=== PATIENT | male | born 1930 | race Caucasian/White ===

== ENCOUNTER 2016-12-21 13:42 | Emergency (ER) | payer MEDICARE, BC ==
--- NOTE | 2016-12-21 17:01 | US ---
Bilateral lower extremity deep venous ultrasound: Duplex and color flow imaging was obtained of the right and left common femoral, greater saphenous, superficial femoral, popliteal, posterior tibial and peroneal veins. Normal phasic flow, augmentation and compression is seen. Popliteal cysts are identified on both sides, larger on the right side. Impression: 1. Incidental popliteal cyst. 2. No evidence of deep venous thrombosis is seen within either the right or left lower extremities. Diagnostic code #2
--- NOTE | 2016-12-21 17:26 | EDM.PDOC ---
ED HPI GENERAL MEDICAL PROBLEM - General Chief Complaint: Cardiovascular Problem Stated Complaint: LEG SWELLING Time Seen by Provider: 12/21/16 14:07 Source of Information: Reports: Patient, Old Records, RN Notes Reviewed History Limitations: Reports: Other (The patient is somewhat confused and a very poor historian.) - History of Present Illness INITIAL COMMENTS - FREE TEXT/NARRATIVE: The patient states that he has had bilateral lower extremity edema for the past 7-10 days. No associated pain. The patient had a left lower 70 DVT at least one year ago, for which she was treated with Ellik was. This was discontinued 2016. The patient reports, however, that he has had bilateral lower extremity edema for approximately 2 years. He has previously had this treated with compression stockings, and the swelling decreased, until 7-10 days ago. The patient states that his last use of compression stockings was sometime around the new year. The patient states that he went to the office of Dr. Arteaga either yesterday or today, and was sent here. The patient denies recent chest pain, dyspnea, or palpitations. - Related Data Allergies Allergy/AdvReac Type Severity Reaction Status Date / Time No Known Drug Allergies Allergy none Verified 12/21/16 13:47 Home Meds: Home Meds Finasteride 5 mg PO DAILY 12/21/16 [History] Fish Oil/DHA/EPA [Fish Oil 1,200 MG] 1 each PO DAILY 12/21/16 [History] Levothyroxine [Synthroid] 88 mcg PO ACBREAKFAST 12/21/16 [History] Multivitamin [Daily Multiple Vitamin] 1 tab PO DAILY 12/21/16 [History] Terazosin [Hytrin] 4 mg PO BEDTIME 12/21/16 [History] atorvaSTATin [Lipitor] 40 mg PO BEDTIME 12/21/16 [History] Past Medical History Cardiovascular History: Reports: Blood Clots/VTE/DVT, High Cholesterol, Hypertension Gastrointestinal History: Reports: Diverticulosis, GERD Genitourinary History: Reports: BPH Endocrine/Metabolic History: Reports: Hypothyroidism Social & Family History - Tobacco Use Smoking Status *Q: Former Smoker Month Tobacco Last Used: Quit 1961 - Recreational Drug Use Recreational Drug Use: No - Living Situation & Occupation Living situation: Reports: Occupation: Retired ED ROS GENERAL - Review of Systems Review Of Systems: Unable To Obtain ED EXAM, GENERAL - Physical Exam Exam: See Below Exam Limited By: No Limitations General Appearance: Alert, WD/WN, No Apparent Distress Respiratory/Chest: No Respiratory Distress, Lungs Clear, Normal Breath Sounds, No Accessory Muscle Use Cardiovascular: Normal Peripheral Pulses, Regular Rate, Rhythm, No Gallop, No JVD, No Murmur, No Rub Peripheral Pulses: 4+: Radial (L), Radial (R) GI/Abdominal: Normal Bowel Sounds, Soft, Non-Tender, No Organomegaly, No Distention, No Abnormal Bruit, No Mass Extremities: Normal Inspection, Normal Range of Motion, Non-Tender, Normal Capillary Refill, Other (2+ pitting edema bilateral legs. Edema does not extend above the knees.) Neurological: Alert, No Motor/Sensory Deficits Psychiatric: Normal Affect Skin Exam: Warm, Dry, Intact, Normal Color, No Rash Course - Vital Signs Last Recorded V/S: Last Vital Signs Temp 36.8 C 12/21/16 13:50 Pulse 66 12/21/16 13:50 Resp 18 12/21/16 13:50 BP 128/69 12/21/16 13:50 Pulse Ox 99 12/21/16 13:50 - Orders/Labs/Meds Labs: Laboratory Tests 12/21/16 12/21/16 12/21/16 Range/Units 14:40 14:40 14:40 WBC 4.86 (4.23-9.07) K/mm3 RBC 3.83 L (4.63-6.08) M/mm3 Hgb 13.0 L (13.7-17.5) gm/L Hct 37.8 L (40.1-51.0) % MCV 98.7 H (79.0-92.2) fl MCH 33.9 H (25.7-32.2) pg MCHC 34.4 (32.2-35.5) g/dl RDW Std Deviation 48.9 H (35.1-43.9) fL Plt Count 125 L (163-337) K/mm3 MPV 8.0 L (9.4-12.3) fl Neutrophils % (Manual) 79 H (40-60) % Band Neutrophils % 0 (0-10) % Lymphocytes % (Manual) 18 L (20-40) % Atypical Lymphs % 0 % Monocytes % (Manual) 0 L (2-10) % Eosinophils % (Manual) 3 (0.8-7.0) % Basophils % (Manual) 0 L (0.2-1.2) Platelet Estimate Adequate RBC Morph Comment Normal PT 11.7 (8.0-13.0) SECONDS INR 1.07 APTT 29 (22-36) SECONDS Sodium 140 (136-145) mEq/L Potassium 4.3 (3.5-5.1) mEq/L Chloride 106 (98-107) mEq/L Carbon Dioxide 27 (21-32) mEq/L Anion Gap 11.3 (5-15) BUN 17 (7-18) mg/dL Creatinine 1.1 (0.7-1.3) mg/dL Est Cr Clr Drug Dosing 53.24 mL/min Estimated GFR (MDRD) > 60 (>60) mL/min BUN/Creatinine Ratio 15.5 (14-18) Glucose 108 (83-115) mg/dL Calcium 9.2 (8.5-10.1) mg/dL Total Bilirubin 0.4 (0.2-1.0) mg/dL AST 20 (15-37) U/L ALT 29 (16-63) U/L Alkaline Phosphatase 53 (46-116) U/L Total Protein 5.9 L (6.4-8.2) g/dl Albumin 3.0 L (3.4-5.0) g/dl Globulin 2.9 gm/dL Albumin/Globulin Ratio 1.0 (1-2) - Re-Assessments/Exams Free Text/Narrative Re-Assessment/Exam: 12/21/16 17:21 Venous Doppler of the bilateral lower extremities is read by Dr. Pimentel as: 1. Incidental popliteal cyst. 2. No evidence of deep venous thrombosis is seen within either the right or left lower extremities. 12/21/16 17:26 Test results discussed with the patient. The patient's bilateral lower extremity edema appears to be due to venous insufficiency. I am recommending to the patient that he resume using compression stockings, and elevate his lower extremities as much as possible when not ambulating. Departure - Departure Time of Disposition: 17:27 Disposition: Home, Self-Care 01 Condition: Good Clinical Impression: Venous insufficiency of both lower extremities Instructions: Edema Referrals: Brooks Arteaga MD [Primary Care Provider] - Forms: ED Department Discharge Additional Instructions: You were seen in the emergency room for swelling of both of your legs for the past 7-10 days. Workup in the ER included blood work and Dopplers of both of your lower extremities. Your entire workup was normal. You do not have a blood clot in either of your lower extremities. We recommend you resume using compression stockings. Apply them each morning, and remove them at bedtime. Elevate both of your legs as much as possible when not walking around. Follow-up with Dr. Arteaga as needed. If any other problems, please do not hesitate to return to the ER.
[2016-12-21 18:43] VITALS: BP 136/99
== END 2016-12-21 17:40 | disposition home or self-care (01) ==
LOC: JD.ED 13:42
DX: I87.2 Venous insufficiency (chronic) (peripheral) (principal); I10 Essential (primary) hypertension; E78.00 Pure hypercholesterolemia, unspecified; K21.9 Gastro-esophageal reflux disease without esophagitis; E03.9 Hypothyroidism, unspecified; Z79.899 Other long term (current) drug therapy; Z86.718 Personal history of other venous thrombosis and embolism; Z87.891 Personal history of nicotine dependence
CPT/HCPCS: 36415; 80053; 85025; 85610; 85730; 93970; 93970-26; 99283; 99285-25

== ENCOUNTER 2018-07-23 15:44 | Inpatient (IN) | payer OTHER, MEDICARE, BC ==
[2018-07-23] MEDS ORDERED: Diltiazem 50 MG/10 ML SDV IVPUSH ONE ×2 (16:18→17:06)
--- NOTE | 2018-07-23 16:19 | EDM.PDOC ---
ED HPI GENERAL MEDICAL PROBLEM - General Chief Complaint: Cardiovascular Problem Stated Complaint: PAINS IN BOTH LEG Time Seen by Provider: 07/23/18 16:11 Source of Information: Reports: Patient History Limitations: Reports: No Limitations - History of Present Illness INITIAL COMMENTS - FREE TEXT/NARRATIVE: 88-year-old male presents to the ED with his daughter. Chief complaint is increasing pain in his right lower extremity over the last 3-4 days. Heavy like a piece of lead and it's difficult to walk. He has had a previous DVT he believes in the right lower extremity as well. Is the pain is just about as bad above the knee as it is below the knee. Denies feeling any central chest pain . He is a little more short of breath than normal. Cough may be brings up a little bit of white sputum. Of note his heart rate on the monitor is in the 140s and clinically appears to be in atrial flutter. He states he is a little dizzy. He does do a lot of sitting and hasn't been out of the house much for the last several weeks due to the cold weather. No recent changes to any of his medications. Onset: Gradual Onset Date: 07/20/18 Duration: Day(s):, Getting Worse (Days) Location: Reports: Lower Extremity, Right (From catheter foot all the way up to the groin.) Quality: Reports: Ache, Throbbing Severity: Moderate Improves with: Reports: None Worsens with: Reports: Other Context: Denies: Activity (Seems to be worse while sitting.), Exercise, Lifting , Sick Contact, Trauma, Other Associated Symptoms: Reports: Cough (Little white sputum at times), cough w sputum, Loss of Appetite, Malaise, Shortness of Breath (Perhaps a little worse as of late.), Weakness. 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: Other (see below) (None.) Bilateral Leg Pain Score (Numeric/FACES): 5 - Related Data Allergies Allergy/AdvReac Type Severity Reaction Status Date / Time No Known Drug Allergies Allergy none Verified 07/23/18 15:47 Home Meds: Home Meds Finasteride 5 mg PO DAILY 12/21/16 [History] Fish Oil/DHA/EPA [Fish Oil 1,200 MG] 1 each PO DAILY 12/21/16 [History] Levothyroxine [Synthroid] 88 mcg PO ACBREAKFAST 12/21/16 [History] Multivitamin [Daily Multiple Vitamin] 1 tab PO DAILY 12/21/16 [History] Terazosin [Hytrin] 4 mg PO BEDTIME 12/21/16 [History] atorvaSTATin [Lipitor] 40 mg PO BEDTIME 12/21/16 [History] Cholecalciferol (Vitamin D3) [Vitamin D3] 2,000 unit PO DAILY 07/23/18 [History] Past Medical History Cardiovascular History: Reports: Blood Clots/VTE/DVT, High Cholesterol, Hypertension Gastrointestinal History: Reports: Diverticulosis, GERD Genitourinary History: Reports: BPH Endocrine/Metabolic History: Reports: Hypothyroidism Social & Family History - Living Situation & Occupation Living situation: Reports: Occupation: Retired ED ROS GENERAL - Review of Systems Review Of Systems: See Below Constitutional: Reports: Malaise, Weakness, Fatigue, Decreased Appetite, Weight Loss. Denies: Fever, Chills HEENT: Reports: Glasses, Hearing Loss Respiratory: Reports: Shortness of Breath (He is very hard of hearing and you have to speak quite loudly to speak with him.), Cough, Sputum (Mild cough I'll occasional white sputum production which is thick and tenacious.). Denies: Wheezing, Pleuritic Chest Pain Cardiovascular: Reports: Dyspnea on Exertion (Chronic edema both lower extremities much worse in the right leg last 3-4 days. Chronically), Edema. Denies: Chest Pain, Blood Pressure Problem, Claudication, Lightheadedness, Orthopnea, Palpitations Endocrine: Reports: Fatigue GI/Abdominal: Reports: No Symptoms : Reports: Frequency, Other Musculoskeletal: Reports: Joint Pain (Nocturia 1 or 2. Particularly his knees hips low back neck and shoulders.) Skin: Reports: Bruising Neurological: Reports: No Symptoms (Bruises fairly easily particularly hands and forearms) Psychiatric: Reports: No Symptoms Hematologic/Lymphatic: Reports: No Symptoms Immunologic: Reports: No Symptoms ED EXAM, GENERAL - Physical Exam Exam: See Below Exam Limited By: No Limitations General Appearance: Alert, WD/WN, No Apparent Distress, Other (O2 sats are 99% on room air. Heart rate is 144/m with atrial flutter.) Eye Exam: Bilateral Eye: Normal Inspection, PERRL Throat/Mouth: Normal Inspection, Normal Lips, Normal Oropharynx. No: Normal Teeth Neck: Normal Inspection, Supple, Non-Tender, Full Range of Motion. No: Lymphadenopathy (L), Lymphadenopathy (R) Respiratory/Chest: Lungs Clear, Decreased Breath Sounds. No: Rales (To the lower 20% of lung pisano.), Rhonchi, Wheezing Cardiovascular: No Murmur ( No obvious murmurs identified), Irregularly Irregular (Monitor shows atrial flutter at 1 44/m.), Other (Heart sounds are heard to discern because of the fast rate.). No: Normal Peripheral Pulses, Regular Rate, Rhythm, No Edema Peripheral Pulses: 0: Posterior Tibial (L) (There are no pulses palpable below his femorals.), Posterior Tibial (R), Dorsalis Pedis (L), Dorsalis Pedis (R) GI/Abdominal: Normal Bowel Sounds, Soft, Non-Tender, No Organomegaly, No Abnormal Bruit, No Mass, Pelvis Stable, Other (Moderately sized umbilical hernia which is easily) (Male) Exam: No Hernia (No inguinal hernias.) Back Exam: Normal Inspection, Decreased Range of Motion. No: CVA Tenderness (L) Extremities: Other (Patient has dependent edema in both lower extremities. To 2 + edema in the left lower extremity plus edema in the right lower extremity with erythema along the medial calf and medial aspect of the thigh up to the groin. There is edema up into the mid thigh. The examination is highly suggestive of any underlying DVT in the calf. Is quite taut stool palpable in the foot.) Neurological: Alert, Oriented, CN II-XII Intact, Normal Cognition Psychiatric: Normal Affect, Normal Mood Skin Exam: Warm, Dry, Intact, Normal Color, Other (Fine erythematous rash along the inner aspect of the right thigh and slightly increased warmth and redness of the medial anterior aspect of the right leg) EKG INTERPRETATION EKG Date: 07/23/18 Time: 16:00 Rhythm: A-Flutter (With rate of 1 41/m) Rate (Beats/Min): 141 [place]: RAD-Right [place] Deviation (Minimal right axis deviation 93) P-Wave: Absent QRS: LBBB (Incomplete left bundle branch block pattern) ST-T: Depressed (ST segment appears to be depressed V3 to V6.) QT: Prolonged (QTC is prolonged at 622 but is likely be inaccurate due to the rapid rate and difficulty opening where the T-wave are.) Course - Vital Signs Last Recorded V/S: Last Vital Signs Temp 36.2 C 07/23/18 18:59 Pulse 142 H 07/23/18 15:57 Resp 20 07/23/18 18:59 BP 131/69 07/23/18 18:59 Pulse Ox 96 07/23/18 18:59 - Orders/Labs/Meds Orders: Active Orders 24 hr Category Date Time Status Cardiac Monitoring [RC] CONTINUOUS Care 07/23/18 18:22 Active EKG Documentation Completion [RC] STAT Care 07/23/18 16:12 Active Height and Weight [RC] 04 Care 07/23/18 18:21 Active Intake and Output [RC] 04,16 Care 07/23/18 18:22 Active Oxygen Therapy [RC] PRN Care 07/23/18 18:21 Active RT Aerosol Therapy [RC] ASDIRECTED Care 07/23/18 18:24 Active Up With Assistance [RC] ASDIRECTED Care 07/23/18 18:21 Active Up ad Jannette [RC] ASDIRECTED Care 07/23/18 18:21 Active VTE/DVT Education [RC] BID Care 07/23/18 18:21 Active Vital Signs [RC] Q1HR Care 07/23/18 18:21 Active Consult to Case Management/Signwriter [CONS] Cons 07/23/18 18:21 Active Routine Consult to Spiritual Care [CONS] Routine Cons 07/23/18 18:21 Active OT Evaluation and Treatment [CONS] Routine Cons 07/23/18 18:21 Active PT Evaluation and Treatment [CONS] Routine Cons 07/23/18 18:21 Active Heart Healthy Diet [DIET] Diet 07/23/18 Dinner Active Chest 1V Frontal [CR] Stat Exams 07/23/18 16:12 Taken VL Duplex Lwr Ext Veins Ltd Rt [US] Stat Exams 07/23/18 16:20 Taken BASIC METABOLIC PANEL,BMP [CHEM] AM Lab 07/24/18 05:11 Ordered BASIC METABOLIC PANEL,BMP [CHEM] AM Lab 07/25/18 05:11 Ordered BASIC METABOLIC PANEL,BMP [CHEM] AM Lab 07/26/18 05:11 Ordered BASIC METABOLIC PANEL,BMP [CHEM] AM Lab 07/27/18 05:11 Ordered CBC WITH AUTO DIFF [HEME] AM Lab 07/24/18 05:11 Ordered MAGNESIUM [CHEM] AM Lab 07/24/18 05:11 Ordered MAGNESIUM [CHEM] AM Lab 07/25/18 05:11 Ordered MAGNESIUM [CHEM] AM Lab 07/26/18 05:11 Ordered MAGNESIUM [CHEM] AM Lab 07/27/18 05:11 Ordered Acetaminophen [Tylenol] Med 07/23/18 18:21 Active 650 mg PO Q4H PRN Acetaminophen/HYDROcodone [[place] 325-5 MG] Med 07/23/18 18:21 Active 1 tab PO Q4H PRN Albuterol/Ipratropium [DuoNeb 3.0-0.5 MG/3 ML] Med 07/23/18 18:21 Active 3 ml NEB Q4H PRN Bisacodyl [Dulcolax] Med 07/23/18 18:21 Active 5 mg PO DAILY PRN Cholecalciferol (Vitamin D3) [Vitamin D3] Med 07/24/18 09:00 Active 2,000 units PO DAILY Diltiazem 125 mg Med 07/23/18 18:15 Active Sodium Chloride 0.9% [Normal Saline] 100 ml IV ASDIRECTED Docusate Sodium [Colace] Med 07/23/18 18:21 Active 100 mg PO BID PRN Docusate Sodium/Sennosides [Senna Plus] Med 07/23/18 18:21 Active 1 tab PO BID PRN Finasteride [Proscar] Med 07/24/18 09:00 Active 5 mg PO DAILY Fish Oil/[place]-3 Fatty Acids [Fish Oil] Med 07/24/18 09:00 Active 1 gm PO DAILY HYDROmorphone [Dilaudid] Med 07/23/18 18:21 Active 0.25 mg IVPUSH Q2H PRN LORazepam [Ativan] Med 07/23/18 18:20 Active 2 mg IVPUSH Q4H PRN Levothyroxine [Synthroid] Med 07/24/18 06:00 Active 88 mcg PO ACBREAKFAST Metoprolol Tartrate [Lopressor] Med 07/23/18 18:20 Active 5 mg IVPUSH Q4H PRN Multivitamins,Therapeutic [Thera] Med 07/24/18 09:00 Active 1 each PO DAILY Ondansetron [Zofran] Med 07/23/18 18:21 Active 4 mg IV Q6H PRN Pharmacy to Dose - Magnesium R [Pharmacy to Dose - Med 07/23/18 18:30 Pending Magnesium Replacement] 1 dose .XX ASDIRECTED Pharmacy to Dose - Potassium R [Pharmacy to Dose - Med 07/23/18 18:30 Pending Potassium Replacement] 1 dose .XX ASDIRECTED Polyethylene Glycol 3350 [MiraLAX] Med 07/23/18 18:21 Active 17 gm PO DAILY PRN Rosuvastatin [Crestor] Med 07/24/18 21:00 Active 10 mg PO BEDTIME Sodium Chloride 0.9% [Normal Saline] 1,000 ml Med 07/23/18 16:15 Active IV ASDIRECTED Temazepam [Restoril] Med 07/23/18 18:21 Active 7.5 mg PO BEDTIME PRN Terazosin [Hytrin] Med 07/23/18 21:00 Active 4 mg PO BEDTIME hydrALAZINE [Apresoline] Med 07/23/18 18:20 Active 10 mg IVPUSH Q4H PRN Medication Orders Acetaminophen (Tylenol) 650 mg PO Q4H PRN PRN Reason: Pain (Mild 1-3)/fever Hydrocodone Bitart/Acetaminophen ([place] 325-5 Mg) 1 tab PO Q4H PRN PRN Reason: Pain (moderate 4-6) Albuterol/Ipratropium (Duoneb 3.0-0.5 Mg/3 Ml) 3 ml NEB Q4H PRN PRN Reason: Shortness Of Breath/wheezing Apixaban (Eliquis) 10 mg PO BID [facility] Stop: 07/30/18 21:01 Apixaban (Eliquis) 5 mg PO BID [facility] Bisacodyl (Dulcolax) 5 mg PO DAILY PRN PRN Reason: Constipation Cholecalciferol (Vitamin D3) 2,000 units PO DAILY [facility] Docusate Sodium (Colace) 100 mg PO BID PRN PRN Reason: Constipation Finasteride (Proscar) 5 mg PO DAILY [facility] Fish Oil (Fish Oil) 1 gm PO DAILY [facility] Hydralazine HCl (Apresoline) 10 mg IVPUSH Q4H PRN PRN Reason: Hypertension Hydromorphone HCl (Dilaudid) 0.25 mg IVPUSH Q2H PRN PRN Reason: Pain (severe 7-10) Sodium Chloride (Normal Saline) 1,000 mls @ 75 mls/hr IV ASDIRECTED [facility] Last Admin: 07/23/18 16:44 Dose: 75 mls/hr Diltiazem HCl 125 mg/ Sodium (Chloride) 125 mls @ 15 mls/hr IV ASDIRECTED [facility] Levothyroxine Sodium (Synthroid) 88 mcg PO ACBREAKFAST [facility] Lorazepam (Ativan) 2 mg IVPUSH Q4H PRN PRN Reason: Seizures Magnesium Sulfate (Pharmacy To Dose - Magnesium Replacement) 1 dose .XX ASDIRECTED [facility] Metoprolol Tartrate (Lopressor) 5 mg IVPUSH Q4H PRN PRN Reason: Tachycardia Metoprolol Tartrate (Lopressor) 25 mg PO Q12H [facility] Multivitamins (Thera) 1 each PO DAILY [facility] Ondansetron HCl (Zofran) 4 mg IV Q6H PRN PRN Reason: Nausea/Vomiting Polyethylene Glycol (Miralax) 17 gm PO DAILY PRN PRN Reason: Constipation Potassium Chloride (Pharmacy To Dose - Potassium Replacement) 1 dose .XX ASDIRECTED [facility] Rosuvastatin Calcium (Crestor) 10 mg PO BEDTIME [facility] Senna/Docusate Sodium (Senna Plus) 1 tab PO BID PRN PRN Reason: Constipation Temazepam (Restoril) 7.5 mg PO BEDTIME PRN PRN Reason: Sleep Terazosin HCl (Hytrin) 4 mg PO BEDTIME [facility] Labs: Laboratory Tests 07/23/18 07/23/18 07/23/18 Range/Units 16:20 16:20 16:20 WBC 5.79 (4.23-9.07) K/mm3 RBC 3.71 L (4.63-6.08) M/mm3 Hgb 12.1 L (13.7-17.5) gm/L Hct 37.2 L (40.1-51.0) % MCV 100.3 H (79.0-92.2) fl MCH 32.6 H (25.7-32.2) pg MCHC 32.5 (32.2-35.5) g/dl RDW Std Deviation 49.0 H (35.1-43.9) fL Plt Count 216 (163-337) K/mm3 MPV 7.9 L (9.4-12.3) fl Neutrophils % (Manual) 72 H (40-60) % Band Neutrophils % 0 (0-10) % Lymphocytes % (Manual) 16 L (20-40) % Atypical Lymphs % 0 % Monocytes % (Manual) 10 (2-10) % Eosinophils % (Manual) 1 (0.8-7.0) % Basophils % (Manual) 1 (0.2-1.2) Platelet Estimate Adequate Anisocytosis 1+ slight Macrocytosis 1+ slight Ovalocytes 1+ slight ESR (0-15) mm/hr PT 12.3 H (9.5-12.1) SECONDS INR 1.13 APTT 27 (24-31) SECONDS D-Dimer, Quantitative (0.19-0.50) mg/L Sodium 139 (136-145) mEq/L Potassium 4.4 (3.5-5.1) mEq/L Chloride 106 (98-107) mEq/L Carbon Dioxide 25 (21-32) mEq/L Anion Gap 12.4 (5-15) BUN 20 H (7-18) mg/dL Creatinine 1.1 (0.7-1.3) mg/dL Est Cr Clr Drug Dosing 51.34 mL/min Estimated GFR (MDRD) > 60 (>60) mL/min BUN/Creatinine Ratio 18.2 H (14-18) Glucose 114 (83-115) mg/dL Calcium 9.0 (8.5-10.1) mg/dL Magnesium 2.0 (1.8-2.4) mg/dl Total Bilirubin 0.5 (0.2-1.0) mg/dL AST 14 L (15-37) U/L ALT 27 (16-63) U/L Alkaline Phosphatase 75 (46-116) U/L CK-MB (CK-2) 1.4 (0-3.6) ng/ml Troponin I < 0.017 (0.00-0.056) ng/mL C-Reactive Protein 4.4 H* (<1.0) mg/dL NT-Pro-B Natriuret Pep (0-450) pg/mL Total Protein 6.5 (6.4-8.2) g/dl Albumin 2.7 L (3.4-5.0) g/dl Globulin 3.8 gm/dL Albumin/Globulin Ratio 0.7 L (1-2) TSH 3rd Generation (0.358-3.74) uIU/mL 07/23/18 07/23/18 07/23/18 Range/Units 16:20 16:20 16:20 WBC (4.23-9.07) K/mm3 RBC (4.63-6.08) M/mm3 Hgb (13.7-17.5) gm/L Hct (40.1-51.0) % MCV (79.0-92.2) fl MCH (25.7-32.2) pg MCHC (32.2-35.5) g/dl RDW Std Deviation (35.1-43.9) fL Plt Count (163-337) K/mm3 MPV (9.4-12.3) fl Neutrophils % (Manual) (40-60) % Band Neutrophils % (0-10) % Lymphocytes % (Manual) (20-40) % Atypical Lymphs % % Monocytes % (Manual) (2-10) % Eosinophils % (Manual) (0.8-7.0) % Basophils % (Manual) (0.2-1.2) Platelet Estimate Anisocytosis Macrocytosis Ovalocytes ESR 18 H (0-15) mm/hr PT (9.5-12.1) SECONDS INR APTT (24-31) SECONDS D-Dimer, Quantitative 9.82 H (0.19-0.50) mg/L Sodium (136-145) mEq/L Potassium (3.5-5.1) mEq/L Chloride (98-107) mEq/L Carbon Dioxide (21-32) mEq/L Anion Gap (5-15) BUN (7-18) mg/dL Creatinine (0.7-1.3) mg/dL Est Cr Clr Drug Dosing mL/min Estimated GFR (MDRD) (>60) mL/min BUN/Creatinine Ratio (14-18) Glucose (83-115) mg/dL Calcium (8.5-10.1) mg/dL Magnesium (1.8-2.4) mg/dl Total Bilirubin (0.2-1.0) mg/dL AST (15-37) U/L ALT (16-63) U/L Alkaline Phosphatase (46-116) U/L CK-MB (CK-2) (0-3.6) ng/ml Troponin I (0.00-0.056) ng/mL C-Reactive Protein (<1.0) mg/dL NT-Pro-B Natriuret Pep 1789 H (0-450) pg/mL Total Protein (6.4-8.2) g/dl Albumin (3.4-5.0) g/dl Globulin gm/dL Albumin/Globulin Ratio (1-2) TSH 3rd Generation (0.358-3.74) uIU/mL 07/23/18 Range/Units 16:20 WBC (4.23-9.07) K/mm3 RBC (4.63-6.08) M/mm3 Hgb (13.7-17.5) gm/L Hct (40.1-51.0) % MCV (79.0-92.2) fl MCH (25.7-32.2) pg MCHC (32.2-35.5) g/dl RDW Std Deviation (35.1-43.9) fL Plt Count (163-337) K/mm3 MPV (9.4-12.3) fl Neutrophils % (Manual) (40-60) % Band Neutrophils % (0-10) % Lymphocytes % (Manual) (20-40) % Atypical Lymphs % % Monocytes % (Manual) (2-10) % Eosinophils % (Manual) (0.8-7.0) % Basophils % (Manual) (0.2-1.2) Platelet Estimate Anisocytosis Macrocytosis Ovalocytes ESR (0-15) mm/hr PT (9.5-12.1) SECONDS INR APTT (24-31) SECONDS D-Dimer, Quantitative (0.19-0.50) mg/L Sodium (136-145) mEq/L Potassium (3.5-5.1) mEq/L Chloride (98-107) mEq/L Carbon Dioxide (21-32) mEq/L Anion Gap (5-15) BUN (7-18) mg/dL Creatinine (0.7-1.3) mg/dL Est Cr Clr Drug Dosing mL/min Estimated GFR (MDRD) (>60) mL/min BUN/Creatinine Ratio (14-18) Glucose (83-115) mg/dL Calcium (8.5-10.1) mg/dL Magnesium (1.8-2.4) mg/dl Total Bilirubin (0.2-1.0) mg/dL AST (15-37) U/L ALT (16-63) U/L Alkaline Phosphatase (46-116) U/L CK-MB (CK-2) (0-3.6) ng/ml Troponin I (0.00-0.056) ng/mL C-Reactive Protein (<1.0) mg/dL NT-Pro-B Natriuret Pep (0-450) pg/mL Total Protein (6.4-8.2) g/dl Albumin (3.4-5.0) g/dl Globulin gm/dL Albumin/Globulin Ratio (1-2) TSH 3rd Generation 1.793 (0.358-3.74) uIU/mL Meds: Medications Generic Name Dose Route Start Last Admin Trade Name Freq PRN Reason Stop Dose Admin Acetaminophen 650 mg 07/23/18 18:21 Tylenol PO Q4H PRN Pain (Mild 1-3)/fever Hydrocodone Bitart/Acetaminophen 1 tab 07/23/18 18:21 [place] 325-5 Mg PO Q4H PRN Pain (moderate 4-6) Albuterol/Ipratropium 3 ml 07/23/18 18:21 Duoneb 3.0-0.5 Mg/3 Ml NEB Q4H PRN Shortness Of Breath/wheezing Apixaban 10 mg 07/24/18 09:00 Eliquis PO 07/30/18 21:01 BID KRISSY Apixaban 5 mg 07/31/18 09:00 Eliquis PO BID KRISSY Bisacodyl 5 mg 07/23/18 18:21 Dulcolax PO DAILY PRN Constipation Cholecalciferol 2,000 units 07/24/18 09:00 Vitamin D3 PO DAILY [facility] Docusate Sodium 100 mg 07/23/18 18:21 Colace PO BID PRN Constipation Finasteride 5 mg 07/24/18 09:00 Proscar PO DAILY KRISSY Fish Oil 1 gm 07/24/18 09:00 Fish Oil PO DAILY KRISSY Hydralazine HCl 10 mg 07/23/18 18:20 Apresoline IVPUSH Q4H PRN Hypertension Hydromorphone HCl 0.25 mg 07/23/18 18:21 Dilaudid IVPUSH Q2H PRN Pain (severe 7-10) Sodium Chloride 1,000 mls @ 75 mls/hr 07/23/18 16:15 07/23/18 16:44 Normal Saline IV 75 mls/hr ASDIRECTED KRISSY Administration Diltiazem HCl 125 mg/ Sodium 125 mls @ 15 mls/hr 07/23/18 18:15 Chloride IV ASDIRECTED KRISSY 15 MG/HR Levothyroxine Sodium 88 mcg 07/24/18 06:00 Synthroid PO ACBREAKFAST KRISSY Lorazepam 2 mg 07/23/18 18:20 Ativan IVPUSH Q4H PRN Seizures Magnesium Sulfate 1 dose 07/23/18 18:30 Pharmacy To Dose - Magnesium Replacement .XX ASDIRECTED [facility] Metoprolol Tartrate 5 mg 07/23/18 18:20 Lopressor IVPUSH Q4H PRN Tachycardia Metoprolol Tartrate 25 mg 07/23/18 21:00 Lopressor PO Q12H KRISSY Multivitamins 1 each 07/24/18 09:00 Thera PO DAILY [facility] Ondansetron HCl 4 mg 07/23/18 18:21 Zofran IV Q6H PRN Nausea/Vomiting Polyethylene Glycol 17 gm 07/23/18 18:21 Miralax PO DAILY PRN Constipation Potassium Chloride 1 dose 07/23/18 18:30 Pharmacy To Dose - Potassium Replacement .XX ASDIRECTED [facility] Rosuvastatin Calcium 10 mg 07/24/18 21:00 Crestor PO BEDTIME [facility] Senna/Docusate Sodium 1 tab 07/23/18 18:21 Senna Plus PO BID PRN Constipation Temazepam 7.5 mg 07/23/18 18:21 Restoril PO BEDTIME PRN Sleep Terazosin HCl 4 mg 07/23/18 21:00 Hytrin PO BEDTIME KRISSY Discontinued Medications Generic Name Dose Route Start Last Admin Trade Name Freq PRN Reason Stop Dose Admin Diltiazem HCl 10 mg 07/23/18 16:18 07/23/18 16:37 Cardizem IVPUSH 07/23/18 16:19 10 mg ONETIME ONE Administration Diltiazem HCl 10 mg 07/23/18 17:06 07/23/18 17:15 Cardizem IVPUSH 07/23/18 17:07 10 mg ONETIME ONE Administration Enoxaparin Sodium 90 mg 07/23/18 16:31 07/23/18 16:50 Lovenox SUBCUT 07/23/18 16:32 90 mg ONETIME ONE Administration Nicardipine HCl 25 mg/ Sodium 260 mls @ 104 mls/hr 07/23/18 16:30 Chloride IV ASDIRECTED KRISSY 10 MG/HR Diltiazem HCl 125 mg/ Sodium 125 mls @ 10 mls/hr 07/23/18 16:45 07/23/18 16: 45 Chloride IV 10 mg/hr ASDIRECTED KRISSY 10 mls/hr Administration 10 MG/HR - Radiology Interpretation Free Text/Narrative:: 88-year-old male presents to the ED primarily because of right lower extremity swelling and pain. States it's gradually gotten worse over the last 3-4 days. He believes he had a previous DVT in the right leg in the past. The other problem identified easily that he is in atrial flutter with a rate in the 140s without any significant chest pain or dyspnea. He doesn't recognize that he has any palpitations or fast heart rate. He is on no medications that would be used for rate control. His new-onset atrial flutter. His weight is currently 188 pounds or 90 kg. Because he said risk of stroke due to the atrial flutter and he likely has a DVT in his right lower extremity will be placed on Lovenox 90 mg subcutaneous now. Plan will be to control his rate with Cardizem 10 mg IV bolus and then 10 mg per hour. He will have a Doppler ultrasound of his right lower extremity. Routine labs include cardiac markers BNP and d-dimer. I am going to give him Lovenox 90 mg subcutaneous as I strongly believe he has a extensive DVT in his right lower extremity and he is in atrial flutter in the 140s. Therefore he is at risk of stroke as well as PE. - Re-Assessments/Exams Free Text/Narrative Re-Assessment/Exam: 07/23/18 17:05 Doppler ultrasound confirms a DVT all way up to the groin involving the superficial femoral vein as well. Vision has received his Lovenox 90 mg subcutaneous. Are back to help us define a long-term anticoagulant as will be based on his renal function. His sats are 98-99% and it's highly unlikely that he has suffered a pulmonary embolism. It still remains 1:30 7/1/ 38. He's been on a Cardizem drip at 10 mg per hour for the last 20 minutes. It' s been over half an hour since he had Cardizem 10 mg IV bolus. Will repeat Cardizem 10 mg IV bolus. Blood pressure is currently 117/89 07/23/18 18:09 Labs are back showing a normal white count at 5.79. Differential is 72% neutrophils and no band cells. Hemoglobin is 12.1 with hematocrit of 37.2. MCV is elevated at 100.3. Platelet count 216,000. The smear shows 1+ anisocytosis and 1+ macrocytosis and 1+ ovalocytes. Sedimentation rate is 18. PT is 12.3 with an INR of 1.13. PTT is 27 d-dimer is markedly elevated at 9.82 . Sodium is 139 with a potassium of 4.4. Chloride is 106 with a bicarbonate of 25. Anion gap is normal at 12.4. BUN is slightly elevated at 20 with a creatinine of 1.1. GFR remains greater than 60. Glucose is 114. Calcium is 9.0 magnesium is 2.0. Liver function is normal. CK-MB is 1.4 at the troponin I of less than 0.017. C-reactive protein is 4.4 BNP is elevated at 1789. Total protein is 6.5 with an albumin fraction slightly low at 2.7. TSH is 1.793. Return heart rate is back up into the 120s. Her pressure is 114/98 which is unlikely as the pulse pressures too close together. O2 sats remained 94-96%. Case will be discussed with on-call hospice Dr. Monroy with a view to admission to the hospital. Need to be admitted to the intensive care unit because of the Cardizem drip. Drip will be increased to 07/23/18 18:[address] Monroy--promotion writer hospitalist and he has accepted care of this patient. He will be admitted to the intensive care unit because of being on a Cardizem drip. He is in mild congestive heart failure although relatively asymptomatic. Once his blood pressure is stabilized from the Cardizem drip and we no longer have to keep changing it he should have a dose of Lasix IV. Departure - Departure Time of Disposition: 18:55 Disposition: Admitted As Inpatient 68 Condition: Fair Clinical Impression: Atrial flutter with rapid ventricular response, Dvt femoral (deep venous thrombosis) CHF exacerbation Qualifiers: Heart failure type: unspecified Qualified Code(s): I50.9 - Heart failure, unspecified - My Orders Last 24 Hours: My Active Orders 07/23/18 16:12 EKG Documentation Completion [RC] STAT Chest 1V Frontal [CR] Stat 07/23/18 16:15 Sodium Chloride 0.9% [Normal Saline] 1,000 ml IV ASDIRECTED 07/23/18 16:20 VL Duplex Lwr Ext Veins Ltd Rt [US] Stat 07/23/18 18:15 Diltiazem 125 mg Sodium Chloride 0.9% [Normal Saline] 100 ml IV ASDIRECTED - Assessment/Plan Last 24 Hours: My Active Orders 07/23/18 16:12 EKG Documentation Completion [RC] STAT Chest 1V Frontal [CR] Stat 07/23/18 16:15 Sodium Chloride 0.9% [Normal Saline] 1,000 ml IV ASDIRECTED 07/23/18 16:20 VL Duplex Lwr Ext Veins Ltd Rt [US] Stat 07/23/18 18:15 Diltiazem 125 mg Sodium Chloride 0.9% [Normal Saline] 100 ml IV ASDIRECTED
[2018-07-23] MEDS ORDERED: niCARdipine HCl 25 MG in Sodium Chloride 0.9% 250 ML IV SCH (16:30)
[2018-07-23] MEDS ORDERED: Enoxaparin 80 MG/0.8 ML Syringe SUBCUT ONE (16:31)
[2018-07-23] MEDS: Sodium Chloride 0.9% 1,000 ML IV SCH (16:44)
[2018-07-23] MEDS ORDERED: Diltiazem 125 MG in Sodium Chloride 0.9% 100 ML IV SCH ×2 (16:45→18:15)
[2018-07-23] MEDS ORDERED: hydrALAZINE 20 MG/ML SDV IVPUSH PRN (18:20)
[2018-07-23] MEDS ORDERED: LORazepam 2 MG/ML SDV IVPUSH PRN (18:20)
[2018-07-23] MEDS ORDERED: Metoprolol Tartrate 5 MG/5 ML SDV IVPUSH PRN (18:20)
[2018-07-23] MEDS ORDERED: Bisacodyl 5 MG Tab PO PRN (18:21)
[2018-07-23] MEDS ORDERED: Acetaminophen 325 MG Tab PO PRN (18:21)
[2018-07-23] MEDS ORDERED: Albuterol/Ipratropium 3.0-0.5 MG/3 ML Neb Soln NEB PRN (18:21)
[2018-07-23] MEDS ORDERED: Acetaminophen/HYDROcodone 325-5 MG Tab PO PRN (18:21)
[2018-07-23] MEDS ORDERED: Temazepam 7.5 MG Cap PO PRN (18:21)
[2018-07-23] MEDS ORDERED: Polyethylene Glycol 3350 Powder 17 GM Packet PO PRN (18:21)
[2018-07-23] MEDS ORDERED: Docusate Sodium 100 MG Cap PO PRN (18:21)
[2018-07-23] MEDS ORDERED: HYDROmorphone 1 MG/ML Syringe IVPUSH PRN (18:21)
[2018-07-23] MEDS ORDERED: Ondansetron 4 MG/2 ML SDV IV PRN (18:21)
--- NOTE | 2018-07-23 19:43 | US ---
Right lower extremity deep venous ultrasound: Duplex and color flow imaging was obtained of the right common femoral, proximal greater saphenous, superficial femoral, popliteal, posterior tibial and peroneal veins. Left common femoral vein was also evaluated. Note: This exam has only now been sent for final interpretation. Findings: Lack of phasic flow, augmentation and compression is seen within the common femoral, superficial femoral and popliteal veins. Posterior tibial vein appears to be patent. Peroneal vein not well seen due to lower extremity edema. Left common femoral vein appears patent. Impression: 1. Extensive deep venous thrombosis within the right common femoral vein, superficial femoral vein and popliteal veins. 2. Lower extremity subcutaneous edema. Diagnostic code #5
[2018-07-23] MEDS: Metoprolol Tartrate 25 MG Tab PO SCH (21:25)
[2018-07-23] MEDS ORDERED: Midodrine 5 MG Tab PO STA (21:35)
--- NOTE | 2018-07-23 23:24 | PCM.SN ---
- Free Text/Narrative Note: Patient seen and examined at bedside. His right lower leg has dependent/pitting edema with erythema along the medial calf and mid thigh all the way up to the groin. He is positive for Sudheer's sign. Has sensation on affected limb. Noted pedal edema at 2+ on palpation. He is comfortable in bed w/o complaints of shortness of breath or chest pain. He is on room air sating at 96%. His blood pressures are currently low (relative hypotension) from recent Cardizem treatment for atrial flutter. However he is now off Cardizem drip and he will be switched to beta blockade starting tomorrow. Has a one time dose of Midorine in any case his pressure further drops. Patient received Lovenox 90 mg SubQ x 1 in ED. We will switch him to Eliquis 5 mg po BID for pharmacy to dose for AM dosing. DDx: Thrombophlebitis. We will have General Surgery take a look at his leg in AM for further input.
[2018-07-23] MEDS ORDERED: DICLOFENAC SODIUM TOP PRN (23:57)
[2018-07-24] MEDS ORDERED: Diclofenac Sodium 1% Gel 100 GM Tube TOP PRN (00:45)
[2018-07-24] MEDS: Levothyroxine 88 MCG Tab PO SCH (05:38)
[2018-07-24] MEDS: Hydrochlorothiazide 12.5 MG Cap PO SCH ×2 (05:38→14:09)
[2018-07-24] MEDS: Furosemide 20 MG/2 ML VIAL IVPUSH SCH ×2 (05:38→13:43)
[2018-07-24] MEDS: Sodium Chloride 0.9% 1,000 ML IV SCH (05:38)
--- NOTE | 2018-07-24 07:54 | CR ---
Chest: Portable view of the chest was obtained. Comparison: No prior chest x-ray. Heart size is normal. Tortuous thoracic aorta is seen. Elevated right hemidiaphragm is noted which likely is chronic. Lungs are clear with no acute parenchymal change. Bony structures are grossly intact. Impression: 1. Incidental findings. Nothing acute is suspected on portable chest x-ray. Diagnostic code #2
[2018-07-24] MEDS: Multivitamins,Therapeutic Tab PO SCH (08:24)
[2018-07-24] MEDS: Finasteride 5 MG Tab PO SCH (08:24)
[2018-07-24] MEDS: Cholecalciferol (Vitamin D3) 1,000 Unit Tab PO SCH (08:24)
[2018-07-24] MEDS: Fish Oil/Omega-3 Fatty Acids 1 Gm Cap PO SCH (08:24)
[2018-07-24] MEDS: Metoprolol Tartrate 25 MG Tab PO SCH ×2 (08:24→20:47)
[2018-07-24] MEDS: Apixaban 5 MG Tab PO SCH ×2 (08:24→20:43)
[2018-07-24] MEDS ORDERED: Diltiazem 180 MG Cap.CD PO SCH (09:00)
--- NOTE | 2018-07-24 09:48 | PCM.HP ---
H&P History of Present Illness - General Date of Service: 07/24/18 Admit Problem/Dx: Admission Diagnosis/Problem Admission Diagnosis/Problem Atrial flutter with rapid ventricular response Source of Information: Patient, Old Records, Provider, RN, RN Notes Reviewed History Limitations: Reports: No Limitations - History of Present Illness Initial Comments - Free Text/Narative: Maxi Santamaria is an 88 yo who presented to our ED on the evening of 07/23/18 with bilateral leg pain. He is accompanied by his daughter. Reports he has had increasing pain in his right lower extremity over the past 3-4 days. He reports heavy like a piece of lead notes very difficult to walk. Reports he had a previous DVT and he thinks that that was in his right lower extremity as well. Reports pain is equal above and below the knee. Denies any chest pain but states he is a little more short of breath than normal. He does report a cough and brings up a little bit of white sputum. He is noted to have a heart rate of 140 and appears to be in atrial flutter. He also reports he feels a little dizzy. States he does do a lot of sitting and has not been moving too much around the house due to weather. No recent changes in his medication. In the ED twelve-lead EKG is obtained showing a flutter rate of 141. There is right axis deviation and incomplete left bundle branch block. ST segment appears very depressed and V3 to V6 and a QTC is prolonged however it is noted that this is likely inaccurate. Temperature was 36.2 Celsius. Pulse 142. Respirations 20. Blood pressure 131/69. Pulse ox 96%. Labs are obtained: WBC normal at 5.79. Hemoglobin 12.1. Hematocrit 37.2. He is macrocytic. Reports a good at 216,000. Neutrophils are elevated at 72%. Band neutrophils were 0. PT is 12.3. INR 1.13. APTT 27. Sodium was 139. Potassium 4.4. Chloride 106. Lanoxin 25. Anion gap 12.4. BUN is 20. Creatinine 1.1. EGFR greater than 60. Glucose is 114. Calcium 9.0. Magnesium 2.1. Bilirubin 0.5. AST is 14, ALT 27, alkaline phosphatase 75. CK-MB is 1.4. Troponin is less than 0.017. CRP is 4.4. Protein 6.5. Albumin 2.7. ESR is 18. D-dimer is very high at 9.82. ProBNP is 1789. TSH is normal at 1.793. He is given IV push diltiazem with minimal response and then started on a Cardizem drip. He is given 1 mg/kg Lovenox. He is also started on nicardipine. Venous Doppler ultrasound was obtained of the right extremity showing "extensive deep venous thrombosis within the right common femoral vein, superficial femoral vein, and popliteal veins." Lower extremity subcutaneous edema is also noted. Chest x- rays obtained showing incidental findings and nothing acute. Reduction saturations remained 90-99% is unlikely he is having a PE as well. He carries a history of: DVT, HLD, hypertension, diverticulosis, GERD, BPH, hypothyroidism. He is a full code. His PCP is Dr. Arteaga. Bilateral Leg Pain Score (Numeric/FACES): 5 - Related Data Allergies/Adverse Reactions: Allergies Allergy/AdvReac Type Severity Reaction Status Date / Time No Known Drug Allergies Allergy none Verified 07/23/18 15:47 Home Medications: Home Meds Finasteride 5 mg PO DAILY 12/21/16 [History] Fish Oil/DHA/EPA [Fish Oil 1,200 MG] 1 each PO DAILY 12/21/16 [History] Levothyroxine [Synthroid] 88 mcg PO ACBREAKFAST 12/21/16 [History] Terazosin [Hytrin] 4 mg PO BEDTIME 12/21/16 [History] atorvaSTATin [Lipitor] 40 mg PO BEDTIME 12/21/16 [History] Cholecalciferol (Vitamin D3) [Vitamin D3] 2,000 unit PO DAILY 07/23/18 [History] Diclofenac Sodium [Voltaren 1% Gel] 4 g TOP QID PRN 07/23/18 [History] Multivitamin/Opth Areds 07/23/18 [History] Past Medical History HEENT History: Reports: Hard of Hearing, Impaired Vision Cardiovascular History: Reports: Blood Clots/VTE/DVT, High Cholesterol, Hypertension Gastrointestinal History: Reports: Diverticulosis, GERD Genitourinary History: Reports: BPH Endocrine/Metabolic History: Reports: Hypothyroidism Social & Family History - Tobacco Use Smoking Status *Q: Former Smoker Used Tobacco, but Quit: Yes Month/Year Tobacco Last Used: 1959 Second Hand Smoke Exposure: No - Caffeine Use Caffeine Use: Reports: Coffee - Recreational Drug Use Recreational Drug Use: No - Living Situation & Occupation Living situation: Reports: Occupation: Retired H&P Review of Systems - Review of Systems: Review Of Systems: See Below General: Reports: No Symptoms, Malaise, Weakness, Fatigue. Denies: Fever, Chills HEENT: Reports: No Symptoms. Denies: Headaches, Sore Throat Pulmonary: Reports: No Symptoms. Denies: Shortness of Breath, Wheezing, Pleuritic Chest Pain, Cough, Sputum Cardiovascular: Reports: Dyspnea on Exertion, Edema (bilateral but right much worse than left ). Denies: Chest Pain, Palpitations, Lightheadedness Gastrointestinal: Reports: No Symptoms. Denies: Abdominal Pain, Constipation, Diarrhea, Vomiting Genitourinary: Reports: Other (Nocturia ). Denies: Pain Musculoskeletal: Reports: Leg Pain, Joint Pain Skin: Reports: Bruising Psychiatric: Reports: No Symptoms. Denies: Confusion Neurological: Reports: No Symptoms, Difficulty Walking, Gait Disturbance Hematologic/Lymphatic: Reports: No Symptoms Immunologic: Reports: No Symptoms Exam - Exam Exam: See Below - Vital Signs Vital Signs: Last Vital Signs Temp 97.8 F 07/24/18 08:00 Pulse 121 H 07/24/18 08:24 Resp 20 07/24/18 08:00 BP 128/84 07/24/18 08:24 Pulse Ox 97 07/24/18 08:00 Weight: 190 lb 3.2 oz - Exam Quality Assessment: DVT Prophylaxis. No: Supplemental Oxygen General: Alert, Oriented (for the most part - occasionally confused ), Cooperative. No: Mild Distress HEENT: Conjunctiva Clear, EACs Clear, EOMI, Hearing Intact, Mucosa Moist & [place] , Nares Patent, Normal Nasal Septum, PERRLA Neck: Supple, Trachea Midline Lungs: Clear to Auscultation, Normal Respiratory Effort Cardiovascular: Irregular Rhythm. No: Regular Rate (varies ) GI/Abdominal Exam: Normal Bowel Sounds, Soft, Non-Tender, No Organomegaly, No Distention (Male) Exam: Deferred Rectal (Males) Exam: Deferred Back Exam: Normal Inspection, Full Range of Motion Extremities: Pedal Edema (1-2+), Other (Erythema from medial calf to groin) Peripheral Pulses: 0: Dorsalis Pedis (L), Dorsalis Pedis (R), 1+: Radial (L), Radial (R) Skin: Warm, Dry, Intact Neurological: Cranial Nerves Intact (Grossly ) Neuro Extensive - Mental Status: Alert, Normal Mood/Affect - Patient Data Lab Results Last 24 hrs: Laboratory Results - last 24 hr 07/23/18 07/23/18 07/23/18 Range/Units 16:20 16:20 16:20 WBC 5.79 (4.23-9.07) K/mm3 RBC 3.71 L (4.63-6.08) M/mm3 Hgb 12.1 L (13.7-17.5) gm/L Hct 37.2 L (40.1-51.0) % MCV 100.3 H (79.0-92.2) fl MCH 32.6 H (25.7-32.2) pg MCHC 32.5 (32.2-35.5) g/dl RDW Std Deviation 49.0 H (35.1-43.9) fL Plt Count 216 (163-337) K/mm3 MPV 7.9 L (9.4-12.3) fl Neut % (Auto) (34.0-67.9) % Lymph % (Auto) (21.8-53.1) % [place] % (Auto) (5.3-12.2) % Eos % (Auto) (0.8-7.0) Baso % (Auto) (0.1-1.2) % Neut # (Auto) (1.78-5.38) K/mm3 Lymph # (Auto) (1.32-3.57) K/mm3 [place] # (Auto) (0.30-0.82) K/mm3 Eos # (Auto) (0.04-0.54) K/mm3 Baso # (Auto) (0.01-0.08) K/mm3 Neutrophils % (Manual) 72 H (40-60) % Band Neutrophils % 0 (0-10) % Lymphocytes % (Manual) 16 L (20-40) % Atypical Lymphs % 0 % Monocytes % (Manual) 10 (2-10) % Eosinophils % (Manual) 1 (0.8-7.0) % Basophils % (Manual) 1 (0.2-1.2) Platelet Estimate Adequate Anisocytosis 1+ slight Macrocytosis 1+ slight Ovalocytes 1+ slight ESR (0-15) mm/hr PT 12.3 H (9.5-12.1) SECONDS INR 1.13 APTT 27 (24-31) SECONDS D-Dimer, Quantitative (0.19-0.50) mg/L Sodium 139 (136-145) mEq/L Potassium 4.4 (3.5-5.1) mEq/L Chloride 106 (98-107) mEq/L Carbon Dioxide 25 (21-32) mEq/L Anion Gap 12.4 (5-15) BUN 20 H (7-18) mg/dL Creatinine 1.1 (0.7-1.3) mg/dL Est Cr Clr Drug Dosing 51.34 mL/min Estimated GFR (MDRD) > 60 (>60) mL/min BUN/Creatinine Ratio 18.2 H (14-18) Glucose 114 (83-115) mg/dL Calcium 9.0 (8.5-10.1) mg/dL Magnesium 2.0 (1.8-2.4) mg/dl Total Bilirubin 0.5 (0.2-1.0) mg/dL AST 14 L (15-37) U/L ALT 27 (16-63) U/L Alkaline Phosphatase 75 (46-116) U/L CK-MB (CK-2) 1.4 (0-3.6) ng/ml Troponin I < 0.017 (0.00-0.056) ng/mL C-Reactive Protein 4.4 H* (<1.0) mg/dL NT-Pro-B Natriuret Pep (0-450) pg/mL Total Protein 6.5 (6.4-8.2) g/dl Albumin 2.7 L (3.4-5.0) g/dl Globulin 3.8 gm/dL Albumin/Globulin Ratio 0.7 L (1-2) Vitamin B12 (193-986) pg/ml Vitamin D 25-Hydroxy (30.0-100.0) ng/ml Folate (8.6-58.9) ng/mL TSH 3rd Generation (0.358-3.74) uIU/mL Urine Color (Yellow) Urine Appearance (Clear) Urine pH (5.0-8.0) Ur Specific [place] (1.005-1.030) Urine Protein (Negative) Urine Glucose (UA) (Negative) Urine Ketones (Negative) Urine Occult Blood (Negative) Urine Nitrite (Negative) Urine Bilirubin (Negative) Urine Urobilinogen (0.2-1.0) Ur Leukocyte Esterase (Negative) Urine RBC (0-5) /hpf Urine WBC (0-5) /hpf Ur Epithelial Cells (0-5) /hpf Urine Bacteria Urine Mucus 07/23/18 07/23/18 07/23/18 Range/Units 16:20 16:20 16:20 WBC (4.23-9.07) K/mm3 RBC (4.63-6.08) M/mm3 Hgb (13.7-17.5) gm/L Hct (40.1-51.0) % MCV (79.0-92.2) fl MCH (25.7-32.2) pg MCHC (32.2-35.5) g/dl RDW Std Deviation (35.1-43.9) fL Plt Count (163-337) K/mm3 MPV (9.4-12.3) fl Neut % (Auto) (34.0-67.9) % Lymph % (Auto) (21.8-53.1) % [place] % (Auto) (5.3-12.2) % Eos % (Auto) (0.8-7.0) Baso % (Auto) (0.1-1.2) % Neut # (Auto) (1.78-5.38) K/mm3 Lymph # (Auto) (1.32-3.57) K/mm3 [place] # (Auto) (0.30-0.82) K/mm3 Eos # (Auto) (0.04-0.54) K/mm3 Baso # (Auto) (0.01-0.08) K/mm3 Neutrophils % (Manual) (40-60) % Band Neutrophils % (0-10) % Lymphocytes % (Manual) (20-40) % Atypical Lymphs % % Monocytes % (Manual) (2-10) % Eosinophils % (Manual) (0.8-7.0) % Basophils % (Manual) (0.2-1.2) Platelet Estimate Anisocytosis Macrocytosis Ovalocytes ESR 18 H (0-15) mm/hr PT (9.5-12.1) SECONDS INR APTT (24-31) SECONDS D-Dimer, Quantitative 9.82 H (0.19-0.50) mg/L Sodium (136-145) mEq/L Potassium (3.5-5.1) mEq/L Chloride (98-107) mEq/L Carbon Dioxide (21-32) mEq/L Anion Gap (5-15) BUN (7-18) mg/dL Creatinine (0.7-1.3) mg/dL Est Cr Clr Drug Dosing mL/min Estimated GFR (MDRD) (>60) mL/min BUN/Creatinine Ratio (14-18) Glucose (83-115) mg/dL Calcium (8.5-10.1) mg/dL Magnesium (1.8-2.4) mg/dl Total Bilirubin (0.2-1.0) mg/dL AST (15-37) U/L ALT (16-63) U/L Alkaline Phosphatase (46-116) U/L CK-MB (CK-2) (0-3.6) ng/ml Troponin I (0.00-0.056) ng/mL C-Reactive Protein (<1.0) mg/dL NT-Pro-B Natriuret Pep 1789 H (0-450) pg/mL Total Protein (6.4-8.2) g/dl Albumin (3.4-5.0) g/dl Globulin gm/dL Albumin/Globulin Ratio (1-2) Vitamin B12 (193-986) pg/ml Vitamin D 25-Hydroxy (30.0-100.0) ng/ml Folate (8.6-58.9) ng/mL TSH 3rd Generation (0.358-3.74) uIU/mL Urine Color (Yellow) Urine Appearance (Clear) Urine pH (5.0-8.0) Ur Specific [place] (1.005-1.030) Urine Protein (Negative) Urine Glucose (UA) (Negative) Urine Ketones (Negative) Urine Occult Blood (Negative) Urine Nitrite (Negative) Urine Bilirubin (Negative) Urine Urobilinogen (0.2-1.0) Ur Leukocyte Esterase (Negative) Urine RBC (0-5) /hpf Urine WBC (0-5) /hpf Ur Epithelial Cells (0-5) /hpf Urine Bacteria Urine Mucus 07/23/18 07/23/18 07/23/18 Range/Units 16:20 16:34 19:06 WBC (4.23-9.07) K/mm3 RBC (4.63-6.08) M/mm3 Hgb (13.7-17.5) gm/L Hct (40.1-51.0) % MCV (79.0-92.2) fl MCH (25.7-32.2) pg MCHC (32.2-35.5) g/dl RDW Std Deviation (35.1-43.9) fL Plt Count (163-337) K/mm3 MPV (9.4-12.3) fl Neut % (Auto) (34.0-67.9) % Lymph % (Auto) (21.8-53.1) % [place] % (Auto) (5.3-12.2) % Eos % (Auto) (0.8-7.0) Baso % (Auto) (0.1-1.2) % Neut # (Auto) (1.78-5.38) K/mm3 Lymph # (Auto) (1.32-3.57) K/mm3 [place] # (Auto) (0.30-0.82) K/mm3 Eos # (Auto) (0.04-0.54) K/mm3 Baso # (Auto) (0.01-0.08) K/mm3 Neutrophils % (Manual) (40-60) % Band Neutrophils % (0-10) % Lymphocytes % (Manual) (20-40) % Atypical Lymphs % % Monocytes % (Manual) (2-10) % Eosinophils % (Manual) (0.8-7.0) % Basophils % (Manual) (0.2-1.2) Platelet Estimate Anisocytosis Macrocytosis Ovalocytes ESR (0-15) mm/hr PT (9.5-12.1) SECONDS INR APTT (24-31) SECONDS D-Dimer, Quantitative (0.19-0.50) mg/L Sodium (136-145) mEq/L Potassium (3.5-5.1) mEq/L Chloride (98-107) mEq/L Carbon Dioxide (21-32) mEq/L Anion Gap (5-15) BUN (7-18) mg/dL Creatinine (0.7-1.3) mg/dL Est Cr Clr Drug Dosing mL/min Estimated GFR (MDRD) (>60) mL/min BUN/Creatinine Ratio (14-18) Glucose (83-115) mg/dL Calcium (8.5-10.1) mg/dL Magnesium (1.8-2.4) mg/dl Total Bilirubin (0.2-1.0) mg/dL AST (15-37) U/L ALT (16-63) U/L Alkaline Phosphatase (46-116) U/L CK-MB (CK-2) (0-3.6) ng/ml Troponin I (0.00-0.056) ng/mL C-Reactive Protein (<1.0) mg/dL NT-Pro-B Natriuret Pep (0-450) pg/mL Total Protein (6.4-8.2) g/dl Albumin (3.4-5.0) g/dl Globulin gm/dL Albumin/Globulin Ratio (1-2) Vitamin B12 509 (193-986) pg/ml Vitamin D 25-Hydroxy 38.5 (30.0-100.0) ng/ml Folate 27.2 (8.6-58.9) ng/mL TSH 3rd Generation 1.793 (0.358-3.74) uIU/mL Urine Color (Yellow) Urine Appearance (Clear) Urine pH (5.0-8.0) Ur Specific [place] (1.005-1.030) Urine Protein (Negative) Urine Glucose (UA) (Negative) Urine Ketones (Negative) Urine Occult Blood (Negative) Urine Nitrite (Negative) Urine Bilirubin (Negative) Urine Urobilinogen (0.2-1.0) Ur Leukocyte Esterase (Negative) Urine RBC (0-5) /hpf Urine WBC (0-5) /hpf Ur Epithelial Cells (0-5) /hpf Urine Bacteria Urine Mucus 07/23/18 07/24/18 07/24/18 Range/Units 22:18 04:35 04:35 WBC 4.26 (4.23-9.07) K/mm3 RBC 3.47 L (4.63-6.08) M/mm3 Hgb 11.1 L (13.7-17.5) gm/L Hct 34.7 L (40.1-51.0) % MCV 100.0 H (79.0-92.2) fl MCH 32.0 (25.7-32.2) pg MCHC 32.0 L (32.2-35.5) g/dl RDW Std Deviation 48.0 H (35.1-43.9) fL Plt Count 196 (163-337) K/mm3 MPV 7.7 L (9.4-12.3) fl Neut % (Auto) 63.4 (34.0-67.9) % Lymph % (Auto) 20.0 L (21.8-53.1) % [place] % (Auto) 12.4 H (5.3-12.2) % Eos % (Auto) 3.5 (0.8-7.0) Baso % (Auto) 0.5 (0.1-1.2) % Neut # (Auto) 2.70 (1.78-5.38) K/mm3 Lymph # (Auto) 0.85 L (1.32-3.57) K/mm3 [place] # (Auto) 0.53 (0.30-0.82) K/mm3 Eos # (Auto) 0.15 (0.04-0.54) K/mm3 Baso # (Auto) 0.02 (0.01-0.08) K/mm3 Neutrophils % (Manual) (40-60) % Band Neutrophils % (0-10) % Lymphocytes % (Manual) (20-40) % Atypical Lymphs % % Monocytes % (Manual) (2-10) % Eosinophils % (Manual) (0.8-7.0) % Basophils % (Manual) (0.2-1.2) Platelet Estimate Anisocytosis Macrocytosis Ovalocytes ESR (0-15) mm/hr PT (9.5-12.1) SECONDS INR APTT (24-31) SECONDS D-Dimer, Quantitative (0.19-0.50) mg/L Sodium 139 (136-145) mEq/L Potassium 4.0 (3.5-5.1) mEq/L Chloride 108 H (98-107) mEq/L Carbon Dioxide 24 (21-32) mEq/L Anion Gap 11.0 (5-15) BUN 18 (7-18) mg/dL Creatinine 1.0 (0.7-1.3) mg/dL Est Cr Clr Drug Dosing 56.48 mL/min Estimated GFR (MDRD) > 60 (>60) mL/min BUN/Creatinine Ratio 18.0 (14-18) Glucose 97 (83-115) mg/dL Calcium 8.4 L (8.5-10.1) mg/dL Magnesium 1.8 (1.8-2.4) mg/dl Total Bilirubin (0.2-1.0) mg/dL AST (15-37) U/L ALT (16-63) U/L Alkaline Phosphatase (46-116) U/L CK-MB (CK-2) (0-3.6) ng/ml Troponin I (0.00-0.056) ng/mL C-Reactive Protein (<1.0) mg/dL NT-Pro-B Natriuret Pep (0-450) pg/mL Total Protein (6.4-8.2) g/dl Albumin (3.4-5.0) g/dl Globulin gm/dL Albumin/Globulin Ratio (1-2) Vitamin B12 (193-986) pg/ml Vitamin D 25-Hydroxy (30.0-100.0) ng/ml Folate (8.6-58.9) ng/mL TSH 3rd Generation (0.358-3.74) uIU/mL Urine Color Yellow (Yellow) Urine Appearance Turbid H (Clear) Urine pH 6.0 (5.0-8.0) Ur Specific [place] 1.025 (1.005-1.030) Urine Protein 2+ H (Negative) Urine Glucose (UA) Negative (Negative) Urine Ketones Negative (Negative) Urine Occult Blood 2+ H (Negative) Urine Nitrite Negative (Negative) Urine Bilirubin Negative (Negative) Urine Urobilinogen 0.2 (0.2-1.0) Ur Leukocyte Esterase 3+ H (Negative) Urine RBC See comment (0-5) /hpf Urine WBC Too numerous to cnt H (0-5) /hpf Ur Epithelial Cells Not seen (0-5) /hpf Urine Bacteria Not Reportable Urine Mucus Not Reportable Result Diagrams: 07/24/18 04:35 07/24/18 04:35 - Problem List (1) Atrial flutter with rapid ventricular response SNOMED Code(s): 5240319 ICD Code: I48.92 - UNSPECIFIED ATRIAL FLUTTER Status: Acute Priority: High Current Visit: Yes (2) Dvt femoral (deep venous thrombosis) SNOMED Code(s): 747787774 ICD Code: I82.419 - ACUTE EMBOLISM AND THROMBOSIS OF UNSPECIFIED FEMORAL VEIN Status: Acute Priority: High Current Visit: Yes Qualifiers: Chronicity: acute Laterality: right Qualified Code(s): I82.411 - Acute embolism and thrombosis of right femoral vein (3) Venous insufficiency of both lower extremities SNOMED Code(s): 483156130 ICD Code: I87.2 - VENOUS INSUFFICIENCY (CHRONIC) (PERIPHERAL) Status: Acute Priority: High Current Visit: Yes (4) UTI (urinary tract infection) SNOMED Code(s): 97053713 ICD Code: N39.0 - URINARY TRACT INFECTION, SITE NOT SPECIFIED Status: Acute Priority: High Current Visit: Yes Qualifiers: Urinary tract infection type: acute cystitis Hematuria presence: without hematuria Qualified Code(s): N30.00 - Acute cystitis without hematuria Problem List Initiated/Reviewed/Updated: Yes Orders Last 24hrs: Active Orders 24 hr Category Date Time Status Admission Status [Patient Status] [ADT] Routine ADT 07/23/18 18:27 Active Antiembolic Devices [RC] DAILY Care 07/24/18 00:04 Active Cardiac Monitoring [RC] CONTINUOUS Care 07/23/18 18:22 Active Communication Order [RC] 0800 Care 07/24/18 08:00 Active Height and Weight [RC] 04 Care 07/23/18 18:21 Active Intake and Output [RC] 04,16 Care 07/23/18 18:22 Active Oxygen Therapy [RC] PRN Care 07/23/18 18:21 Active RT Aerosol Therapy [RC] ASDIRECTED Care 07/23/18 18:24 Active Up With Assistance [RC] ASDIRECTED Care 07/23/18 18:21 Active Up ad Jannette [RC] ASDIRECTED Care 07/23/18 18:21 Active VTE/DVT Education [RC] BID Care 07/23/18 18:21 Active Vital Signs [RC] Q4HR Care 07/23/18 18:21 Active Consult to Case Management/Design Maker [CONS] Cons 07/23/18 18:21 Active Routine Consult to Spiritual Care [CONS] Routine Cons 07/23/18 18:21 Active OT Evaluation and Treatment [CONS] Routine Cons 07/23/18 18:21 Active PT Evaluation and Treatment [CONS] Routine Cons 07/23/18 18:21 Active Heart Healthy Diet [DIET] Diet 07/23/18 Dinner Active Echo Comp wo Cont [US] Stat Exams 07/25/18 07:00 Ordered BASIC METABOLIC PANEL,BMP [CHEM] AM Lab 07/25/18 05:11 Ordered BASIC METABOLIC PANEL,BMP [CHEM] AM Lab 07/26/18 05:11 Ordered BASIC METABOLIC PANEL,BMP [CHEM] AM Lab 07/27/18 05:11 Ordered MAGNESIUM [CHEM] AM Lab 07/25/18 05:11 Ordered MAGNESIUM [CHEM] AM Lab 07/26/18 05:11 Ordered MAGNESIUM [CHEM] AM Lab 07/27/18 05:11 Ordered Acetaminophen [Tylenol] Med 07/23/18 18:21 Active 650 mg PO Q4H PRN Acetaminophen/HYDROcodone [[place] 325-5 MG] Med 07/23/18 18:21 Active 1 tab PO Q4H PRN Albuterol/Ipratropium [DuoNeb 3.0-0.5 MG/3 ML] Med 07/23/18 18:21 Active 3 ml NEB Q4H PRN Apixaban [Eliquis] Med 07/24/18 09:00 Active 10 mg PO BID Apixaban [Eliquis] Med 07/31/18 09:00 Active 5 mg PO BID Bisacodyl [Dulcolax] Med 07/23/18 18:21 Active 5 mg PO DAILY PRN Cholecalciferol (Vitamin D3) [Vitamin D3] Med 07/24/18 09:00 Active 2,000 units PO DAILY Diclofenac Sodium [Voltaren 1% Gel] Med 07/24/18 00:45 Active 4 gm TOP QID PRN Diltiazem 125 mg Med 07/23/18 18:15 Active Sodium Chloride 0.9% [Normal Saline] 100 ml IV ASDIRECTED Docusate Sodium [Colace] Med 07/23/18 18:21 Active 100 mg PO BID PRN Docusate Sodium/Sennosides [Senna Plus] Med 07/23/18 18:21 Active 1 tab PO BID PRN Finasteride [Proscar] Med 07/24/18 09:00 Active 5 mg PO DAILY Fish Oil/[place]-3 Fatty Acids [Fish Oil] Med 07/24/18 09:00 Active 1 gm PO DAILY Furosemide [Lasix] Med 07/24/18 06:00 Active 10 mg IVPUSH BIDDIURETIC HYDROmorphone [Dilaudid] Med 07/23/18 18:21 Active 0.25 mg IVPUSH Q2H PRN LORazepam [Ativan] Med 07/23/18 18:20 Active 2 mg IVPUSH Q4H PRN Levothyroxine [Synthroid] Med 07/24/18 06:00 Active 88 mcg PO ACBREAKFAST Metoprolol Tartrate [Lopressor] Med 07/23/18 18:20 Active 5 mg IVPUSH Q4H PRN Metoprolol Tartrate [Lopressor] Med 07/24/18 21:00 Active 50 mg PO Q12H Multivitamins,Therapeutic [Thera] Med 07/24/18 09:00 Active 1 each PO DAILY Ondansetron [Zofran] Med 07/23/18 18:21 Active 4 mg IV Q6H PRN Pharmacy to Dose - Magnesium R [Pharmacy to Dose - Med 07/23/18 18:30 Active Magnesium Replacement] 0 dose .XX ASDIRECTED PRN Pharmacy to Dose - Potassium R [Pharmacy to Dose - Med 07/23/18 18:30 Active Potassium Replacement] 0 dose .XX ASDIRECTED PRN Polyethylene Glycol 3350 [MiraLAX] Med 07/23/18 18:21 Active 17 gm PO DAILY PRN Rosuvastatin [Crestor] Med 07/24/18 21:00 Active 10 mg PO BEDTIME Temazepam [Restoril] Med 07/23/18 18:21 Active 7.5 mg PO BEDTIME PRN Terazosin [Hytrin] Med 07/23/18 21:00 Active 4 mg PO BEDTIME hydrALAZINE [Apresoline] Med 07/23/18 18:20 Active 10 mg IVPUSH Q4H PRN hydroCHLOROthiazide Med 07/24/18 06:00 Active 12.5 mg PO BIDDIURETIC JAREN Hose [Antiembolic Hose] [OM.PC] Routine Oth 07/24/18 07:00 Ordered Code Status [Resuscitation Status] Routine Resus Stat 07/24/18 00:01 Ordered Medication Orders Acetaminophen (Tylenol) 650 mg PO Q4H PRN PRN Reason: Pain (Mild 1-3)/fever Hydrocodone Bitart/Acetaminophen ([place] 325-5 Mg) 1 tab PO Q4H PRN PRN Reason: Pain (moderate 4-6) Albuterol/Ipratropium (Duoneb 3.0-0.5 Mg/3 Ml) 3 ml NEB Q4H PRN PRN Reason: Shortness Of Breath/wheezing Apixaban (Eliquis) 10 mg PO BID [facility] Stop: 07/30/18 21:01 Last Admin: 07/24/18 08:24 Dose: 10 mg Apixaban (Eliquis) 5 mg PO BID [facility] Bisacodyl (Dulcolax) 5 mg PO DAILY PRN PRN Reason: Constipation Cholecalciferol (Vitamin D3) 2,000 units PO DAILY [facility] Last Admin: 07/24/18 08:24 Dose: 2,000 units Diclofenac Sodium (Voltaren 1% Gel) 4 gm TOP QID PRN PRN Reason: Pain Docusate Sodium (Colace) 100 mg PO BID PRN PRN Reason: Constipation Finasteride (Proscar) 5 mg PO DAILY [facility] Last Admin: 07/24/18 08:24 Dose: 5 mg Fish Oil (Fish Oil) 1 gm PO DAILY [facility] Last Admin: 07/24/18 08:24 Dose: 1 gm Furosemide (Lasix) 10 mg IVPUSH BIDDIURETIC [facility] Stop: 07/25/18 14:01 Last Admin: 07/24/18 05:38 Dose: 10 mg Hydralazine HCl (Apresoline) 10 mg IVPUSH Q4H PRN PRN Reason: Hypertension Hydrochlorothiazide (Hydrochlorothiazide) 12.5 mg PO BIDDIURETIC [facility] Last Admin: 07/24/18 05:38 Dose: 12.5 mg Hydromorphone HCl (Dilaudid) 0.25 mg IVPUSH Q2H PRN PRN Reason: Pain (severe 7-10) Diltiazem HCl 125 mg/ Sodium (Chloride) 125 mls @ 15 mls/hr IV ASDIRECTED [facility] Levothyroxine Sodium (Synthroid) 88 mcg PO ACBREAKFAST [facility] Last Admin: 07/24/18 05:38 Dose: 88 mcg Lorazepam (Ativan) 2 mg IVPUSH Q4H PRN PRN Reason: Seizures Magnesium Sulfate (Pharmacy To Dose - Magnesium Replacement) 0 dose .XX ASDIRECTED PRN PRN Reason: RX TO WATCH MAG Metoprolol Tartrate (Lopressor) 5 mg IVPUSH Q4H PRN PRN Reason: Tachycardia Last Admin: 07/24/18 07:03 Dose: 5 mg Metoprolol Tartrate (Lopressor) 50 mg PO Q12H [facility] Multivitamins (Thera) 1 each PO DAILY [facility] Last Admin: 07/24/18 08:24 Dose: 1 each Ondansetron HCl (Zofran) 4 mg IV Q6H PRN PRN Reason: Nausea/Vomiting Last Admin: 07/24/18 08:24 Dose: 4 mg Polyethylene Glycol (Miralax) 17 gm PO DAILY PRN PRN Reason: Constipation Potassium Chloride (Pharmacy To Dose - Potassium Replacement) 0 dose .XX ASDIRECTED PRN PRN Reason: RX TO WATCH K Rosuvastatin Calcium (Crestor) 10 mg PO BEDTIME KRISSY Senna/Docusate Sodium (Senna Plus) 1 tab PO BID PRN PRN Reason: Constipation Temazepam (Restoril) 7.5 mg PO BEDTIME PRN PRN Reason: Sleep Terazosin HCl (Hytrin) 4 mg PO BEDTIME [facility] Last Admin: 07/23/18 21:25 Dose: Not Given Assessment/Plan Comment:: I/P: Acute: A-flutter with RVR -HR noted to be 142 in ED -12-lead EKG notes A-flutter with incomplete LBBB -Cardizem IVP given with no change -Started on cardizem drip - discontinued overnight 2/2 variable blood pressures; restarted today -180mg cardizem AM of 07/24/18 - discontinue -Metoprolol 50mg BID PO starting today -HR 80's while sitting but up to 120's with activity -Troponin negative -Pro-BNP 1789 -Echo ordered today -Eliquis as below -TSH WNL Elevated BNP -? 2/2 above -Pro-BNP 1789 -Edema bilaterally -Echo as above -Start BID HCTZ -Start BID Lasix as ordered DVT -Noted pain and swelling of right leg -Reports Hx/o DVT- he believes right leg as well 2+ years ago; was reportedly on blood thinners but discontinued -D-dimer 9.82 -Physical exam shows erythema from medial calf up into groin; right sided leg swelling -1mg/kg Lovenox given in ED -Right LE US shows thrombus within the right common femoral vein, superficial femoral vein, and popliteal veins. Also lower externally subcutaneous edema. -Oxygen saturations have remained high -Start Eliquis 10mg BID -Start Naprosyn 325mg Q12H -Start Zosyn - empiric treatment for thrombophlebitis -No leukocytosis -Dr. Monroy discussed case briefly with Dr. Pantoja, general surgeon, who did examine the leg and was not concerned. UTI -Reports increased frequency and nocturia -UA: Turbid with 2+ protein, 2+ occult blood, 3+ leuk esterase, WBCs too numerous to count. -UC ordered -Zosyn as above -IV fluids as ordered Chronic: Hx/o DVT HLD HTN Diverticulosis GERD BPH Hypothyroidism Plan: Admit to ICU Other orders as above Home medications as ordered Routine AM labs PT/OT CM/SW Spiritual care consult DVT prophylaxis: Eliquis Code status: Full code; PCP: Dr. Arteaga
[2018-07-24] MEDS ORDERED: Naproxen 500 MG Tab PO ONE (11:34)
[2018-07-24] MEDS ORDERED: Piperacillin/Tazobactam 4.5 GM in Sodium Chloride 0.9% 100 ML IV ONE (12:00)
[2018-07-24] MEDS ORDERED: Midodrine 5 MG Tab PO PRN (16:08)
[2018-07-24] MEDS: Piperacillin/Tazobactam 4.5 GM in Sodium Chloride 0.9% 100 ML IV SCH (20:38)
[2018-07-24] MEDS: Saccharomyces Boulardii (Probiotic) 250 MG Cap PO SCH (20:42)
[2018-07-24] MEDS: Rosuvastatin 10 MG Tab PO SCH (20:42)
[2018-07-24] MEDS: Famotidine 20 MG Tab PO SCH (20:43)
[2018-07-25] MEDS: Piperacillin/Tazobactam 4.5 GM in Sodium Chloride 0.9% 100 ML IV SCH ×3 (03:56→20:30)
[2018-07-25] MEDS: Hydrochlorothiazide 12.5 MG Cap PO SCH ×2 (05:21→15:00)
[2018-07-25] MEDS: Levothyroxine 88 MCG Tab PO SCH (05:21)
[2018-07-25] MEDS: Furosemide 20 MG/2 ML VIAL IVPUSH SCH ×2 (05:44→15:00)
[2018-07-25 06:41] LABS: VITAMIN D,25-HYDROXY 35.4 ng/ml (30.0-100.0)
[2018-07-25] MEDS: Saccharomyces Boulardii (Probiotic) 250 MG Cap PO SCH ×2 (08:16→20:31)
[2018-07-25] MEDS: Apixaban 5 MG Tab PO SCH ×2 (08:17→20:31)
[2018-07-25] MEDS: Finasteride 5 MG Tab PO SCH (08:17)
[2018-07-25] MEDS: Cholecalciferol (Vitamin D3) 1,000 Unit Tab PO SCH (08:17)
[2018-07-25] MEDS: Multivitamins,Therapeutic Tab PO SCH (08:18)
[2018-07-25] MEDS: Metoprolol Tartrate 25 MG Tab PO SCH ×2 (08:18→20:30)
[2018-07-25] MEDS: Famotidine 20 MG Tab PO SCH ×2 (08:18→20:31)
[2018-07-25] MEDS: Fish Oil/Omega-3 Fatty Acids 1 Gm Cap PO SCH (08:19)
[2018-07-25] MEDS ORDERED: Diltiazem 240 MG Cap.ER PO SCH (09:00)
--- NOTE | 2018-07-25 09:35 | PCM.PN ---
- General Info Date of Service: 07/25/18 Admission Dx/Problem (Free Text): Admission Diagnosis/Problem Admission Diagnosis/Problem Atrial flutter with rapid ventricular response Subjective Update: Follow Up Functional Status: Reports: Pain Controlled, Tolerating Diet, Ambulating, Urinating. Denies: New Symptoms - Review of Systems General: Denies: Fever, Weakness, Fatigue, Malaise, Chills HEENT: Reports: No Symptoms Pulmonary: Denies: Shortness of Breath, Pleuritic Chest Pain, Cough Cardiovascular: Denies: Chest Pain, Palpitations, Dyspnea on Exertion, Edema, Lightheadedness Gastrointestinal: Denies: Abdominal Pain, Nausea, Vomiting Genitourinary: Reports: No Symptoms Musculoskeletal: Reports: No Symptoms Skin: Denies: Cyanosis, Jaundice, Mottled, Pallor, Diaphoresis, Bruising Neurological: Denies: Dizziness, Headache, Numbness, Paresthesia, Seizure, Syncope, Difficulty Walking, Weakness Psychiatric: Denies: Depression, Mood Lability, Anxiety, Agitation, Hallucinations Systems Review Comment:: No overnight or acute issues. His heart rate overall is controlled except this morning. He is in the 120s-130s before his medications but after he received his 240 mg of po Cardizem and 50 mg of po Metoprolol, he was in the 60-70s and w / activity he were fluctuating bet upper 80s-as high as 110 w/o symptoms. His leg erythema and edema seem to be better as well. He denies any complaints. - Patient Data Vitals - Most Recent: Last Vital Signs Temp 36.6 C 07/25/18 08:00 Pulse 136 H 07/25/18 08:18 Resp 17 07/25/18 08:00 BP 128/86 07/25/18 08:18 Pulse Ox 96 07/25/18 08:00 Weight - Most Recent: 86.137 kg I&O - Last 24 Hours: Intake & Output 07/24/18 07/25/18 07/25/18 22:59 06:59 14:59 Intake Total 548 397 Output Total 1125 150 Balance -577 247 Lab Results Last 24 Hours: Laboratory Results - last 24 hr 07/25/18 07/25/18 07/25/18 Range/Units 05:15 05:15 05:15 WBC 4.66 (4.23-9.07) K/mm3 RBC 3.54 L (4.63-6.08) M/mm3 Hgb 11.3 L (13.7-17.5) gm/L Hct 35.6 L (40.1-51.0) % MCV 100.6 H (79.0-92.2) fl MCH 31.9 (25.7-32.2) pg MCHC 31.7 L (32.2-35.5) g/dl RDW Std Deviation 49.1 H (35.1-43.9) fL Plt Count 214 (163-337) K/mm3 MPV 7.8 L (9.4-12.3) fl Neut % (Auto) 72.2 H (34.0-67.9) % Lymph % (Auto) 13.1 L (21.8-53.1) % Ellis % (Auto) 10.9 (5.3-12.2) % Eos % (Auto) 3.2 (0.8-7.0) Baso % (Auto) 0.4 (0.1-1.2) % Neut # (Auto) 3.36 (1.78-5.38) K/mm3 Lymph # (Auto) 0.61 L (1.32-3.57) K/mm3 Ellis # (Auto) 0.51 (0.30-0.82) K/mm3 Eos # (Auto) 0.15 (0.04-0.54) K/mm3 Baso # (Auto) 0.02 (0.01-0.08) K/mm3 Sodium 140 (136-145) mEq/L Potassium 4.2 (3.5-5.1) mEq/L Chloride 108 H (98-107) mEq/L Carbon Dioxide 26 (21-32) mEq/L Anion Gap 10.2 (5-15) BUN 22 H (7-18) mg/dL Creatinine 1.2 (0.7-1.3) mg/dL Est Cr Clr Drug Dosing 47.06 mL/min Estimated GFR (MDRD) 57 (>60) mL/min BUN/Creatinine Ratio 18.3 H (14-18) Glucose 98 (83-115) mg/dL Calcium 9.0 (8.5-10.1) mg/dL Magnesium 1.9 (1.8-2.4) mg/dl C-Reactive Protein 3.5 H* (<1.0) mg/dL NT-Pro-B Natriuret Pep 1884 H (0-450) pg/mL Vitamin B12 (193-986) pg/ml Vitamin D 25-Hydroxy 35.4 (30.0-100.0) ng/ml Folate (8.6-58.9) ng/mL 07/25/18 Range/Units 05:15 WBC (4.23-9.07) K/mm3 RBC (4.63-6.08) M/mm3 Hgb (13.7-17.5) gm/L Hct (40.1-51.0) % MCV (79.0-92.2) fl MCH (25.7-32.2) pg MCHC (32.2-35.5) g/dl RDW Std Deviation (35.1-43.9) fL Plt Count (163-337) K/mm3 MPV (9.4-12.3) fl Neut % (Auto) (34.0-67.9) % Lymph % (Auto) (21.8-53.1) % Ellis % (Auto) (5.3-12.2) % Eos % (Auto) (0.8-7.0) Baso % (Auto) (0.1-1.2) % Neut # (Auto) (1.78-5.38) K/mm3 Lymph # (Auto) (1.32-3.57) K/mm3 Ellis # (Auto) (0.30-0.82) K/mm3 Eos # (Auto) (0.04-0.54) K/mm3 Baso # (Auto) (0.01-0.08) K/mm3 Sodium (136-145) mEq/L Potassium (3.5-5.1) mEq/L Chloride (98-107) mEq/L Carbon Dioxide (21-32) mEq/L Anion Gap (5-15) BUN (7-18) mg/dL Creatinine (0.7-1.3) mg/dL Est Cr Clr Drug Dosing mL/min Estimated GFR (MDRD) (>60) mL/min BUN/Creatinine Ratio (14-18) Glucose (83-115) mg/dL Calcium (8.5-10.1) mg/dL Magnesium (1.8-2.4) mg/dl C-Reactive Protein (<1.0) mg/dL NT-Pro-B Natriuret Pep (0-450) pg/mL Vitamin B12 400 (193-986) pg/ml Vitamin D 25-Hydroxy (30.0-100.0) ng/ml Folate 29.7 (8.6-58.9) ng/mL [place] Results Last 24 Hours: Microbiology 07/23/18 22:18 Urine Culture - Preliminary Urine, Clean Catch Gram Positive Coccobacillus Med Orders - Current: Current Medications Acetaminophen (Tylenol) 650 mg PO Q4H PRN PRN Reason: Pain (Mild 1-3)/fever Hydrocodone Bitart/Acetaminophen ([place] 325-5 Mg) 1 tab PO Q4H PRN PRN Reason: Pain (moderate 4-6) Albuterol/Ipratropium (Duoneb 3.0-0.5 Mg/3 Ml) 3 ml NEB Q4H PRN PRN Reason: Shortness Of Breath/wheezing Apixaban (Eliquis) 10 mg PO BID [facility] Stop: 07/30/18 21:01 Last Admin: 07/25/18 08:17 Dose: 10 mg Apixaban (Eliquis) 5 mg PO BID [facility] Bisacodyl (Dulcolax) 5 mg PO DAILY PRN PRN Reason: Constipation Cholecalciferol (Vitamin D3) 2,000 units PO DAILY [facility] Last Admin: 07/25/18 08:17 Dose: 2,000 units Diclofenac Sodium (Voltaren 1% Gel) 4 gm TOP QID PRN PRN Reason: Pain Diltiazem HCl (Dilacor Xr) 240 mg PO DAILY [facility] Last Admin: 07/25/18 08:18 Dose: 240 mg Docusate Sodium (Colace) 100 mg PO BID PRN PRN Reason: Constipation Famotidine (Pepcid) 20 mg PO BID [facility] Last Admin: 07/25/18 08:18 Dose: 20 mg Finasteride (Proscar) 5 mg PO DAILY [facility] Last Admin: 07/25/18 08:17 Dose: 5 mg Fish Oil (Fish Oil) 1 gm PO DAILY [facility] Last Admin: 07/25/18 08:19 Dose: 1 gm Furosemide (Lasix) 10 mg IVPUSH BIDDIURETIC [facility] Stop: 07/25/18 14:01 Last Admin: 07/25/18 05:44 Dose: 10 mg Hydralazine HCl (Apresoline) 10 mg IVPUSH Q4H PRN PRN Reason: Hypertension Hydrochlorothiazide (Hydrochlorothiazide) 12.5 mg PO BIDDIURETIC [facility] Last Admin: 07/25/18 05:21 Dose: 12.5 mg Hydromorphone HCl (Dilaudid) 0.25 mg IVPUSH Q2H PRN PRN Reason: Pain (severe 7-10) Diltiazem HCl 125 mg/ Sodium (Chloride) 125 mls @ 15 mls/hr IV ASDIRECTED [facility] Last Infusion: 07/24/18 14:00 Dose: 0 mg/hr, 0 mls/hr Piperacillin Sod/Tazobactam (Sod 4.5 gm/ Sodium Chloride) 100 mls @ 25 mls/hr IV Q8H [facility] Last Admin: 07/25/18 03:56 Dose: 25 mls/hr Levothyroxine Sodium (Synthroid) 88 mcg PO ACBREAKFAST [facility] Last Admin: 07/25/18 05:21 Dose: 88 mcg Lorazepam (Ativan) 2 mg IVPUSH Q4H PRN PRN Reason: Seizures Magnesium Sulfate (Pharmacy To Dose - Magnesium Replacement) 0 dose .XX ASDIRECTED PRN PRN Reason: RX TO WATCH MAG Metoprolol Tartrate (Lopressor) 5 mg IVPUSH Q4H PRN PRN Reason: Tachycardia Last Admin: 07/24/18 07:03 Dose: 5 mg Metoprolol Tartrate (Lopressor) 50 mg PO Q12H [facility] Last Admin: 07/25/18 08:18 Dose: 50 mg Midodrine (Midodrine) 5 mg PO TIDAC PRN PRN Reason: Hypotension Multivitamins (Thera) 1 each PO DAILY [facility] Last Admin: 07/25/18 08:18 Dose: 1 each Naproxen (Naprosyn) 375 mg PO Q12HR [facility] Last Admin: 07/25/18 08:17 Dose: 375 mg Ondansetron HCl (Zofran) 4 mg IV Q6H PRN PRN Reason: Nausea/Vomiting Last Admin: 07/24/18 08:24 Dose: 4 mg Polyethylene Glycol (Miralax) 17 gm PO DAILY PRN PRN Reason: Constipation Potassium Chloride (Pharmacy To Dose - Potassium Replacement) 0 dose .XX ASDIRECTED PRN PRN Reason: RX TO WATCH K Rosuvastatin Calcium (Crestor) 10 mg PO BEDTIME [facility] Last Admin: 07/24/18 20:42 Dose: 10 mg Saccharomyces Boulardii (Florastor) 500 mg PO BID [facility] Last Admin: 07/25/18 08:16 Dose: 500 mg Senna/Docusate Sodium (Senna Plus) 1 tab PO BID PRN PRN Reason: Constipation Temazepam (Restoril) 7.5 mg PO BEDTIME PRN PRN Reason: Sleep Terazosin HCl (Hytrin) 4 mg PO BEDTIME [facility] Last Admin: 07/24/18 20:43 Dose: Not Given Discontinued Medications Diltiazem HCl (Cardizem) 10 mg IVPUSH ONETIME ONE Stop: 07/23/18 16:19 Last Admin: 07/23/18 16:37 Dose: 10 mg Diltiazem HCl (Cardizem) 10 mg IVPUSH ONETIME ONE Stop: 07/23/18 17:07 Last Admin: 07/23/18 17:15 Dose: 10 mg Diltiazem HCl (Cardizem Cd) 180 mg PO DAILY [facility] Last Admin: 07/24/18 09:11 Dose: 180 mg Enoxaparin Sodium (Lovenox) 90 mg SUBCUT ONETIME ONE Stop: 07/23/18 16:32 Last Admin: 07/23/18 16:50 Dose: 90 mg Nicardipine HCl 25 mg/ Sodium (Chloride) 260 mls @ 104 mls/hr IV ASDIRECTED [facility] Sodium Chloride (Normal Saline) 1,000 mls @ 75 mls/hr IV ASDIRECTED [facility] Last Admin: 07/24/18 05:38 Dose: 75 mls/hr Diltiazem HCl 125 mg/ Sodium (Chloride) 125 mls @ 10 mls/hr IV ASDIRECTED [facility] Last Infusion: 07/23/18 20:15 Dose: 0 mg/hr, 0 mls/hr Piperacillin Sod/Tazobactam (Sod 4.5 gm/ Sodium Chloride) 100 mls @ 200 mls/hr IV ONETIME ONE Stop: 07/24/18 12:29 Last Admin: 07/24/18 12:31 Dose: 200 mls/hr Metoprolol Tartrate (Lopressor) 25 mg PO Q12H [facility] Last Admin: 07/24/18 08:24 Dose: 25 mg Midodrine (Midodrine) 5 mg PO NOW STA Stop: 07/23/18 21:36 Last Admin: 07/24/18 00:31 Dose: Not Given Naproxen (Naprosyn) 500 mg PO ONETIME ONE Stop: 07/24/18 11:35 Last Admin: 07/24/18 12:30 Dose: 500 mg Non-Formulary Medication (Diclofenac Sodium [Voltaren 1% Gel]) 4 g TOP QID PRN PRN Reason: Pain - Exam General: Alert, Cooperative, No Acute Distress HEENT: Pupils Equal, Pupils Reactive, EOMI, Mucous Membr. Moist/Olean Neck: Supple Lungs: Clear to Auscultation, Normal Respiratory Effort Cardiovascular: Irregular Rhythm GI/Abdominal Exam: Normal Bowel Sounds, Soft, Non-Tender, No Organomegaly, No Distention, No Abnormal Bruit (Male) Exam: Deferred Back Exam: Normal Inspection, Decreased Range of Motion Extremities: Normal Range of Motion, Non-Tender, Normal Capillary Refill (left lower extremity), Pedal Edema (right lower extremity), Limited Range of Motion, Increased Warmth, Redness (right lower extremity but improved). No: Normal Inspection Peripheral Pulses: 1+: Posterior Tibial (R), 2+: Posterior Tibial (L), Dorsalis Pedis (L) Skin: Warm, Dry, Intact Neurological: No New Focal Deficit Psy/Mental Status: Alert, Normal Affect, Normal Mood - Problem List Review Problem List Initiated/Reviewed/Updated: Yes - My Orders Last 24 Hours: My Active Orders 07/24/18 09:00 Apixaban [Eliquis] 10 mg PO BID Cholecalciferol (Vitamin D3) [Vitamin D3] 2,000 units PO DAILY Finasteride [Proscar] 5 mg PO DAILY Fish Oil/Coulter-3 Fatty Acids [Fish Oil] 1 gm PO DAILY Multivitamins,Therapeutic [Thera] 1 each PO DAILY 07/24/18 16:08 Midodrine 5 mg PO TIDAC PRN 07/24/18 20:00 Piperacillin/Tazobactam [Piperacil-Tazobact] 4.5 gm Sodium Chloride 0.9% [ Normal Saline] 100 ml IV Q8H 07/24/18 21:00 Famotidine [Pepcid] 20 mg PO BID Metoprolol Tartrate [Lopressor] 50 mg PO Q12H Naproxen [Naprosyn] 375 mg PO Q12HR Rosuvastatin [Crestor] 10 mg PO BEDTIME Saccharomyces Boulardii [Florastor] 500 mg PO BID 07/25/18 09:00 Diltiazem [Dilacor XR] 240 mg PO DAILY 07/25/18 09:30 Patient Status [ADT] Routine 07/25/18 Lunch Fluid Restriction [DIET] 07/26/18 05:11 BASIC METABOLIC PANEL,BMP [CHEM] AM MAGNESIUM [CHEM] AM 07/27/18 05:11 BASIC METABOLIC PANEL,BMP [CHEM] AM MAGNESIUM [CHEM] AM 07/31/18 09:00 Apixaban [Eliquis] 5 mg PO BID - Plan Plan:: I/P: Acute: A-flutter without RVR -HR noted to be 142 in ED; now controlled -12-lead EKG notes A-flutter with incomplete LBBB -Cardizem IVP given with no change -Now on PO 240mg Cardizem and Metoprolol 50mg BID -HR 60-70s at rest and 60-110 with activity -Troponin negative -Pro-BNP 1789--1884 -Echo 07/24/2018 report: LVEF 55-60%. NRWMA. Mild Aortic Valve Sclerosis w/o Stenosis (Essentially normal) -Eliquis 10 mg po BID for 7 days then 5 mg po BID thereafter -TSH WNL Elevated BNP -2/2 above peripheral edema -Pro-BNP 1789 -Edema bilaterally -Echo as above -Continue Low dose HCTZ/Lasix BID -Compression Stockings and NSAIDs DVT -Noted pain and swelling of right leg -Reports Hx/o DVT- he believes right leg as well 2+ years ago; was reportedly on blood thinners but discontinued -D-dimer 9.82 -Physical exam shows erythema from medial calf up into groin; right sided leg swelling -1mg/kg Lovenox given in ED x1 now on Eliquis treatment protocol -Right LE US shows thrombus within the right common femoral vein, superficial femoral vein, and popliteal veins. Also lower externally subcutaneous edema. -Oxygen saturations have remained high -Continue Naprosyn 325mg Q12H for anti-inflammatory agent -Continue IV Zosyn for empiric treatment for thrombophlebitis -No leukocytosis -Dr. Monroy discussed case briefly with Dr. Pantoja, general surgeon, who did examine the leg and was not concerned; offered NSAIDS and Antibiotics. UTI -Reports increased frequency and nocturia -UA: Turbid with 2+ protein, 2+ occult blood, 3+ leuk esterase, WBCs too numerous to count. -UC shows probable Entero-coccus -Continue IV Zosyn; pharmacy renally dosing it -IV fluids as ordered Chronic: Hx/o DVT HLD HTN Diverticulosis GERD BPH Hypothyroidism Memory Impairment Plan: He is clinically and hemodynamically stable Routine AM Labs Other orders as above Discontinue PT/OT if found at prior level of function CM/SW fo d/c planning Spiritual care consult DVT prophylaxis: Eliquis Code status: Full code; PCP: Dr. Arteaga LOS anticipate > 96hrs pending replacement with increased services, urine culture result/sensitivity and requires more time with treatment Updated his family at bedside regarding morning labs, treatment, clinical progress and discharge care plan.
[2018-07-25] MEDS: Rosuvastatin 10 MG Tab PO SCH (20:31)
[2018-07-26] MEDS ORDERED: Digoxin 500 MCG/2 ML Amp IVPUSH ONE (01:25)
[2018-07-26] MEDS ORDERED: Metoprolol Tartrate 25 MG Tab PO SCH (01:28)
[2018-07-26] MEDS: Levothyroxine 88 MCG Tab PO SCH (05:24)
[2018-07-26] MEDS: Piperacillin/Tazobactam 4.5 GM in Sodium Chloride 0.9% 100 ML IV SCH ×2 (05:24→11:53)
[2018-07-26] MEDS: Hydrochlorothiazide 12.5 MG Cap PO SCH ×2 (05:24→13:32)
--- NOTE | 2018-07-26 08:47 | PCM.PN ---
- General Info Date of Service: 08/02/18 Admission Dx/Problem (Free Text): Admission Diagnosis/Problem Admission Diagnosis/Problem Atrial flutter with rapid ventricular response Subjective Update: Follow Up Functional Status: Reports: Pain Controlled, Tolerating Diet, Ambulating, Urinating, New Symptoms - Review of Systems General: Denies: Fever, Weakness, Fatigue, Malaise, Chills HEENT: Reports: No Symptoms Pulmonary: Denies: Shortness of Breath Cardiovascular: Reports: Edema. Denies: Chest Pain, Palpitations, Dyspnea on Exertion, Lightheadedness Gastrointestinal: Reports: Diarrhea. Denies: Abdominal Pain, Constipation, Decreased Appetite, Nausea, Vomiting Genitourinary: Reports: No Symptoms Musculoskeletal: Reports: No Symptoms Skin: Denies: Cyanosis, Mottled, Pallor, Diaphoresis, Bruising Neurological: Reports: Confusion (baseline). Denies: Difficulty Walking, Weakness, Gait Disturbance Psychiatric: Denies: Depression, Anxiety, Agitation, Hallucinations Systems Review Comment:: Patient reports watery diarrhea and thinks this may have been due to the "black diehl burger" he ate. His heart rate seems to be more controlled after initiation with digoxin. He feels good and he has no other complaints. His heart rate is stable at 60-80s at rest and 80-low hundreds (100-108) with occasional spike in the teens. - Patient Data Vitals - Most Recent: Last Vital Signs Temp 36.2 C 07/26/18 04:00 Pulse 85 07/26/18 05:34 Resp 18 07/26/18 04:00 BP 108/70 07/26/18 05:34 Pulse Ox 96 07/26/18 05:34 Weight - Most Recent: 83.688 kg I&O - Last 24 Hours: Intake & Output 07/25/18 07/26/18 07/26/18 22:59 06:59 14:59 Intake Total 600 298 Output Total 100 Balance 600 198 Lab Results Last 24 Hours: Laboratory Results - last 24 hr 07/26/18 07/26/18 07/26/18 Range/Units 05:20 05:20 05:20 WBC 5.53 (4.23-9.07) K/mm3 RBC 3.93 L (4.63-6.08) M/mm3 Hgb 12.7 L (13.7-17.5) gm/L Hct 39.3 L (40.1-51.0) % MCV 100.0 H (79.0-92.2) fl MCH 32.3 H (25.7-32.2) pg MCHC 32.3 (32.2-35.5) g/dl RDW Std Deviation 49.8 H (35.1-43.9) fL Plt Count 223 (163-337) K/mm3 MPV 7.6 L (9.4-12.3) fl Neut % (Auto) 78.4 H (34.0-67.9) % Lymph % (Auto) 10.5 L (21.8-53.1) % [place] % (Auto) 8.7 (5.3-12.2) % Eos % (Auto) 1.8 (0.8-7.0) Baso % (Auto) 0.4 (0.1-1.2) % Neut # (Auto) 4.34 (1.78-5.38) K/mm3 Lymph # (Auto) 0.58 L (1.32-3.57) K/mm3 [place] # (Auto) 0.48 (0.30-0.82) K/mm3 Eos # (Auto) 0.10 (0.04-0.54) K/mm3 Baso # (Auto) 0.02 (0.01-0.08) K/mm3 Sodium 142 (136-145) mEq/L Potassium 4.1 (3.5-5.1) mEq/L Chloride 106 (98-107) mEq/L Carbon Dioxide 26 (21-32) mEq/L Anion Gap 14.1 (5-15) BUN 25 H (7-18) mg/dL Creatinine 1.4 H (0.7-1.3) mg/dL Est Cr Clr Drug Dosing 40.34 mL/min Estimated GFR (MDRD) 48 (>60) mL/min BUN/Creatinine Ratio 17.9 (14-18) Glucose 106 (83-115) mg/dL Calcium 9.5 (8.5-10.1) mg/dL Magnesium 2.0 (1.8-2.4) mg/dl C-Reactive Protein 4.9 H* (<1.0) mg/dL NT-Pro-B Natriuret Pep 2055 H (0-450) pg/mL [place] Results Last 24 Hours: Microbiology 07/23/18 22:18 Urine Culture - Preliminary Urine, Clean Catch Gram Positive Coccobacillus Med Orders - Current: Current Medications Acetaminophen (Tylenol) 650 mg PO Q4H PRN PRN Reason: Pain (Mild 1-3)/fever Hydrocodone Bitart/Acetaminophen ([place] 325-5 Mg) 1 tab PO Q4H PRN PRN Reason: Pain (moderate 4-6) Albuterol/Ipratropium (Duoneb 3.0-0.5 Mg/3 Ml) 3 ml NEB Q4H PRN PRN Reason: Shortness Of Breath/wheezing Apixaban (Eliquis) 10 mg PO BID COUNT INCLUDES THE [facility] Stop: 07/30/18 21:01 Last Admin: 07/25/18 20:31 Dose: 10 mg Apixaban (Eliquis) 5 mg PO BID COUNT INCLUDES THE [facility] Bisacodyl (Dulcolax) 5 mg PO DAILY PRN PRN Reason: Constipation Cholecalciferol (Vitamin D3) 2,000 units PO DAILY COUNT INCLUDES THE [facility] Last Admin: 07/25/18 08:17 Dose: 2,000 units Diclofenac Sodium (Voltaren 1% Gel) 4 gm TOP QID PRN PRN Reason: Pain Digoxin (Lanoxin) 250 mcg IVPUSH Q6H COUNT INCLUDES THE [facility] Stop: 07/26/18 13:31 Diltiazem HCl (Cardizem Cd) 120 mg PO DAILY COUNT INCLUDES THE [facility] Docusate Sodium (Colace) 100 mg PO BID PRN PRN Reason: Constipation Famotidine (Pepcid) 20 mg PO BID COUNT INCLUDES THE [facility] Last Admin: 07/25/18 20:31 Dose: 20 mg Finasteride (Proscar) 5 mg PO DAILY COUNT INCLUDES THE [facility] Last Admin: 07/25/18 08:17 Dose: 5 mg Fish Oil (Fish Oil) 1 gm PO DAILY COUNT INCLUDES THE [facility] Last Admin: 07/25/18 08:19 Dose: 1 gm Hydralazine HCl (Apresoline) 10 mg IVPUSH Q4H PRN PRN Reason: Hypertension Hydrochlorothiazide (Hydrochlorothiazide) 12.5 mg PO BIDDIURETIC COUNT INCLUDES THE [facility] Last Admin: 07/26/18 05:24 Dose: 12.5 mg Hydromorphone HCl (Dilaudid) 0.25 mg IVPUSH Q2H PRN PRN Reason: Pain (severe 7-10) Diltiazem HCl 125 mg/ Sodium (Chloride) 125 mls @ 15 mls/hr IV ASDIRECTED COUNT INCLUDES THE [facility] Last Infusion: 07/24/18 14:00 Dose: 0 mg/hr, 0 mls/hr Piperacillin Sod/Tazobactam (Sod 4.5 gm/ Sodium Chloride) 100 mls @ 25 mls/hr IV Q8H COUNT INCLUDES THE [facility] Last Admin: 07/26/18 05:24 Dose: 25 mls/hr Levothyroxine Sodium (Synthroid) 88 mcg PO ACBREAKFAST COUNT INCLUDES THE [facility] Last Admin: 07/26/18 05:24 Dose: 88 mcg Lorazepam (Ativan) 2 mg IVPUSH Q4H PRN PRN Reason: Seizures Magnesium Sulfate (Pharmacy To Dose - Magnesium Replacement) 0 dose .XX ASDIRECTED PRN PRN Reason: RX TO WATCH MAG Metoprolol Tartrate (Lopressor) 5 mg IVPUSH Q4H PRN PRN Reason: Tachycardia Last Admin: 07/24/18 07:03 Dose: 5 mg Metoprolol Tartrate (Lopressor) 50 mg PO Q12H COUNT INCLUDES THE [facility] Midodrine (Midodrine) 5 mg PO TIDAC PRN PRN Reason: Hypotension Multivitamins (Thera) 1 each PO DAILY COUNT INCLUDES THE [facility] Last Admin: 07/25/18 08:18 Dose: 1 each Naproxen (Naprosyn) 375 mg PO Q12HR COUNT INCLUDES THE [facility] Last Admin: 07/25/18 20:31 Dose: 375 mg Ondansetron HCl (Zofran) 4 mg IV Q6H PRN PRN Reason: Nausea/Vomiting Last Admin: 07/24/18 08:24 Dose: 4 mg Polyethylene Glycol (Miralax) 17 gm PO DAILY PRN PRN Reason: Constipation Potassium Chloride (Pharmacy To Dose - Potassium Replacement) 0 dose .XX ASDIRECTED PRN PRN Reason: RX TO WATCH K Rosuvastatin Calcium (Crestor) 10 mg PO BEDTIME COUNT INCLUDES THE [facility] Last Admin: 07/25/18 20:31 Dose: 10 mg Saccharomyces Boulardii (Florastor) 500 mg PO BID COUNT INCLUDES THE [facility] Last Admin: 07/25/18 20:31 Dose: 500 mg Senna/Docusate Sodium (Senna Plus) 1 tab PO BID PRN PRN Reason: Constipation Temazepam (Restoril) 7.5 mg PO BEDTIME PRN PRN Reason: Sleep Discontinued Medications Digoxin (Lanoxin) 250 mcg IVPUSH ONETIME ONE Stop: 07/26/18 01:26 Last Admin: 07/26/18 01:43 Dose: 250 mcg Diltiazem HCl (Cardizem) 10 mg IVPUSH ONETIME ONE Stop: 07/23/18 16:19 Last Admin: 07/23/18 16:37 Dose: 10 mg Diltiazem HCl (Cardizem) 10 mg IVPUSH ONETIME ONE Stop: 07/23/18 17:07 Last Admin: 07/23/18 17:15 Dose: 10 mg Diltiazem HCl (Cardizem Cd) 180 mg PO DAILY COUNT INCLUDES THE [facility] Last Admin: 07/24/18 09:11 Dose: 180 mg Diltiazem HCl (Dilacor Xr) 240 mg PO DAILY COUNT INCLUDES THE [facility] Last Admin: 07/25/18 08:18 Dose: 240 mg Enoxaparin Sodium (Lovenox) 90 mg SUBCUT ONETIME ONE Stop: 07/23/18 16:32 Last Admin: 07/23/18 16:50 Dose: 90 mg Furosemide (Lasix) 10 mg IVPUSH BIDDIURETIC COUNT INCLUDES THE [facility] Stop: 07/25/18 14:01 Last Admin: 07/25/18 15:00 Dose: 10 mg Nicardipine HCl 25 mg/ Sodium (Chloride) 260 mls @ 104 mls/hr IV ASDIRECTED COUNT INCLUDES THE [facility] Sodium Chloride (Normal Saline) 1,000 mls @ 75 mls/hr IV ASDIRECTED COUNT INCLUDES THE [facility] Last Admin: 07/24/18 05:38 Dose: 75 mls/hr Diltiazem HCl 125 mg/ Sodium (Chloride) 125 mls @ 10 mls/hr IV ASDIRECTED COUNT INCLUDES THE [facility] Last Infusion: 07/23/18 20:15 Dose: 0 mg/hr, 0 mls/hr Piperacillin Sod/Tazobactam (Sod 4.5 gm/ Sodium Chloride) 100 mls @ 200 mls/hr IV ONETIME ONE Stop: 07/24/18 12:29 Last Admin: 07/24/18 12:31 Dose: 200 mls/hr Metoprolol Tartrate (Lopressor) 25 mg PO Q12H COUNT INCLUDES THE [facility] Last Admin: 07/24/18 08:24 Dose: 25 mg Metoprolol Tartrate (Lopressor) 50 mg PO Q12H COUNT INCLUDES THE [facility] Last Admin: 07/25/18 20:30 Dose: 50 mg Metoprolol Tartrate (Lopressor) 100 mg PO Q12H COUNT INCLUDES THE [facility] Last Admin: 07/26/18 02:22 Dose: Not Given Midodrine (Midodrine) 5 mg PO NOW STA Stop: 07/23/18 21:36 Last Admin: 07/24/18 00:31 Dose: Not Given Naproxen (Naprosyn) 500 mg PO ONETIME ONE Stop: 07/24/18 11:35 Last Admin: 07/24/18 12:30 Dose: 500 mg Non-Formulary Medication (Diclofenac Sodium [Voltaren 1% Gel]) 4 g TOP QID PRN PRN Reason: Pain Terazosin HCl (Hytrin) 4 mg PO BEDTIME COUNT INCLUDES THE [facility] Last Admin: 07/24/18 20:43 Dose: Not Given - Exam General: Alert, Cooperative, No Acute Distress HEENT: Pupils Equal, Pupils Reactive, EOMI, Mucous Membr. Moist/[place] Neck: Supple, Trachea Midline, No JVD, No Thyromegaly Lungs: Normal Respiratory Effort, Decreased Breath Sounds Cardiovascular: Irregular Rhythm GI/Abdominal Exam: Normal Bowel Sounds, Soft, Non-Tender, No Organomegaly, No Distention, No Abnormal Bruit (Male) Exam: Deferred Back Exam: Normal Inspection, Decreased Range of Motion Extremities: Normal Inspection (left lower extremity), Normal Range of Motion, Non-Tender, Normal Capillary Refill, Pedal Edema (on right lower extremity), Redness (improving on right lower extremity). No: Sudheer's Sign, Leg Pain (of the affected leg), Limited Range of Motion, Increased Warmth, Mottled, Pallor Peripheral Pulses: 1+: Posterior Tibial (R), Dorsalis Pedis (R), 2+: Posterior Tibial (L), Dorsalis Pedis (L) Skin: Warm, Dry, Intact Neurological: No New Focal Deficit (limited but grossly intact). No: Normal Gait Psy/Mental Status: Alert, Normal Affect, Normal Mood - Problem List Review Problem List Initiated/Reviewed/Updated: Yes - My Orders Last 24 Hours: My Active Orders 07/25/18 09:30 Patient Status [ADT] Routine 07/25/18 Lunch Fluid Restriction [DIET] 07/26/18 07:30 Digoxin [Lanoxin] 250 mcg IVPUSH Q6H 07/26/18 09:00 Diltiazem [Cardizem CD] 120 mg PO DAILY Metoprolol Tartrate [Lopressor] 50 mg PO Q12H 07/26/18 12:00 DIGOXIN [CHEM] Routine 07/27/18 05:11 BASIC METABOLIC PANEL,BMP [CHEM] AM MAGNESIUM [CHEM] AM 07/31/18 09:00 Apixaban [Eliquis] 5 mg PO BID - Plan Plan:: I/P: Acute: A-flutter without RVR -HR noted to be 142 in ED; now controlled -12-lead EKG notes A-flutter with incomplete LBBB -Cardizem IVP given with no change -Now on PO 240mg Cardizem; plan to come off -Continue Metoprolol 50mg BID and now Digoxin 125 mcg po daily in AM -HR 60-70s at rest and 60-110 with activity -Troponin negative -Pro-BNP 178--1883-->2054 (not sure why increasing he is on lasix/hctz) -Echo 07/24/2018 report: LVEF 55-60%. NRWMA. Mild Aortic Valve Sclerosis w/o Stenosis (Essentially normal) -Eliquis 10 mg po BID for 7 days then 5 mg po BID thereafter -TSH WNL Elevated BNP -2/2 above peripheral edema -Pro-BNP 1788--1883-->2054 -Edema bilaterally -Echo as above -Continue Low dose HCTZ -Compression Stockings; discontinue NSAIDs due to slightly reduced renal function DVT, Stable -Noted pain and swelling of right leg -Reports Hx/o DVT- he believes right leg as well 2+ years ago; was reportedly on blood thinners but discontinued -D-dimer 9.82 -Physical exam shows erythema from medial calf up into groin; right sided leg swelling -1mg/kg Lovenox given in ED x1 now on Eliquis treatment protocol -Right LE US shows thrombus within the right common femoral vein, superficial femoral vein, and popliteal veins. Also lower externally subcutaneous edema. -Oxygen saturations have remained high -Continue Naprosyn 325mg Q12H for anti-inflammatory agent -Continue IV Zosyn for empiric treatment for thrombophlebitis -No leukocytosis -Dr. Monroy discussed case briefly with Dr. Pantoja, general surgeon, who did examine the leg and was not concerned; offered NSAIDS and Antibiotics. UTI -Reports increased frequency and nocturia -UA: Turbid with 2+ protein, 2+ occult blood, 3+ leuk esterase, WBCs too numerous to count. -UC shows 2/2 Entero-coccus -Discontinue IV Zosyn; pharmacy to start Doxy 100 mg po BID -IV fluids as ordered Watery Diarrhea -R/o C. Diff -Supportive care -PRN anti-motility agent Chronic: Hx/o DVT HLD HTN Diverticulosis GERD BPH Hypothyroidism Memory Impairment Plan: He remains clinically and hemodynamically stable Routine AM Labs IV fluids to prevent worsening of renal function and monitor for electrolytes loss Hold HCTZ today Repeat labs in the evening and d/c NSAIDs Other orders as above CM/SW fo d/c planning DVT prophylaxis: On Eliquis Code status: Full code; PCP: Dr. Arteaga LOS > 96hrs pending re-placement with increased services, not fully controlled heart rate, he requires more treatment time
[2018-07-26] MEDS ORDERED: Diltiazem 120 MG Cap.CD PO SCH (09:00)
[2018-07-26] MEDS: Digoxin 500 MCG/2 ML Amp IVPUSH SCH ×2 (09:05→13:30)
[2018-07-26] MEDS: Multivitamins,Therapeutic Tab PO SCH (09:10)
[2018-07-26] MEDS: Metoprolol Tartrate 50 MG Tab PO SCH ×2 (09:11→20:23)
[2018-07-26] MEDS: Fish Oil/Omega-3 Fatty Acids 1 Gm Cap PO SCH (09:11)
[2018-07-26] MEDS: Saccharomyces Boulardii (Probiotic) 250 MG Cap PO SCH ×2 (09:11→20:22)
[2018-07-26] MEDS: Cholecalciferol (Vitamin D3) 1,000 Unit Tab PO SCH (09:12)
[2018-07-26] MEDS: Famotidine 20 MG Tab PO SCH (09:13)
[2018-07-26] MEDS: Apixaban 5 MG Tab PO SCH ×2 (09:13→20:29)
[2018-07-26] MEDS: Finasteride 5 MG Tab PO SCH (09:14)
[2018-07-26] MEDS ORDERED: Loperamide 2 MG Cap PO PRN (13:49)
[2018-07-26] MEDS: NS + KCl 20mEq/L 1,000 ML IV SCH ×2 (16:48→23:11)
[2018-07-26] MEDS: Rosuvastatin 10 MG Tab PO SCH (20:24)
[2018-07-26] MEDS: Doxycycline 100 MG Cap PO SCH (20:25)
[2018-07-27] MEDS: Levothyroxine 88 MCG Tab PO SCH (05:57)
--- NOTE | 2018-07-27 07:43 | PCM.PN ---
- General Info Date of Service: 07/27/18 Admission Dx/Problem (Free Text): Admission Diagnosis/Problem Admission Diagnosis/Problem Atrial flutter with rapid ventricular response Subjective Update: Follow Up Functional Status: Reports: Pain Controlled, Tolerating Diet, Ambulating, Urinating. Denies: New Symptoms - Review of Systems General: Denies: Fever, Weakness, Fatigue, Malaise, Chills HEENT: Reports: No Symptoms Pulmonary: Denies: Shortness of Breath, Pleuritic Chest Pain Cardiovascular: Reports: Edema. Denies: No Symptoms, Chest Pain, Palpitations, Dyspnea on Exertion, Lightheadedness Gastrointestinal: Reports: Diarrhea. Denies: Abdominal Pain, Decreased Appetite , Nausea, Vomiting Genitourinary: Reports: No Symptoms Musculoskeletal: Denies: Neck Pain, Shoulder Pain, Hand Pain, Back Pain, Leg Pain, Foot Pain, Joint Swelling Skin: Denies: Cyanosis, Jaundice, Mottled, Pallor, Diaphoresis, Bruising, Pruritis Neurological: Reports: Confusion (baseline), Gait Disturbance. Denies: Difficulty Walking, Weakness Psychiatric: Denies: Depression, Anxiety, Agitation, Hallucinations Systems Review Comment:: Had significant urinary retention last night. Per nurse, he had trouble voiding. He had about 1500 ml of urine on straight cath. He also had loose bowel movement at least twice. No other significant overnight or acute issues noted. He rested well according to him. His hear rate is controlled. He has no complaints this AM. His labs are much better this morning. - Patient Data Vitals - Most Recent: Last Vital Signs Temp 36.6 C 07/27/18 05:54 Pulse 69 07/27/18 05:54 Resp 20 07/27/18 05:54 BP 116/65 07/27/18 05:57 Pulse Ox 96 07/27/18 05:54 Weight - Most Recent: 83.143 kg I&O - Last 24 Hours: Intake & Output 07/26/18 07/27/18 07/27/18 22:59 06:59 14:59 Intake Total 450 1689 Output Total 50 3000 Balance 400 -1311 Lab Results Last 24 Hours: Laboratory Results - last 24 hr 07/26/18 07/26/18 07/26/18 Range/Units 05:20 09:40 20:19 WBC (4.23-9.07) K/mm3 RBC (4.63-6.08) M/mm3 Hgb (13.7-17.5) gm/L Hct (40.1-51.0) % MCV (79.0-92.2) fl MCH (25.7-32.2) pg MCHC (32.2-35.5) g/dl RDW Std Deviation (35.1-43.9) fL Plt Count (163-337) K/mm3 MPV (9.4-12.3) fl Neut % (Auto) (34.0-67.9) % Lymph % (Auto) (21.8-53.1) % [place] % (Auto) (5.3-12.2) % Eos % (Auto) (0.8-7.0) Baso % (Auto) (0.1-1.2) % Neut # (Auto) (1.78-5.38) K/mm3 Lymph # (Auto) (1.32-3.57) K/mm3 [place] # (Auto) (0.30-0.82) K/mm3 Eos # (Auto) (0.04-0.54) K/mm3 Baso # (Auto) (0.01-0.08) K/mm3 Sodium 140 (136-145) mEq/L Potassium 3.7 (3.5-5.1) mEq/L Chloride 107 (98-107) mEq/L Carbon Dioxide 26 (21-32) mEq/L Anion Gap 10.7 (5-15) BUN 27 H (7-18) mg/dL Creatinine 1.3 (0.7-1.3) mg/dL Est Cr Clr Drug Dosing 43.44 mL/min Estimated GFR (MDRD) 52 (>60) mL/min BUN/Creatinine Ratio 20.8 H (14-18) Glucose 131 H (83-115) mg/dL Calcium 9.2 (8.5-10.1) mg/dL Magnesium 1.9 (1.8-2.4) mg/dl C-Reactive Protein (<1.0) mg/dL NT-Pro-B Natriuret Pep 2055 H (0-450) pg/mL C.difficile [id number] Presumptive negative C. difficile Tox (PCR) Negative 07/27/18 07/27/18 Range/Units 05:53 05:53 WBC 4.89 (4.23-9.07) K/mm3 RBC 3.71 L (4.63-6.08) M/mm3 Hgb 11.9 L (13.7-17.5) gm/L Hct 36.8 L (40.1-51.0) % MCV 99.2 H (79.0-92.2) fl MCH 32.1 (25.7-32.2) pg MCHC 32.3 (32.2-35.5) g/dl RDW Std Deviation 49.3 H (35.1-43.9) fL Plt Count 212 (163-337) K/mm3 MPV 7.5 L (9.4-12.3) fl Neut % (Auto) 66.8 (34.0-67.9) % Lymph % (Auto) 16.4 L (21.8-53.1) % [place] % (Auto) 13.5 H (5.3-12.2) % Eos % (Auto) 2.7 (0.8-7.0) Baso % (Auto) 0.4 (0.1-1.2) % Neut # (Auto) 3.27 (1.78-5.38) K/mm3 Lymph # (Auto) 0.80 L (1.32-3.57) K/mm3 [place] # (Auto) 0.66 (0.30-0.82) K/mm3 Eos # (Auto) 0.13 (0.04-0.54) K/mm3 Baso # (Auto) 0.02 (0.01-0.08) K/mm3 Sodium 140 (136-145) mEq/L Potassium 4.2 (3.5-5.1) mEq/L Chloride 110 H (98-107) mEq/L Carbon Dioxide 25 (21-32) mEq/L Anion Gap 9.2 (5-15) BUN 21 H (7-18) mg/dL Creatinine 1.0 (0.7-1.3) mg/dL Est Cr Clr Drug Dosing 56.48 mL/min Estimated GFR (MDRD) > 60 (>60) mL/min BUN/Creatinine Ratio 21.0 H (14-18) Glucose 92 (83-115) mg/dL Calcium 8.9 (8.5-10.1) mg/dL Magnesium 1.8 (1.8-2.4) mg/dl C-Reactive Protein 5.7 H* (<1.0) mg/dL NT-Pro-B Natriuret Pep (0-450) pg/mL C.difficile [id number] C. difficile Tox (PCR) [place] Results Last 24 Hours: Microbiology 07/23/18 22:18 Urine Culture - Final Urine, Clean Catch Enterococcus Faecalis Med Orders - Current: Current Medications Acetaminophen (Tylenol) 650 mg PO Q4H PRN PRN Reason: Pain (Mild 1-3)/fever Hydrocodone Bitart/Acetaminophen ([place] 325-5 Mg) 1 tab PO Q4H PRN PRN Reason: Pain (moderate 4-6) Albuterol/Ipratropium (Duoneb 3.0-0.5 Mg/3 Ml) 3 ml NEB Q4H PRN PRN Reason: Shortness Of Breath/wheezing Apixaban (Eliquis) 10 mg PO BID [facility] Stop: 07/30/18 21:01 Last Admin: 07/26/18 20:29 Dose: 10 mg Apixaban (Eliquis) 5 mg PO BID [facility] Bisacodyl (Dulcolax) 5 mg PO DAILY PRN PRN Reason: Constipation Cholecalciferol (Vitamin D3) 2,000 units PO DAILY [facility] Last Admin: 07/26/18 09:12 Dose: 2,000 units Diclofenac Sodium (Voltaren 1% Gel) 4 gm TOP QID PRN PRN Reason: Pain Digoxin (Lanoxin) 125 mcg PO DAILY@1200 [facility] Docusate Sodium (Colace) 100 mg PO BID PRN PRN Reason: Constipation Doxycycline Hyclate (Vibramycin) 100 mg PO BID [facility] Last Admin: 07/26/18 20:25 Dose: 100 mg Famotidine (Pepcid) 20 mg PO DAILY [facility] Finasteride (Proscar) 5 mg PO DAILY [facility] Last Admin: 07/26/18 09:14 Dose: 5 mg Fish Oil (Fish Oil) 1 gm PO DAILY [facility] Last Admin: 07/26/18 09:11 Dose: 1 gm Hydralazine HCl (Apresoline) 10 mg IVPUSH Q4H PRN PRN Reason: Hypertension Hydrochlorothiazide (Hydrochlorothiazide) 12.5 mg PO BIDDIURETIC [facility] Hydromorphone HCl (Dilaudid) 0.25 mg IVPUSH Q2H PRN PRN Reason: Pain (severe 7-10) Potassium Chloride/Sodium Chloride (Normal Saline With 20 Meq Kcl) 1,000 mls @ 125 mls/hr IV ASDIRECTED [facility] Last Admin: 07/26/18 23:11 Dose: 125 mls/hr Levothyroxine Sodium (Synthroid) 88 mcg PO ACBREAKFAST [facility] Last Admin: 07/27/18 05:57 Dose: 88 mcg Loperamide HCl (Imodium) 2 mg PO Q6H PRN PRN Reason: Diarrhea Last Admin: 07/26/18 13:57 Dose: 2 mg Lorazepam (Ativan) 2 mg IVPUSH Q4H PRN PRN Reason: Seizures Magnesium Sulfate (Pharmacy To Dose - Magnesium Replacement) 0 dose .XX ASDIRECTED PRN PRN Reason: RX TO WATCH MAG Metoprolol Tartrate (Lopressor) 5 mg IVPUSH Q4H PRN PRN Reason: Tachycardia Last Admin: 07/24/18 07:03 Dose: 5 mg Metoprolol Tartrate (Lopressor) 50 mg PO Q12H [facility] Last Admin: 07/26/18 20:23 Dose: 50 mg Midodrine (Midodrine) 5 mg PO TIDAC PRN PRN Reason: Hypotension Multivitamins (Thera) 1 each PO DAILY [facility] Last Admin: 07/26/18 09:10 Dose: 1 each Ondansetron HCl (Zofran) 4 mg IV Q6H PRN PRN Reason: Nausea/Vomiting Last Admin: 07/24/18 08:24 Dose: 4 mg Polyethylene Glycol (Miralax) 17 gm PO DAILY PRN PRN Reason: Constipation Potassium Chloride (Pharmacy To Dose - Potassium Replacement) 0 dose .XX ASDIRECTED PRN PRN Reason: RX TO WATCH K Rosuvastatin Calcium (Crestor) 10 mg PO BEDTIME [facility] Last Admin: 07/26/18 20:24 Dose: 10 mg Saccharomyces Boulardii (Florastor) 500 mg PO BID [facility] Last Admin: 07/26/18 20:22 Dose: 500 mg Senna/Docusate Sodium (Senna Plus) 1 tab PO BID PRN PRN Reason: Constipation Temazepam (Restoril) 7.5 mg PO BEDTIME PRN PRN Reason: Sleep Discontinued Medications Digoxin (Lanoxin) 250 mcg IVPUSH ONETIME ONE Stop: 07/26/18 01:26 Last Admin: 07/26/18 01:43 Dose: 250 mcg Digoxin (Lanoxin) 250 mcg IVPUSH Q6H [facility] Stop: 07/26/18 13:31 Last Admin: 07/26/18 13:30 Dose: 250 mcg Diltiazem HCl (Cardizem) 10 mg IVPUSH ONETIME ONE Stop: 07/23/18 16:19 Last Admin: 07/23/18 16:37 Dose: 10 mg Diltiazem HCl (Cardizem) 10 mg IVPUSH ONETIME ONE Stop: 07/23/18 17:07 Last Admin: 07/23/18 17:15 Dose: 10 mg Diltiazem HCl (Cardizem Cd) 180 mg PO DAILY [facility] Last Admin: 07/24/18 09:11 Dose: 180 mg Diltiazem HCl (Dilacor Xr) 240 mg PO DAILY [facility] Last Admin: 07/25/18 08:18 Dose: 240 mg Diltiazem HCl (Cardizem Cd) 120 mg PO DAILY [facility] Last Admin: 07/26/18 09:14 Dose: 120 mg Enoxaparin Sodium (Lovenox) 90 mg SUBCUT ONETIME ONE Stop: 07/23/18 16:32 Last Admin: 07/23/18 16:50 Dose: 90 mg Famotidine (Pepcid) 20 mg PO BID [facility] Last Admin: 07/26/18 09:13 Dose: 20 mg Furosemide (Lasix) 10 mg IVPUSH BIDDIURETIC [facility] Stop: 07/25/18 14:01 Last Admin: 07/25/18 15:00 Dose: 10 mg Hydrochlorothiazide (Hydrochlorothiazide) 12.5 mg PO BIDDIURETIC [facility] Last Admin: 07/26/18 13:32 Dose: 12.5 mg Nicardipine HCl 25 mg/ Sodium (Chloride) 260 mls @ 104 mls/hr IV ASDIRECTED [facility] Sodium Chloride (Normal Saline) 1,000 mls @ 75 mls/hr IV ASDIRECTED [facility] Last Admin: 07/24/18 05:38 Dose: 75 mls/hr Diltiazem HCl 125 mg/ Sodium (Chloride) 125 mls @ 10 mls/hr IV ASDIRECTED [facility] Last Infusion: 07/23/18 20:15 Dose: 0 mg/hr, 0 mls/hr Diltiazem HCl 125 mg/ Sodium (Chloride) 125 mls @ 15 mls/hr IV ASDIRECTED [facility] Last Infusion: 07/24/18 14:00 Dose: 0 mg/hr, 0 mls/hr Piperacillin Sod/Tazobactam (Sod 4.5 gm/ Sodium Chloride) 100 mls @ 200 mls/hr IV ONETIME ONE Stop: 07/24/18 12:29 Last Admin: 07/24/18 12:31 Dose: 200 mls/hr Piperacillin Sod/Tazobactam (Sod 4.5 gm/ Sodium Chloride) 100 mls @ 25 mls/hr IV Q8H [facility] Stop: 07/26/18 16:00 Last Admin: 07/26/18 11:53 Dose: 25 mls/hr Metoprolol Tartrate (Lopressor) 25 mg PO Q12H [facility] Last Admin: 07/24/18 08:24 Dose: 25 mg Metoprolol Tartrate (Lopressor) 50 mg PO Q12H [facility] Last Admin: 07/25/18 20:30 Dose: 50 mg Metoprolol Tartrate (Lopressor) 100 mg PO Q12H [facility] Last Admin: 07/26/18 02:22 Dose: Not Given Midodrine (Midodrine) 5 mg PO NOW STA Stop: 07/23/18 21:36 Last Admin: 07/24/18 00:31 Dose: Not Given Naproxen (Naprosyn) 500 mg PO ONETIME ONE Stop: 07/24/18 11:35 Last Admin: 07/24/18 12:30 Dose: 500 mg Naproxen (Naprosyn) 375 mg PO Q12HR [facility] Last Admin: 07/26/18 09:10 Dose: 375 mg Non-Formulary Medication (Diclofenac Sodium [Voltaren 1% Gel]) 4 g TOP QID PRN PRN Reason: Pain Terazosin HCl (Hytrin) 4 mg PO BEDTIME [facility] Last Admin: 07/24/18 20:43 Dose: Not Given - Exam General: Alert, Cooperative, No Acute Distress HEENT: Pupils Equal, Pupils Reactive, EOMI, Mucous Membr. Moist/[place] Neck: Supple Lungs: Clear to Auscultation, Normal Respiratory Effort Cardiovascular: Irregular Rhythm GI/Abdominal Exam: Normal Bowel Sounds, Soft, Non-Tender, No Organomegaly, No Distention, No Abnormal Bruit (Male) Exam: Deferred Back Exam: Normal Inspection, Decreased Range of Motion Extremities: Normal Inspection (left lower extremity), Normal Range of Motion, Non-Tender, Normal Capillary Refill (left lower extremity), Pedal Edema (right foot), Slow Capillary Refill (right foot), Redness (improving on right lower extremity) Peripheral Pulses: 1+: Posterior Tibial (R), Dorsalis Pedis (R), 2+: Posterior Tibial (L), Dorsalis Pedis (L) Skin: Warm, Dry, Intact Wound/Incisions: Erythema Improving Neurological: No New Focal Deficit. No: Normal Gait Psy/Mental Status: Alert, Normal Affect, Normal Mood - Problem List Review Problem List Initiated/Reviewed/Updated: Yes - My Orders Last 24 Hours: My Active Orders 07/26/18 09:00 Metoprolol Tartrate [Lopressor] 50 mg PO Q12H 07/26/18 13:49 Loperamide [Imodium] 2 mg PO Q6H PRN 07/26/18 16:15 NS + KCl 20mEq/L [Normal Saline with 20 mEq KCl] 1,000 ml IV ASDIRECTED 07/26/18 21:00 Doxycycline [Vibramycin] 100 mg PO BID 07/27/18 00:00 Bladder Scan [RC] ASDIRECTED Insert Urinary Catheter [OM.PC] Q24H 07/27/18 00:01 Urinary Catheter Assessment [RC] ASDIRECTED 07/27/18 09:00 Famotidine [Pepcid] 20 mg PO DAILY hydroCHLOROthiazide 12.5 mg PO BIDDIURETIC 07/27/18 12:00 Digoxin [Lanoxin] 125 mcg PO DAILY@1200 07/31/18 09:00 Apixaban [Eliquis] 5 mg PO BID - Plan Plan:: I/P: Acute: A-flutter -HR noted to be 142 in ED; now controlled -12-lead EKG notes A-flutter with incomplete LBBB -Cardizem IVP given with no change -Now on PO 240mg Cardizem; plan to come off -Continue Metoprolol 50mg BID and Digoxin 125 mcg po daily -HR 60-70s at rest and 70-90s w/ with activity; at times some random spike in the 120s or 130s -Troponin negative -Pro-BNP 1789--1884-->2054 (not sure why increasing he is on lasix/hctz) -Echo 07/24/2018 report: LVEF 55-60%. NRWMA. Mild Aortic Valve Sclerosis w/o Stenosis (Essentially normal) -Eliquis 10 mg po BID for 7 days then 5 mg po BID thereafter -TSH WNL Peripheral Edema -2/2 DVT +/- Vascular Insufficiency (varicose veins noted on lower extremity) -Was bilateral lower extremity; now affected limb only -Continue Low dose HCTZ -Compression Stockings; discontinue NSAIDs due to slightly reduced renal function DVT, Stable -Noted pain and swelling of right leg -Reports Hx/o DVT- he believes right leg as well 2+ years ago; was reportedly on blood thinners but discontinued -D-dimer 9.82 -Physical exam shows erythema from medial calf up into groin; right sided leg swelling -1mg/kg Lovenox given in ED x1 now on Eliquis treatment protocol -Right LE US shows thrombus within the right common femoral vein, superficial femoral vein, and popliteal veins. Also lower externally subcutaneous edema. -Oxygen saturations have remained high -Continue Naprosyn 325mg Q12H for anti-inflammatory agent -Continue IV Zosyn for empiric treatment for thrombophlebitis -No leukocytosis -Dr. Monroy discussed case briefly with Dr. Pantoja, general surgeon, who did examine the leg and was not concerned; offered NSAIDS and Antibiotics. Loose Diarrhea -C. Diff screening negative -Supportive care -PRN anti-motility agent Urinary Retention -Carries hx/o BPH -D/c's Hytrin due to hypotension when we had him on Cardizem at the same time -Had 1500ml of urine output with straight cath last night -Will resume home dose Hytrin 4mg po QHS Resolved: S/p UTI -Reports increased frequency and nocturia -UA: Turbid with 2+ protein, 2+ occult blood, 3+ leuk esterase, WBCs too numerous to count. -UC shows 2/2 Entero-coccus -Discontinue IV Zosyn; pharmacy to start Doxy 100 mg po BID ; completed treatment -IV fluids as ordered Chronic: Hx/o DVT HLD HTN Diverticulosis GERD BPH Hypothyroidism Memory Impairment Plan: He is essentially the same Routine AM Labs Resume HCTZ today Repeat labs in the evening and d/c NSAIDs Other orders as above CM/SW for d/c planning DVT prophylaxis: On Eliquis Code status: Full code; PCP: Dr. Arteaga Discharge Sunday
[2018-07-27] MEDS: Cholecalciferol (Vitamin D3) 1,000 Unit Tab PO SCH (09:14)
[2018-07-27] MEDS: Doxycycline 100 MG Cap PO SCH ×2 (09:14→20:10)
[2018-07-27] MEDS: Famotidine 20 MG Tab PO SCH (09:14)
[2018-07-27] MEDS: Finasteride 5 MG Tab PO SCH ×2 (09:14→19:28)
[2018-07-27] MEDS: Multivitamins,Therapeutic Tab PO SCH (09:14)
[2018-07-27] MEDS: Saccharomyces Boulardii (Probiotic) 250 MG Cap PO SCH ×2 (09:15→20:09)
[2018-07-27] MEDS: Hydrochlorothiazide 12.5 MG Cap PO SCH ×2 (09:15→13:00)
[2018-07-27] MEDS: Apixaban 5 MG Tab PO SCH ×2 (09:15→20:09)
[2018-07-27] MEDS: Fish Oil/Omega-3 Fatty Acids 1 Gm Cap PO SCH (09:15)
[2018-07-27] MEDS: Metoprolol Tartrate 50 MG Tab PO SCH ×2 (09:16→20:11)
[2018-07-27] MEDS: Digoxin 125 MCG Tab PO SCH (13:00)
[2018-07-27] MEDS ORDERED: Furosemide 20 MG/2 ML VIAL IVPUSH ONE (18:42)
[2018-07-27] MEDS ORDERED: Furosemide 40 MG/4 ML VIAL IVPUSH ONE (18:49)
[2018-07-27] MEDS ORDERED: Tamsulosin 0.4 MG Cap.ER PO ONE (19:00)
[2018-07-27] MEDS: Rosuvastatin 10 MG Tab PO SCH (20:09)
[2018-07-27] MEDS ORDERED: Tamsulosin 0.4 MG Cap.ER PO SCH (21:00)
[2018-07-27] MEDS ORDERED: Metoprolol Tartrate 25 MG Tab PO ONE (21:22)
[2018-07-28] MEDS: Hydrochlorothiazide 12.5 MG Cap PO SCH ×2 (06:59→13:21)
[2018-07-28] MEDS: Levothyroxine 88 MCG Tab PO SCH (06:59)
[2018-07-28] MEDS: Multivitamins,Therapeutic Tab PO SCH (08:45)
[2018-07-28] MEDS: Saccharomyces Boulardii (Probiotic) 250 MG Cap PO SCH ×2 (08:46→20:27)
[2018-07-28] MEDS: Famotidine 20 MG Tab PO SCH (08:46)
[2018-07-28] MEDS: Tamsulosin 0.4 MG Cap.ER PO SCH ×2 (08:46→17:04)
[2018-07-28] MEDS: Finasteride 5 MG Tab PO SCH (08:46)
[2018-07-28] MEDS: Doxycycline 100 MG Cap PO SCH ×2 (08:46→20:28)
[2018-07-28] MEDS: Metoprolol Tartrate 25 MG Tab PO SCH ×2 (08:46→20:28)
[2018-07-28] MEDS: Fish Oil/Omega-3 Fatty Acids 1 Gm Cap PO SCH (08:47)
[2018-07-28] MEDS: Cholecalciferol (Vitamin D3) 1,000 Unit Tab PO SCH (08:47)
[2018-07-28] MEDS: Apixaban 5 MG Tab PO SCH ×2 (08:47→20:27)
--- NOTE | 2018-07-28 10:47 | PCM.PN ---
- General Info Date of Service: 07/28/18 Admission Dx/Problem (Free Text): Admission Diagnosis/Problem Admission Diagnosis/Problem Atrial flutter with rapid ventricular response Subjective Update: Follow Up Functional Status: Reports: Pain Controlled, Tolerating Diet, Ambulating, Urinating, New Symptoms - Review of Systems General: Denies: Fever, Weakness, Malaise, Chills HEENT: Reports: No Symptoms Pulmonary: Denies: Shortness of Breath Cardiovascular: Reports: Edema. Denies: Chest Pain, Palpitations, Dyspnea on Exertion, Lightheadedness Gastrointestinal: Reports: Flatus. Denies: Abdominal Pain, Decreased Appetite, Diarrhea, Nausea, Vomiting Genitourinary: Reports: Retention Musculoskeletal: Denies: Neck Pain, Back Pain Skin: Denies: Cyanosis, Mottled, Pallor, Diaphoresis, Bruising, Rash Neurological: Denies: Confusion, Numbness, Difficulty Walking, Gait Disturbance Psychiatric: Denies: Depression, Anxiety, Agitation, Hallucinations Systems Review Comment:: Had significant urinary retention last night (he has a hx/o of severe BPH). Bladder scan after bladder shows > 500. We was already on flomax, proscar and hytrin and I added low dose diuretic and still w/o much help. His heart rate is fully controlled mostly 60s-90s overnight. He reports no more diarrhea. His right lower extremity looks much better, now w/o erythema and with improved edema. he has been ambulating w/o much difficulties and his heart rate respond well with activities. He has no new complaints this morning. His Hgb is fairly stable at 11.7. - Patient Data Vitals - Most Recent: Last Vital Signs Temp 37.3 C 07/28/18 07:47 Pulse 83 07/28/18 08:46 Resp 16 07/28/18 07:47 BP 127/71 07/28/18 08:46 Pulse Ox 95 07/28/18 07:47 Weight - Most Recent: 81.238 kg I&O - Last 24 Hours: Intake & Output 07/27/18 07/28/18 07/28/18 22:59 06:59 14:59 Intake Total 525 100 Output Total 1500 1350 Balance -975 -1250 Lab Results Last 24 Hours: Laboratory Results - last 24 hr 07/28/18 07/28/18 Range/Units 06:10 06:10 WBC 5.05 (4.23-9.07) K/mm3 RBC 3.64 L (4.63-6.08) M/mm3 Hgb 11.7 L (13.7-17.5) gm/L Hct 35.9 L (40.1-51.0) % MCV 98.6 H (79.0-92.2) fl MCH 32.1 (25.7-32.2) pg MCHC 32.6 (32.2-35.5) g/dl RDW Std Deviation 48.1 H (35.1-43.9) fL Plt Count 197 (163-337) K/mm3 MPV 7.4 L (9.4-12.3) fl Neut % (Auto) 67.5 (34.0-67.9) % Lymph % (Auto) 17.4 L (21.8-53.1) % [place] % (Auto) 11.9 (5.3-12.2) % Eos % (Auto) 2.6 (0.8-7.0) Baso % (Auto) 0.4 (0.1-1.2) % Neut # (Auto) 3.41 (1.78-5.38) K/mm3 Lymph # (Auto) 0.88 L (1.32-3.57) K/mm3 [facility] # (Auto) 0.60 (0.30-0.82) K/mm3 Eos # (Auto) 0.13 (0.04-0.54) K/mm3 Baso # (Auto) 0.02 (0.01-0.08) K/mm3 C-Reactive Protein 4.5 H* (<1.0) mg/dL Med Orders - Current: Current Medications Acetaminophen (Tylenol) 650 mg PO Q4H PRN PRN Reason: Pain (Mild 1-3)/fever Hydrocodone Bitart/Acetaminophen ([place] 325-5 Mg) 1 tab PO Q4H PRN PRN Reason: Pain (moderate 4-6) Albuterol/Ipratropium (Duoneb 3.0-0.5 Mg/3 Ml) 3 ml NEB Q4H PRN PRN Reason: Shortness Of Breath/wheezing Apixaban (Eliquis) 10 mg PO BID KRISSY Stop: 07/30/18 21:01 Last Admin: 07/28/18 08:47 Dose: 10 mg Apixaban (Eliquis) 5 mg PO BID [facility] Bisacodyl (Dulcolax) 5 mg PO DAILY PRN PRN Reason: Constipation Cholecalciferol (Vitamin D3) 2,000 units PO DAILY [facility] Last Admin: 07/28/18 08:47 Dose: 2,000 units Diclofenac Sodium (Voltaren 1% Gel) 4 gm TOP QID PRN PRN Reason: Pain Digoxin (Lanoxin) 125 mcg PO DAILY@1200 [facility] Last Admin: 07/27/18 13:00 Dose: 125 mcg Docusate Sodium (Colace) 100 mg PO BID PRN PRN Reason: Constipation Doxycycline Hyclate (Vibramycin) 100 mg PO BID [facility] Last Admin: 07/28/18 08:46 Dose: 100 mg Famotidine (Pepcid) 20 mg PO DAILY [facility] Last Admin: 07/28/18 08:46 Dose: 20 mg Finasteride (Proscar) 5 mg PO DAILY [facility] Last Admin: 07/28/18 08:46 Dose: 5 mg Fish Oil (Fish Oil) 1 gm PO DAILY [facility] Last Admin: 07/28/18 08:47 Dose: 1 gm Hydralazine HCl (Apresoline) 10 mg IVPUSH Q4H PRN PRN Reason: Hypertension Hydrochlorothiazide (Hydrochlorothiazide) 12.5 mg PO BIDDIURETIC [facility] Last Admin: 07/28/18 06:59 Dose: 12.5 mg Hydromorphone HCl (Dilaudid) 0.25 mg IVPUSH Q2H PRN PRN Reason: Pain (severe 7-10) Levothyroxine Sodium (Synthroid) 88 mcg PO ACBREAKFAST [facility] Last Admin: 07/28/18 06:59 Dose: 88 mcg Loperamide HCl (Imodium) 2 mg PO Q6H PRN PRN Reason: Diarrhea Last Admin: 07/26/18 13:57 Dose: 2 mg Lorazepam (Ativan) 2 mg IVPUSH Q4H PRN PRN Reason: Seizures Magnesium Sulfate (Pharmacy To Dose - Magnesium Replacement) 0 dose .XX ASDIRECTED PRN PRN Reason: RX TO WATCH MAG Metoprolol Tartrate (Lopressor) 5 mg IVPUSH Q4H PRN PRN Reason: Tachycardia Last Admin: 07/24/18 07:03 Dose: 5 mg Metoprolol Tartrate (Lopressor) 75 mg PO Q12H [facility] Last Admin: 07/28/18 08:46 Dose: 75 mg Midodrine (Midodrine) 5 mg PO TIDAC PRN PRN Reason: Hypotension Multivitamins (Thera) 1 each PO DAILY [facility] Last Admin: 07/28/18 08:45 Dose: 1 each Ondansetron HCl (Zofran) 4 mg IV Q6H PRN PRN Reason: Nausea/Vomiting Last Admin: 07/24/18 08:24 Dose: 4 mg Polyethylene Glycol (Miralax) 17 gm PO DAILY PRN PRN Reason: Constipation Potassium Chloride (Pharmacy To Dose - Potassium Replacement) 0 dose .XX ASDIRECTED PRN PRN Reason: RX TO WATCH K Rosuvastatin Calcium (Crestor) 10 mg PO BEDTIME [facility] Last Admin: 07/27/18 20:09 Dose: 10 mg Saccharomyces Boulardii (Florastor) 500 mg PO BID [facility] Last Admin: 07/28/18 08:46 Dose: 500 mg Senna/Docusate Sodium (Senna Plus) 1 tab PO BID PRN PRN Reason: Constipation Tamsulosin HCl (Flomax) 0.4 mg PO BIDPC [facility] Last Admin: 07/28/18 08:46 Dose: 0.4 mg Temazepam (Restoril) 7.5 mg PO BEDTIME PRN PRN Reason: Sleep Terazosin HCl (Hytrin) 4 mg PO BEDTIME [facility] Last Admin: 07/27/18 20:11 Dose: 4 mg Discontinued Medications Digoxin (Lanoxin) 250 mcg IVPUSH ONETIME ONE Stop: 07/26/18 01:26 Last Admin: 07/26/18 01:43 Dose: 250 mcg Digoxin (Lanoxin) 250 mcg IVPUSH Q6H [facility] Stop: 07/26/18 13:31 Last Admin: 07/26/18 13:30 Dose: 250 mcg Diltiazem HCl (Cardizem) 10 mg IVPUSH ONETIME ONE Stop: 07/23/18 16:19 Last Admin: 07/23/18 16:37 Dose: 10 mg Diltiazem HCl (Cardizem) 10 mg IVPUSH ONETIME ONE Stop: 07/23/18 17:07 Last Admin: 07/23/18 17:15 Dose: 10 mg Diltiazem HCl (Cardizem Cd) 180 mg PO DAILY [facility] Last Admin: 07/24/18 09:11 Dose: 180 mg Diltiazem HCl (Dilacor Xr) 240 mg PO DAILY [facility] Last Admin: 07/25/18 08:18 Dose: 240 mg Diltiazem HCl (Cardizem Cd) 120 mg PO DAILY [facility] Last Admin: 07/26/18 09:14 Dose: 120 mg Enoxaparin Sodium (Lovenox) 90 mg SUBCUT ONETIME ONE Stop: 07/23/18 16:32 Last Admin: 07/23/18 16:50 Dose: 90 mg Famotidine (Pepcid) 20 mg PO BID [facility] Last Admin: 07/26/18 09:13 Dose: 20 mg Furosemide (Lasix) 10 mg IVPUSH BIDDIURETIC KRISSY Stop: 07/25/18 14:01 Last Admin: 07/25/18 15:00 Dose: 10 mg Furosemide (Lasix) 10 mg IVPUSH NOW ONE Stop: 07/27/18 18:43 Last Admin: 07/27/18 19:29 Dose: 10 mg Hydrochlorothiazide (Hydrochlorothiazide) 12.5 mg PO BIDDIURETIC [facility] Last Admin: 07/26/18 13:32 Dose: 12.5 mg Nicardipine HCl 25 mg/ Sodium (Chloride) 260 mls @ 104 mls/hr IV ASDIRECTED [facility] Sodium Chloride (Normal Saline) 1,000 mls @ 75 mls/hr IV ASDIRECTED [facility] Last Admin: 07/24/18 05:38 Dose: 75 mls/hr Diltiazem HCl 125 mg/ Sodium (Chloride) 125 mls @ 10 mls/hr IV ASDIRECTED [facility] Last Infusion: 07/23/18 20:15 Dose: 0 mg/hr, 0 mls/hr Diltiazem HCl 125 mg/ Sodium (Chloride) 125 mls @ 15 mls/hr IV ASDIRECTED [facility] Last Infusion: 07/24/18 14:00 Dose: 0 mg/hr, 0 mls/hr Piperacillin Sod/Tazobactam (Sod 4.5 gm/ Sodium Chloride) 100 mls @ 200 mls/hr IV ONETIME ONE Stop: 07/24/18 12:29 Last Admin: 07/24/18 12:31 Dose: 200 mls/hr Piperacillin Sod/Tazobactam (Sod 4.5 gm/ Sodium Chloride) 100 mls @ 25 mls/hr IV Q8H [facility] Stop: 07/26/18 16:00 Last Admin: 07/26/18 11:53 Dose: 25 mls/hr Potassium Chloride/Sodium Chloride (Normal Saline With 20 Meq Kcl) 1,000 mls @ 125 mls/hr IV ASDIRECTED [facility] Last Admin: 07/26/18 23:11 Dose: 125 mls/hr Metoprolol Tartrate (Lopressor) 25 mg PO Q12H [facility] Last Admin: 07/24/18 08:24 Dose: 25 mg Metoprolol Tartrate (Lopressor) 50 mg PO Q12H [facility] Last Admin: 07/25/18 20:30 Dose: 50 mg Metoprolol Tartrate (Lopressor) 100 mg PO Q12H [facility] Last Admin: 07/26/18 02:22 Dose: Not Given Metoprolol Tartrate (Lopressor) 50 mg PO Q12H [facility] Last Admin: 07/27/18 20:11 Dose: 50 mg Metoprolol Tartrate (Lopressor) 25 mg PO ONETIME ONE Stop: 07/27/18 21:23 Last Admin: 07/27/18 22:11 Dose: 25 mg Midodrine (Midodrine) 5 mg PO NOW STA Stop: 07/23/18 21:36 Last Admin: 07/24/18 00:31 Dose: Not Given Naproxen (Naprosyn) 500 mg PO ONETIME ONE Stop: 07/24/18 11:35 Last Admin: 07/24/18 12:30 Dose: 500 mg Naproxen (Naprosyn) 375 mg PO Q12HR [facility] Last Admin: 07/26/18 09:10 Dose: 375 mg Non-Formulary Medication (Diclofenac Sodium [Voltaren 1% Gel]) 4 g TOP QID PRN PRN Reason: Pain Tamsulosin HCl (Flomax) 0.4 mg PO BIDPC KRISSY Tamsulosin HCl (Flomax) 0.4 mg PO ONETIME ONE Stop: 07/27/18 19:01 Last Admin: 07/27/18 19:29 Dose: 0.4 mg Terazosin HCl (Hytrin) 4 mg PO BEDTIME [facility] Last Admin: 07/24/18 20:43 Dose: Not Given - Exam General: Alert, Cooperative, No Acute Distress HEENT: Pupils Equal, Pupils Reactive, EOMI, Mucous Membr. Moist/[place] Neck: Supple Lungs: Clear to Auscultation, Normal Respiratory Effort Cardiovascular: Irregular Rhythm GI/Abdominal Exam: Normal Bowel Sounds, Soft, Non-Tender, No Organomegaly, No Distention, No Abnormal Bruit (Male) Exam: Other (indwelling garcia catheter with mild-moderately reddish colored urine) Extremities: Normal Inspection, Normal Range of Motion, Non-Tender, Normal Capillary Refill, Other (Right lower extremity: no more erythema but still has lingering edema, non pain and non-tender with palpation). No: Joint Swelling, Leg Pain, Increased Warmth, Mottled, Pallor, Redness Peripheral Pulses: 2+: Posterior Tibial (L), Posterior Tibial (R), Dorsalis Pedis (L), Dorsalis Pedis (R) Skin: Warm, Dry, Intact Neurological: No New Focal Deficit. No: Normal Gait Psy/Mental Status: Alert, Normal Affect, Normal Mood - Problem List Review Problem List Initiated/Reviewed/Updated: Yes - My Orders Last 24 Hours: My Active Orders 07/27/18 12:00 Digoxin [Lanoxin] 125 mcg PO DAILY@1200 07/27/18 21:00 Terazosin [Hytrin] 4 mg PO BEDTIME 07/27/18 23:05 Urinary Catheter Assessment [RC] 04,10,16,22 07/27/18 23:15 Insert Garcia Catheter [Insert Urinary Catheter] [OM.PC] Q24H 07/28/18 09:00 Metoprolol Tartrate [Lopressor] 75 mg PO Q12H Tamsulosin [Flomax] 0.4 mg PO BIDPC 07/31/18 09:00 Apixaban [Eliquis] 5 mg PO BID - Plan Plan:: I/P: Acute: A-flutter -HR noted to be 142 in ED; now fully controlled -12-lead EKG notes A-flutter with incomplete LBBB -Cardizem IVP given with no change; was switch to oral PO 240mg Cardizem but significantly affected his pressure; so he came off -Continue Metoprolol 75mg BID and Digoxin 125 mcg po daily -HR 60-70s at rest and 70-90s w/ with activity; had a one time spike in the teens this AM -Troponin negative -Pro-BNP 1789--1883-->2054 (not sure why increasing he is on lasix/hctz) -Echo 07/24/2018 report: LVEF 55-60%. NRWMA. Mild Aortic Valve Sclerosis w/o Stenosis (Essentially normal) -Eliquis 10 mg po BID for 7 days then 5 mg po BID thereafter -TSH WNL Peripheral Edema, Improved -2/2 DVT +/- Vascular Insufficiency (varicose veins noted on lower extremity) -Was bilateral lower extremity; now affected limb only -Continue Low dose HCTZ -Compression Stockings; discontinue NSAIDs due to slightly reduced renal function DVT, Stable -Noted pain and swelling of right leg -Reports Hx/o DVT- he believes right leg as well 2+ years ago; was reportedly on blood thinners but discontinued -D-dimer 9.82 -Physical exam shows erythema from medial calf up into groin; right sided leg swelling -1mg/kg Lovenox given in ED x1 now on Eliquis treatment protocol -Right LE US shows thrombus within the right common femoral vein, superficial femoral vein, and popliteal veins. Also lower externally subcutaneous edema. -Oxygen saturations have remained high -Now off Naprosyn 325mg Q12H for anti-inflammatory agent -Discontinued IV Zosyn for empiric treatment for thrombophlebitis; now only for Doxy 100 mg po BID--> d/c in AM -No leukocytosis -Dr. Monroy discussed case briefly with Dr. Pantoja, general surgeon, who did examine the leg and was not concerned; offered NSAIDS and Antibiotics. Severe Urinary Retention -Carries hx/o BPH -D/c's Hytrin due to hypotension when we had him on Cardizem at the same time -Had 1500ml of urine output with straight cath last night -Has had numerous bladder scan with bladder urine > 600; Straight caths: 1500--> 900-->600-->700 -Has had multiple bathroom breaks for urinary urgency -Had garcia catheter placed in last night; need urology referral Resolved: S/p UTI -Reports increased frequency and nocturia -UA: Turbid with 2+ protein, 2+ occult blood, 3+ leuk esterase, WBCs too numerous to count. -UC shows 2/2 Entero-coccus -Discontinue IV Zosyn; pharmacy to start Doxy 100 mg po BID ; completed treatment -IV fluids as ordered S/p Loose Diarrhea -C. Diff screening negative -Supportive care -PRN anti-motility agent Chronic: Hx/o DVT HLD HTN Diverticulosis GERD BPH Hypothyroidism Memory Impairment Plan: He is essentially the same Continue current treatment Routine AM Labs Other orders as above CM/SW for d/c planning DVT prophylaxis: On Eliquis Code status: Full code; PCP: Dr. Arteaga Discharge tomorrow
[2018-07-28] MEDS: Digoxin 125 MCG Tab PO SCH (11:41)
[2018-07-28] MEDS ORDERED: Tamsulosin 0.4 MG Cap.ER PO ONE (18:51)
[2018-07-28] MEDS: Rosuvastatin 10 MG Tab PO SCH (20:28)
[2018-07-29] MEDS: Levothyroxine 88 MCG Tab PO SCH (06:06)
[2018-07-29] MEDS: Hydrochlorothiazide 12.5 MG Cap PO SCH ×2 (06:07→13:37)
[2018-07-29] MEDS: Apixaban 5 MG Tab PO SCH (08:36)
[2018-07-29] MEDS: Saccharomyces Boulardii (Probiotic) 250 MG Cap PO SCH (08:36)
[2018-07-29] MEDS: Fish Oil/Omega-3 Fatty Acids 1 Gm Cap PO SCH (08:36)
[2018-07-29] MEDS: Doxycycline 100 MG Cap PO SCH (08:36)
[2018-07-29] MEDS: Cholecalciferol (Vitamin D3) 1,000 Unit Tab PO SCH (08:37)
[2018-07-29] MEDS: Metoprolol Tartrate 25 MG Tab PO SCH (08:37)
[2018-07-29] MEDS: Multivitamins,Therapeutic Tab PO SCH (08:38)
[2018-07-29] MEDS: Finasteride 5 MG Tab PO SCH (08:38)
[2018-07-29] MEDS: Famotidine 20 MG Tab PO SCH (08:38)
[2018-07-29] MEDS: Tamsulosin 0.4 MG Cap.ER PO SCH (08:38)
--- NOTE | 2018-07-29 08:38 | PCM.DCSUM1 ---
Discharge Summary - Hospital Course HPI Initial Comments: Maxi Santamaria is an 88 yo who presented to our ED on the evening of 07/23/18 with bilateral leg pain. He is accompanied by his daughter. Reports he has had increasing pain in his right lower extremity over the past 3-4 days. He reports heavy like a piece of lead notes very difficult to walk. Reports he had a previous DVT and he thinks that that was in his right lower extremity as well. Reports pain is equal above and below the knee. Denies any chest pain but states he is a little more short of breath than normal. He does report a cough and brings up a little bit of white sputum. He is noted to have a heart rate of 140 and appears to be in atrial flutter. He also reports he feels a little dizzy. States he does do a lot of sitting and has not been moving too much around the house due to weather. No recent changes in his medication. In the ED twelve-lead EKG is obtained showing a flutter rate of 141. There is right axis deviation and incomplete left bundle branch block. ST segment appears very depressed and V3 to V6 and a QTC is prolonged however it is noted that this is likely inaccurate. Temperature was 36.2 Celsius. Pulse 142. Respirations 20. Blood pressure 131/69. Pulse ox 96%. Labs are obtained: WBC normal at 5.79. Hemoglobin 12.1. Hematocrit 37.2. He is macrocytic. Reports a good at 216,000. Neutrophils are elevated at 72%. Band neutrophils were 0. PT is 12.3. INR 1.13. APTT 27. Sodium was 139. Potassium 4.4. Chloride 106. Lanoxin 25. Anion gap 12.4. BUN is 20. Creatinine 1.1. EGFR greater than 60. Glucose is 114. Calcium 9.0. Magnesium 2.1. Bilirubin 0.5. AST is 14, ALT 27, alkaline phosphatase 75. CK-MB is 1.4. Troponin is less than 0.017. CRP is 4.4. Protein 6.5. Albumin 2.7. ESR is 18. D-dimer is very high at 9.82. ProBNP is 1789. TSH is normal at 1.793. He is given IV push diltiazem with minimal response and then started on a Cardizem drip. He is given 1 mg/kg Lovenox. He is also started on nicardipine. Venous Doppler ultrasound was obtained of the right extremity showing "extensive deep venous thrombosis within the right common femoral vein, superficial femoral vein, and popliteal veins." Lower extremity subcutaneous edema is also noted. Chest x- rays obtained showing incidental findings and nothing acute. Reduction saturations remained 90-99% is unlikely he is having a PE as well. He carries a history of: DVT, HLD, hypertension, diverticulosis, GERD, BPH, hypothyroidism. He is a full code. His PCP is Dr. Arteaga. Diagnosis: Stroke: No Modified Yaya Scale: No Symptoms at All Modified Pickaway Scale Score: 0 - Discharge Data Discharge Date: 07/29/18 (Admit date: 07/23/18) Discharge Disposition: Home, Self-Care 01 Condition: Good - Discharge Diagnosis/Problem(s) (1) Atrial flutter with rapid ventricular response SNOMED Code(s): 5889309 ICD Code: I48.92 - UNSPECIFIED ATRIAL FLUTTER Status: Resolved Priority: High (2) Dvt femoral (deep venous thrombosis) SNOMED Code(s): 733217239 ICD Code: I82.419 - ACUTE EMBOLISM AND THROMBOSIS OF UNSPECIFIED FEMORAL VEIN Status: Acute Priority: High Qualifiers: Chronicity: acute Laterality: right Qualified Code(s): I82.411 - Acute embolism and thrombosis of right femoral vein (3) Venous insufficiency of both lower extremities SNOMED Code(s): 584979745 ICD Code: I87.2 - VENOUS INSUFFICIENCY (CHRONIC) (PERIPHERAL) Status: Acute Priority: High (4) UTI (urinary tract infection) SNOMED Code(s): 82523381 ICD Code: N39.0 - URINARY TRACT INFECTION, SITE NOT SPECIFIED Status: Acute Priority: High Qualifiers: Urinary tract infection type: acute cystitis Hematuria presence: without hematuria Qualified Code(s): N30.00 - Acute cystitis without hematuria (5) Urinary retention SNOMED Code(s): 002189078 ICD Code: R33.9 - RETENTION OF URINE, UNSPECIFIED Status: Acute Priority : High - Patient Summary/Data Consults: Consultations 07/23/18 18:21 Consult to Case Management/Platen Press Operator [CONS] Routine Consult to Spiritual Care [CONS] Routine OT Evaluation and Treatment [CONS] Routine PT Evaluation and Treatment [CONS] Routine Labs Pending at D/C: None Recommended Follow-up Testing/Procedures: Follow-up with PCP within 1 week of discharge. Follow-up with urology as scheduled. Hospital Course: I/P: Acute: A-flutter -HR noted to be 142 in ED; now fully controlled -12-lead EKG notes A-flutter with incomplete LBBB -Cardizem IVP given with no change; was switch to oral PO 240mg Cardizem but significantly affected his pressure; so he came off -Continue Metoprolol 75mg BID and Digoxin 125 mcg po daily -HR 60-70s at rest and 70-90s w/ with activity; had a one time spike in the teens this AM -Troponin negative -Pro-BNP 1788--1883-->2054 (not sure why increasing he is on lasix/hctz) -Echo 07/24/2018 report: LVEF 55-60%. NRWMA. Mild Aortic Valve Sclerosis w/o Stenosis (Essentially normal) -Eliquis 10 mg po BID for 7 days then 5 mg po BID thereafter -TSH WNL Peripheral Edema, Improved -2/2 DVT +/- Vascular Insufficiency (varicose veins noted on lower extremity) -Was bilateral lower extremity; now affected limb only -Continue Low dose HCTZ -Compression Stockings; discontinue NSAIDs due to slightly reduced renal function DVT, Stable -Noted pain and swelling of right leg -Reports Hx/o DVT- he believes right leg as well 2+ years ago; was reportedly on blood thinners but discontinued -D-dimer 9.82 -Physical exam shows erythema from medial calf up into groin; right sided leg swelling -1mg/kg Lovenox given in ED x1 now on Eliquis treatment protocol -Right LE US shows thrombus within the right common femoral vein, superficial femoral vein, and popliteal veins. Also lower externally subcutaneous edema. -Oxygen saturations have remained high -Now off Naprosyn 325mg Q12H for anti-inflammatory agent -Discontinued IV Zosyn for empiric treatment for thrombophlebitis; now only for Doxy 100 mg po BID--> d/c in AM -No leukocytosis -Dr. Monroy discussed case briefly with Dr. Pantoja, general surgeon, who did examine the leg and was not concerned; offered NSAIDS and Antibiotics. Severe Urinary Retention -Carries hx/o BPH -D/c's Hytrin due to hypotension when we had him on Cardizem at the same time -Had 1500ml of urine output with straight cath last night -Has had numerous bladder scan with bladder urine > 600; Straight caths: 1500--> 900-->600-->700 -Has had multiple bathroom breaks for urinary urgency -Had garcia catheter placed in last night; need urology referral Resolved: S/p UTI -Reports increased frequency and nocturia -UA: Turbid with 2+ protein, 2+ occult blood, 3+ leuk esterase, WBCs too numerous to count. -UC shows 2/2 Entero-coccus -Discontinue IV Zosyn; pharmacy to start Doxy 100 mg po BID ; completed treatment -IV fluids as ordered S/p Loose Diarrhea -C. Diff screening negative -Supportive care -PRN anti-motility agent Chronic: Hx/o DVT HLD HTN Diverticulosis GERD BPH Hypothyroidism Memory Impairment Plan: He is essentially the same Continue current treatment Routine AM Labs Other orders as above CM/SW for d/c planning DVT prophylaxis: On Eliquis Code status: Full code; PCP: Dr. Arteaga, Dr. Weston with the [facility]. Maxi was admitted to the ICU with a DVT and a flutter with RVR. He was started on a Cardizem drip although this negatively affected his pressures so he was taken off of it. He was switched to by mouth medications including digoxin and metoprolol with good results. Heart rate has been controlled. He remains in a flutter. Echo was obtained as above. He was also noted to have significant right leg swelling and a DVT per ultrasound above. He was started on 10 mg twice a day Elequis. There was some concern over developing thrombophlebitis so he was started on Zosyn IV and 325 mg every 12 hours and Naprosyn. This was transitioned to Doxy 100 mg twice a day as the patient was found to have a UTI. Urine culture grew out enterococcus Faecalis. He completed treatment here and this was stopped. He was noted to have some diarrhea which was likely due to antibiotics. C. difficile was negative and he did receive a probiotic. His leg was wrapped and elevated and this did improve his edema. Pain was also noted to resolve. While here he was noted to have significant urinary retention with multiple bladder scans being performed. Multiple attempts were made for straight cathetering however symptoms did not resolve. Hytrin, alpha-linn, and finasteride were all attempted with no success. Ultimately a Garcia was placed. There was some bleeding noted in his urine and this is likely secondary to trauma from multiple straight cathetering attempts. He does have known BPH. An urology appointment has been made 2 weeks from discharge and he will be discharged on a Garcia catheter. Unfortunately because he has a Garcia catheter he will be unable to return to [facility] as they do not have services available to maintain this. Family was updated on this and decision was made to instead discharge patient to [facility]. Paperwork was completed and ultimately he was accepted. Dr. Monroy put in discharge medications. He will be discharged on 3 more doses of 10 mg by mouth twice a day Eliquis, which will complete his 7 days of acute DVT treatment. He will then transition to 5 mg by mouth twice a day Eliquis was from thereon out. He'll also be discharged on 125 g by mouth daily digoxin , 75 mg by mouth twice a day metoprolol tartrate, and 0.4 mg by mouth twice a day Flomax. As noted prior he will follow-up with urology regarding his indwelling catheter. Family requested we seek a urologist in [place] as he will be unable to make the drive to [facility] for [facility]. He was instructed to follow- up with his primary care provider within one week of discharge, sooner if need. - Patient Instructions Diet: Heart Healthy Diet, Usual Diet as Tolerated, Low Sodium Activity: As Tolerated Driving: Do Not Drive Showering/Bathing: May Shower Notify Provider of: Fever, Increased Pain, Swelling and Redness, Nausea and/or Vomiting Other/Special Instructions: - Please take all new medications as directed. - Continue all home medications and routine activities as tolerated. - Recommend digoxin level check through your family doctor's office by Sunday on 2018. - Check vitals (BP & HR) and follow parameters before you take blood pressure pills. - Use compression stocking daily until follow up appointment with your family doctor. - Call your family doctor for any questions or concerns after discharge. - Follow up with PCP in 1 week. - Recommend outpatient urology evaluation for acute urinary retention. - Come back or seek immediate care should your symptoms persist or get worse - Discharge Plan *PRESCRIPTION DRUG MONITORING PROGRAM REVIEWED*: Not Applicable *COPY OF PRESCRIPTION DRUG MONITORING REPORT IN PATIENT YOUNG: Not Applicable Prescriptions/Med Rec: Apixaban [Eliquis] 10 mg PO BID #3 tablet Apixaban [Eliquis] 5 mg PO BID #60 tablet Digoxin 125 mcg PO DAILY #30 tablet Metoprolol Tartrate 75 mg PO BID #60 tablet Tamsulosin [Flomax] 0.4 mg PO BIDPC #30 cap.er Home Medications: Home Meds Finasteride 5 mg PO DAILY 12/21/16 [History] Fish Oil/DHA/EPA [Fish Oil 1,200 MG] 1 each PO DAILY 12/21/16 [History] Levothyroxine [Synthroid] 88 mcg PO ACBREAKFAST 12/21/16 [History] atorvaSTATin [Lipitor] 40 mg PO BEDTIME 12/21/16 [History] Cholecalciferol (Vitamin D3) [Vitamin D3] 2,000 unit PO DAILY 07/23/18 [History] Diclofenac Sodium [Voltaren 1% Gel] 1 applic TOP QID PRN 07/23/18 [History] Multivitamin/Opth Areds 1 tab PO DAILY 07/23/18 [History] Apixaban [Eliquis] 5 mg PO BID #60 tablet 07/29/18 [Rx] Apixaban [Eliquis] 10 mg PO BID #3 tablet 07/29/18 [Rx] Digoxin 125 mcg PO DAILY #30 tablet 07/29/18 [Rx] Metoprolol Tartrate 75 mg PO BID #60 tablet 07/29/18 [Rx] Tamsulosin [Flomax] 0.4 mg PO BIDPC #30 cap.er 07/29/18 [Rx] Terazosin [Hytrin] 4 mg PO BEDTIME #30 07/29/18 [Rx] Patient Handouts: Atrial Flutter, Urinary Tract Infection, Adult, [id number] , Indwelling Urinary Catheter Care, Adult, [id number], Chronic Venous Insufficiency, Acute Urinary Retention, Male, Iief-[id number], Diarrhea, Adult, [id number], Deep Vein Thrombosis Referrals: Norman Umana MD [Physician] - 08/12/18 2:00 pm (Urology. Arrive by 1:30 p.m. [facility], 12:30 p.m. MST for checkin. Appointment is at 2:00 p.m. Bring insurance card and current medication information. [facility] will request a referral to Urology in [place] to possibly cover this appointment cost.) Brooks Arteaga MD [Primary Care Provider] - 08/06/18 7:45 am Lorenza Weston MD [Physician] - 08/07/18 12:30 pm ([facility]. -Schedule this follow-up appointment within 1-2 weeks. -Follow-up and ask about outpatient physical therapy versus an orthopedic consult for knee problems. -Follow-up to request new prescriptions be ordered by Dr Weston so the [facility] covers these. -Urology consult for urinary retention.) - Discharge Summary/Plan Comment DC Time >30 min.: Yes (60 minutes) - General Info Date of Service: 07/29/18 Admission Dx/Problem (Free Text: Admission Diagnosis/Problem Admission Diagnosis/Problem Atrial flutter with rapid ventricular response Subjective Update: Into see Maxi. Family is at bedside. He is lying in bed with no complaints. He does have JAREN hose on his right leg. Swelling is greatly improved. He has no concerns or complaints although he is somewhat confused. Family has no concerns. They're updated on discharge plan and are in agreement. No nursing concerns. He will be discharged today. Functional Status: Reports: Pain Controlled, Tolerating Diet, Ambulating, Urinating (garcia in place). Denies: New Symptoms - Review of Systems General: Reports: No Symptoms. Denies: Fever, Weakness, Fatigue, Malaise, Chills HEENT: Reports: No Symptoms. Denies: Headaches, Sore Throat Pulmonary: Reports: No Symptoms. Denies: Shortness of Breath, Pleuritic Chest Pain, Cough, Sputum, Wheezing Cardiovascular: Reports: Edema (Right leg but improving ). Denies: Chest Pain, Palpitations, Dyspnea on Exertion, Orthopnea Gastrointestinal: Reports: No Symptoms. Denies: Abdominal Pain, Constipation, Diarrhea, Nausea, Vomiting Genitourinary: Reports: No Symptoms. Denies: Pain Musculoskeletal: Reports: No Symptoms. Denies: Leg Pain Skin: Reports: No Symptoms. Denies: Cyanosis Neurological: Reports: Confusion (baseline ). Denies: Trouble Speaking, Difficulty Walking, Weakness, Gait Disturbance Psychiatric: Reports: No Symptoms - Patient Data Vitals - Most Recent: Last Vital Signs Temp 97.7 F 07/29/18 03:32 Pulse 67 07/29/18 03:32 Resp 16 07/29/18 03:32 BP 128/63 07/29/18 03:32 Pulse Ox 94 L 07/29/18 03:32 Weight - Most Recent: 175 lb I&O - Last 24 hours: Intake & Output 07/28/18 07/29/18 07/29/18 22:59 06:59 14:59 Intake Total 460 150 Output Total 650 1150 Balance -190 -1000 Lab Results - Last 24 hrs: Laboratory Results - last 24 hr 07/29/18 Range/Units 05:38 Sodium 137 (136-145) mEq/L Potassium 4.1 (3.5-5.1) mEq/L Chloride 105 (98-107) mEq/L Carbon Dioxide 25 (21-32) mEq/L Anion Gap 11.1 (5-15) BUN 17 (7-18) mg/dL Creatinine 0.8 (0.7-1.3) mg/dL Est Cr Clr Drug Dosing 70.59 mL/min Estimated GFR (MDRD) > 60 (>60) mL/min BUN/Creatinine Ratio 21.3 H (14-18) Glucose 113 (83-115) mg/dL Calcium 9.4 (8.5-10.1) mg/dL Magnesium 1.6 L (1.8-2.4) mg/dl Med Orders - Current: Current Medications Acetaminophen (Tylenol) 650 mg PO Q4H PRN PRN Reason: Pain (Mild 1-3)/fever Hydrocodone Bitart/Acetaminophen ([place] 325-5 Mg) 1 tab PO Q4H PRN PRN Reason: Pain (moderate 4-6) Albuterol/Ipratropium (Duoneb 3.0-0.5 Mg/3 Ml) 3 ml NEB Q4H PRN PRN Reason: Shortness Of Breath/wheezing Apixaban (Eliquis) 10 mg PO BID [facility] Stop: 07/30/18 21:01 Last Admin: 07/28/18 20:27 Dose: 10 mg Apixaban (Eliquis) 5 mg PO BID [facility] Bisacodyl (Dulcolax) 5 mg PO DAILY PRN PRN Reason: Constipation Cholecalciferol (Vitamin D3) 2,000 units PO DAILY [facility] Last Admin: 07/28/18 08:47 Dose: 2,000 units Diclofenac Sodium (Voltaren 1% Gel) 4 gm TOP QID PRN PRN Reason: Pain Digoxin (Lanoxin) 125 mcg PO DAILY@1200 [facility] Last Admin: 07/28/18 11:41 Dose: 125 mcg Docusate Sodium (Colace) 100 mg PO BID PRN PRN Reason: Constipation Doxycycline Hyclate (Vibramycin) 100 mg PO BID [facility] Last Admin: 07/28/18 20:28 Dose: 100 mg Famotidine (Pepcid) 20 mg PO DAILY [facility] Last Admin: 07/28/18 08:46 Dose: 20 mg Finasteride (Proscar) 5 mg PO DAILY [facility] Last Admin: 07/28/18 08:46 Dose: 5 mg Fish Oil (Fish Oil) 1 gm PO DAILY [facility] Last Admin: 07/28/18 08:47 Dose: 1 gm Hydralazine HCl (Apresoline) 10 mg IVPUSH Q4H PRN PRN Reason: Hypertension Hydrochlorothiazide (Hydrochlorothiazide) 12.5 mg PO BIDDIURETIC [facility] Last Admin: 07/29/18 06:07 Dose: 12.5 mg Hydromorphone HCl (Dilaudid) 0.25 mg IVPUSH Q2H PRN PRN Reason: Pain (severe 7-10) Levothyroxine Sodium (Synthroid) 88 mcg PO ACBREAKFAST [facility] Last Admin: 07/29/18 06:06 Dose: 88 mcg Loperamide HCl (Imodium) 2 mg PO Q6H PRN PRN Reason: Diarrhea Last Admin: 07/26/18 13:57 Dose: 2 mg Lorazepam (Ativan) 2 mg IVPUSH Q4H PRN PRN Reason: Seizures Magnesium Sulfate (Pharmacy To Dose - Magnesium Replacement) 0 dose .XX ASDIRECTED PRN PRN Reason: RX TO WATCH MAG Metoprolol Tartrate (Lopressor) 5 mg IVPUSH Q4H PRN PRN Reason: Tachycardia Last Admin: 07/24/18 07:03 Dose: 5 mg Metoprolol Tartrate (Lopressor) 75 mg PO Q12H [facility] Last Admin: 07/28/18 20:28 Dose: 75 mg Midodrine (Midodrine) 5 mg PO TIDAC PRN PRN Reason: Hypotension Multivitamins (Thera) 1 each PO DAILY [facility] Last Admin: 07/28/18 08:45 Dose: 1 each Ondansetron HCl (Zofran) 4 mg IV Q6H PRN PRN Reason: Nausea/Vomiting Last Admin: 07/24/18 08:24 Dose: 4 mg Polyethylene Glycol (Miralax) 17 gm PO DAILY PRN PRN Reason: Constipation Potassium Chloride (Pharmacy To Dose - Potassium Replacement) 0 dose .XX ASDIRECTED PRN PRN Reason: RX TO WATCH K Rosuvastatin Calcium (Crestor) 10 mg PO BEDTIME [facility] Last Admin: 07/28/18 20:28 Dose: 10 mg Saccharomyces Boulardii (Florastor) 500 mg PO BID [facility] Last Admin: 07/28/18 20:27 Dose: 500 mg Senna/Docusate Sodium (Senna Plus) 1 tab PO BID PRN PRN Reason: Constipation Tamsulosin HCl (Flomax) [facility] Last Admin: 07/28/18 17:04 Dose: 0.4 mg Temazepam (Restoril) 7.5 mg PO BEDTIME PRN PRN Reason: Sleep Terazosin HCl (Hytrin) 4 mg PO BEDTIME [facility] Last Admin: 07/28/18 20:27 Dose: 4 mg Discontinued Medications Digoxin (Lanoxin) 250 mcg IVPUSH ONETIME ONE Stop: 07/26/18 01:26 Last Admin: 07/26/18 01:43 Dose: 250 mcg Digoxin (Lanoxin) 250 mcg IVPUSH Q6H [facility] Stop: 07/26/18 13:31 Last Admin: 07/26/18 13:30 Dose: 250 mcg Diltiazem HCl (Cardizem) 10 mg IVPUSH ONETIME ONE Stop: 07/23/18 16:19 Last Admin: 07/23/18 16:37 Dose: 10 mg Diltiazem HCl (Cardizem) 10 mg IVPUSH ONETIME ONE Stop: 07/23/18 17:07 Last Admin: 07/23/18 17:15 Dose: 10 mg Diltiazem HCl (Cardizem Cd) 180 mg PO DAILY [facility] Last Admin: 07/24/18 09:11 Dose: 180 mg Diltiazem HCl (Dilacor Xr) 240 mg PO DAILY [facility] Last Admin: 07/25/18 08:18 Dose: 240 mg Diltiazem HCl (Cardizem Cd) 120 mg PO DAILY [facility] Last Admin: 07/26/18 09:14 Dose: 120 mg Enoxaparin Sodium (Lovenox) 90 mg SUBCUT ONETIME ONE Stop: 07/23/18 16:32 Last Admin: 07/23/18 16:50 Dose: 90 mg Famotidine (Pepcid) 20 mg PO BID [facility] Last Admin: 07/26/18 09:13 Dose: 20 mg Furosemide (Lasix) 10 mg IVPUSH BIDDIURETIC [facility] Stop: 07/25/18 14:01 Last Admin: 07/25/18 15:00 Dose: 10 mg Furosemide (Lasix) 10 mg IVPUSH NOW ONE Stop: 07/27/18 18:43 Last Admin: 07/27/18 19:29 Dose: 10 mg Hydrochlorothiazide (Hydrochlorothiazide) 12.5 mg PO BIDDIURETIC [facility] Last Admin: 07/26/18 13:32 Dose: 12.5 mg Nicardipine HCl 25 mg/ Sodium (Chloride) 260 mls @ 104 mls/hr IV ASDIRECTED KRISSY Sodium Chloride (Normal Saline) 1,000 mls @ 75 mls/hr IV ASDIRECTED [facility] Last Admin: 07/24/18 05:38 Dose: 75 mls/hr Diltiazem HCl 125 mg/ Sodium (Chloride) 125 mls @ 10 mls/hr IV ASDIRECTED [facility] Last Infusion: 07/23/18 20:15 Dose: 0 mg/hr, 0 mls/hr Diltiazem HCl 125 mg/ Sodium (Chloride) 125 mls @ 15 mls/hr IV ASDIRECTED [facility] Last Infusion: 07/24/18 14:00 Dose: 0 mg/hr, 0 mls/hr Piperacillin Sod/Tazobactam (Sod 4.5 gm/ Sodium Chloride) 100 mls @ 200 mls/hr IV ONETIME ONE Stop: 07/24/18 12:29 Last Admin: 07/24/18 12:31 Dose: 200 mls/hr Piperacillin Sod/Tazobactam (Sod 4.5 gm/ Sodium Chloride) 100 mls @ 25 mls/hr IV Q8H [facility] Stop: 07/26/18 16:00 Last Admin: 07/26/18 11:53 Dose: 25 mls/hr Potassium Chloride/Sodium Chloride (Normal Saline With 20 Meq Kcl) 1,000 mls @ 125 mls/hr IV ASDIRECTED [facility] Last Admin: 07/26/18 23:11 Dose: 125 mls/hr Metoprolol Tartrate (Lopressor) 25 mg PO Q12H [facility] Last Admin: 07/24/18 08:24 Dose: 25 mg Metoprolol Tartrate (Lopressor) 50 mg PO Q12H [facility] Last Admin: 07/25/18 20:30 Dose: 50 mg Metoprolol Tartrate (Lopressor) 100 mg PO Q12H [facility] Last Admin: 07/26/18 02:22 Dose: Not Given Metoprolol Tartrate (Lopressor) 50 mg PO Q12H [facility] Last Admin: 07/27/18 20:11 Dose: 50 mg Metoprolol Tartrate (Lopressor) 25 mg PO ONETIME ONE Stop: 07/27/18 21:23 Last Admin: 07/27/18 22:11 Dose: 25 mg Midodrine (Midodrine) 5 mg PO NOW STA Stop: 07/23/18 21:36 Last Admin: 07/24/18 00:31 Dose: Not Given Naproxen (Naprosyn) 500 mg PO ONETIME ONE Stop: 07/24/18 11:35 Last Admin: 07/24/18 12:30 Dose: 500 mg Naproxen (Naprosyn) 375 mg PO Q12HR [facility] Last Admin: 07/26/18 09:10 Dose: 375 mg Non-Formulary Medication (Diclofenac Sodium [Voltaren 1% Gel]) 4 g TOP QID PRN PRN Reason: Pain Tamsulosin HCl (Flomax) 0.4 mg [facility] Tamsulosin HCl (Flomax) 0.4 mg PO ONETIME ONE Stop: 07/27/18 19:01 Last Admin: 07/27/18 19:29 Dose: 0.4 mg Terazosin HCl (Hytrin) 4 mg PO BEDTIME [facility] Last Admin: 07/24/18 20:43 Dose: Not Given - Exam Quality Assessment: Reports: Urine Catheter (reddish colored urine ), DVT Prophylaxis General: Reports: Alert, Cooperative, No Acute Distress. Denies: Oriented HEENT: Reports: Pupils Equal, Pupils Reactive, EOMI, Mucous Membr. Moist/[place] Neck: Reports: Supple, Trachea Midline, No JVD Lungs: Reports: Clear to Auscultation, Normal Respiratory Effort Cardiovascular: Reports: Regular Rate, Irregular Rhythm GI/Abdominal Exam: Normal Bowel Sounds, Soft, Non-Tender, No Organomegaly, No Distention (Male) Exam: Deferred Rectal (Males) Exam: Deferred Back Exam: Reports: Normal Inspection, Full Range of Motion Extremities: Normal Range of Motion, Non-Tender, Normal Capillary Refill, Pedal Edema (Right sided ). No: Leg Pain, Increased Warmth, Redness Skin: Reports: Warm, Dry, Intact Neurological: Reports: No New Focal Deficit Psy/Mental Status: Reports: Alert
[2018-07-29] MEDS ORDERED: Magnesium Oxide 400 MG Tab PO ONE (10:00)
[2018-07-29] MEDS: Digoxin 125 MCG Tab PO SCH ×2 (10:30→11:09)
[2018-07-29] MEDS ORDERED: Magnesium Sulfate/Water 2 GM in Premix Bag 1 BAG IV ONE (11:30)
[2018-07-29 12:00] VITALS: BP 104/65
[2018-07-31] MEDS ORDERED: Apixaban 5 MG Tab PO SCH (09:00)
== END 2018-07-29 14:45 | disposition home or self-care (01) | DRG 300 ==
LOC: JD.ED 15:44 → JD.ICU 18:27 → JD.MS 07-26 05:25
PROVIDERS: ADMIT Internal Medicine; ATTEND Internal Medicine
DX: I82.411 Acute embolism and thrombosis of right femoral vein (principal); I48.92 Unspecified atrial flutter; N30.00 Acute cystitis without hematuria; B95.2 Enterococcus as the cause of diseases classified elsewhere; I82.431 Acute embolism and thrombosis of right popliteal vein; E78.5 Hyperlipidemia, unspecified; E78.00 Pure hypercholesterolemia, unspecified; I50.9 Heart failure, unspecified; I11.0 Hypertensive heart disease with heart failure; K21.9 Gastro-esophageal reflux disease without esophagitis; E03.9 Hypothyroidism, unspecified; I87.2 Venous insufficiency (chronic) (peripheral); N40.1 Benign prostatic hyperplasia with lower urinary tract symptoms; R33.8 Other retention of urine; R35.1 Nocturia; I44.7 Left bundle-branch block, unspecified; R19.7 Diarrhea, unspecified; K57.90 Diverticulosis of intestine, part unspecified, without perforation or abscess without bleeding; H54.7 Unspecified visual loss; Z87.891 Personal history of nicotine dependence; Z86.718 Personal history of other venous thrombosis and embolism; Z79.899 Other long term (current) drug therapy; Z79.890 Hormone replacement therapy
CPT/HCPCS: 36415; 51701; 51702; 51798; 71045; 71045-26; 80048; 80053; 81001; 82306; 82553; 82607; 82746; 83735; 83880; 84443; 84484; 85007; 85025; 85027; 85379; 85610; 85652; 85730; 86140; 87086; 87088; 87186; 87493; 93005; 93010; 93306; 93971-26-RT; 93971-RT; 96365; 96366; 96372; 96376; 97110-GP; 97112-GP; 97116-GP; 97162-GP; 97165-GO; 97530-GO; 99285; 99285-25; A9270-GY; J1160; J1650; J2405; J2543; J3475; J3480; J3490; J7030; J7040

== ENCOUNTER 2019-11-27 05:19 | Inpatient (IN) | payer OTHER, MEDICARE, BC ==
--- NOTE | 2019-11-27 05:24 | EDM.PDOC ---
ED HPI GENERAL MEDICAL PROBLEM - General Stated Complaint: [facility] Time Seen by Provider: 11/27/19 05:19 Source of Information: Reports: EMS History Limitations: Reports: Physical Impairment (Underlying dementia) - History of Present Illness INITIAL COMMENTS - FREE TEXT/NARRATIVE: A trauma alert was called for this patient due to the patient being on Eliquis. Mr. Santamaria is a very pleasant 89-year-old gentleman, a resident of [facility], who is now brought to the ED by EMS with a report that he "fell and hit his head, and had points of unresponsiveness". [facility] staff had indicated that the patient may have fallen around 03:00 this morning, but it is our understanding that he was found on the floor, and that the fall itself was not witnessed. EMS reports to us that the patient was up by the time they got there. They noticed that he has a contusion to his right anterior scalp. He appeared to be otherwise uninjured. Staff at [facility] indicated that the patient's BP was depressed at 78/46 with a HR of 109 bpm, however, EMS found his BP to be in the 150s, with a tachycardia of about 110 bpm. They report that he appeared to be in atrial fibrillation with RVR on her monitor. Although his oxygen saturation was 93% on room air, he was placed on 3 L of oxygen per nasal cannula. Unfortunately, due to a history of dementia, the patient is unable to provide a meaningful history of what might have happened. Here in the ED, the patient's initial BP is found to be elevated at 171/156 (that does not appear to be correct), with a tachycardia of 104 bpm, and tachypnea of 34 rpm (on exam, the patient is not actually tachypneic). He is afebrile, saturating 94 to 95% on room air. When asked, the patient does not know where he is, and is unable to tell me the year, month, or season. He denies being in pain. His recent review of systems is unknown. The patient's PCP is Dr. Brooks Arteaga. - Related Data Allergies Allergy/AdvReac Type Severity Reaction Status Date / Time No Known Drug Allergies Allergy none Verified 11/27/19 06:05 Home Meds: Home Meds Finasteride 5 mg PO DAILY 12/21/16 [History] Fish Oil/DHA/EPA [Fish Oil 1,200 MG] 1 each PO DAILY 12/21/16 [History] Levothyroxine [Synthroid] 88 mcg PO ACBREAKFAST 12/21/16 [History] atorvaSTATin [Lipitor] 40 mg PO BEDTIME 12/21/16 [History] Cholecalciferol (Vitamin D3) [Vitamin D3] 2,000 unit PO DAILY 07/23/18 [History] Diclofenac Sodium [Voltaren 1% Gel] 1 applic TOP QID PRN 07/23/18 [History] Multivitamin/Opth Areds 1 tab PO DAILY 07/23/18 [History] Apixaban [Eliquis] 5 mg PO BID #60 tablet 07/29/18 [Rx] Apixaban [Eliquis] 10 mg PO BID #3 tablet 07/29/18 [Rx] Digoxin 125 mcg PO DAILY #30 tablet 07/29/18 [Rx] Metoprolol Tartrate 75 mg PO BID #60 tablet 07/29/18 [Rx] Tamsulosin [Flomax] 0.4 mg PO BIDPC #30 cap.er 07/29/18 [Rx] Terazosin [Hytrin] 4 mg PO BEDTIME #30 07/29/18 [Rx] Past Medical History HEENT History: Reports: Hard of Hearing, Impaired Vision Cardiovascular History: Reports: Afib, Blood Clots/VTE/DVT (RLE), High Cholesterol, Hypertension Gastrointestinal History: Reports: Diverticulosis, GERD Genitourinary History: Reports: BPH, Retention, Urinary Musculoskeletal History: Reports: Osteoarthritis Neurological History: Reports: Other (See Below) (Dementia) Endocrine/Metabolic History: Reports: Hypothyroidism Social & Family History - Tobacco Use Smoking Status *Q: Former Smoker Month/Year Tobacco Last Used: Quit 1961 - Caffeine Use Caffeine Use: Reports: Coffee - Living Situation & Occupation Living situation: Reports: , Extended Care Facility ([facility]) Occupation: Retired ED ROS GENERAL - Review of Systems Review Of Systems: Unable To Obtain Reason Not Obtained: Patient dementia ED EXAM, GENERAL - Physical Exam Exam: See Below Exam Limited By: No Limitations General Appearance: No Apparent Distress, Thin Eye Exam: Bilateral Eye: EOMI, Normal Inspection Ears: Normal External Exam, Hearing Loss Nose: Normal Inspection Throat/Mouth: Normal Inspection, Normal Lips, Normal Voice, No Airway Compromise Head: Atraumatic, Normocephalic Neck: Normal Inspection, Full Range of Motion Respiratory/Chest: No Respiratory Distress, Lungs Clear, Normal Breath Sounds, No Accessory Muscle Use Cardiovascular: Normal Peripheral Pulses, No Edema, No Gallop, No JVD, No Murmur, No Rub, Tachycardia, Irregularly Irregular Peripheral Pulses: 3+: Radial (L), Radial (R) GI/Abdominal: Normal Bowel Sounds, Soft, Non-Tender, No Organomegaly, No Distention, No Abnormal Bruit, No Mass (Male) Exam: Deferred Rectal (Males) Exam: Deferred Back Exam: Normal Inspection, Full Range of Motion, NT Extremities: Normal Range of Motion, No Pedal Edema, Normal Capillary Refill, Other (Numerous ecchymoses) Neurological: No Motor/Sensory Deficits (Generally weak handgrip, equal bilaterally) Psychiatric: Normal Affect Skin Exam: Warm, Dry, Intact, Normal Color, No Rash EKG INTERPRETATION EKG Date: 11/27/19 Time: 05:36 Rhythm: A-Fib Rate (Beats/Min): 123 [place]: Normal P-Wave: Absent QRS: RBBB ST-T: Depressed (V4-V6, but no T-wave inversions) QT: Prolonged (QTc 540 ms) Comparison: Change From Previous EKG (ECG 07/23/2018 - pt was in A-flutter with 2:1 conduction) Course - Vital Signs Last Recorded V/S: Last Vital Signs Temp 37.0 C 11/27/19 06:43 Pulse 96 11/27/19 06:43 Resp 33 H 11/27/19 06:43 BP 95/52 L 11/27/19 06:43 Pulse Ox 99 11/27/19 06:43 Orthostatic Blood Pressure [ 93/44 Sitting] Orthostatic Blood Pressure [ 94/58 Supine] - Orders/Labs/Meds Orders: Active Orders 24 hr Category Date Time Status EKG Documentation Completion [RC] STAT Care 11/27/19 05:26 Active Orthostatic Vital Signs [RC] STAT Care 11/27/19 05:27 Active Orthostatic Vital Signs [RC] STAT Care 11/27/19 06:46 Active Cervical Spine wo Cont [CT] Stat Exams 11/27/19 05:43 Taken Chest 1V Frontal [CR] Stat Exams 11/27/19 05:27 Taken Head wo Cont [CT] Stat Exams 11/27/19 05:21 Taken CULTURE BLOOD [BC] Stat Lab 11/27/19 07:18 Ordered CULTURE BLOOD [BC] Stat Lab 11/27/19 07:18 Ordered CULTURE URINE [RM] Stat Lab 11/27/19 05:45 Received LACTIC ACID [CHEM] Stat Lab 11/27/19 07:05 Ordered TROPONIN I [CHEM] Timed Lab 11/27/19 07:10 Received Levofloxacin/Dextrose 5%-Water [Levaquin in D5W 750 MG/ Med 11/27/19 06:49 Active 150 ML] 750 mg Premix Bag 1 bag IV ONETIME Blood Culture x2 Reflex Set [OM.PC] Stat Oth 11/27/19 07:18 Ordered Medication Orders Levofloxacin/Dextrose 750 mg/ (Premix) 150 mls @ 100 mls/hr IV ONETIME STA Stop: 11/27/19 08:18 Labs: Laboratory Tests 11/27/19 11/27/19 11/27/19 Range/Units 05:45 06:10 06:10 WBC 2.44 L* (4.23-9.07) K/mm3 RBC 4.30 L (4.63-6.08) M/mm3 Hgb 14.7 D (13.7-17.5) gm/dl Hct 44.2 (40.1-51.0) % MCV 102.8 H D (79.0-92.2) fl MCH 34.2 H (25.7-32.2) pg MCHC 33.3 (32.2-35.5) g/dl RDW Std Deviation 51.2 H (35.1-43.9) fL Plt Count 122 L D (163-337) K/mm3 MPV 8.1 L (9.4-12.3) fl Neutrophils % (Manual) 78 H (40-60) % Band Neutrophils % 1 (0-10) % Lymphocytes % (Manual) 18 L (20-40) % Atypical Lymphs % 0 % Monocytes % (Manual) 2 (2-10) % Eosinophils % (Manual) 1 (0.8-7.0) % Basophils % (Manual) 0 L (0.2-1.2) Platelet Estimate Adequate Plt Morphology Comment Normal RBC Morph Comment Normal Sodium 143 (136-145) mEq/L Potassium 3.7 (3.5-5.1) mEq/L Chloride 108 H (98-107) mEq/L Carbon Dioxide 19 L (21-32) mEq/L Anion Gap 19.7 H (5-15) BUN 25 H (7-18) mg/dL Creatinine 1.9 H (0.7-1.3) mg/dL Est Cr Clr Drug Dosing 28.28 mL/min Estimated GFR (MDRD) 34 (>60) mL/min BUN/Creatinine Ratio 13.2 L (14-18) Glucose 138 H (83-115) mg/dL Calcium 9.4 (8.5-10.1) mg/dL Magnesium 1.9 (1.8-2.4) mg/dl Total Bilirubin 1.8 H (0.2-1.0) mg/dL AST 373 H (15-37) U/L ALT 308 H (16-63) U/L Alkaline Phosphatase 97 (46-116) U/L Troponin I 0.648 H* (0.00-0.056) ng/mL Total Protein 5.8 L (6.4-8.2) g/dl Albumin 2.7 L (3.4-5.0) g/dl Globulin 3.1 gm/dL Albumin/Globulin Ratio 0.9 L (1-2) Urine Color [place] H (Yellow) Urine Appearance Slt cloudy H (Clear) Urine pH 8.5 H (5.0-8.0) Ur Specific [place] 1.020 (1.005-1.030) Urine Protein 2+ H (Negative) Urine Glucose (UA) Negative (Negative) Urine Ketones Negative (Negative) Urine Occult Blood 3+ H (Negative) Urine Nitrite Positive H (Negative) Urine Bilirubin Negative (Negative) Urine Urobilinogen 0.2 (0.2-1.0) Ur Leukocyte Esterase 2+ H (Negative) Urine RBC >100 H (0-5) /hpf Urine WBC 10-20 H (0-5) /hpf Ur Squamous Epith Cells 0-5 (0-5) /hpf Triple Phos Crystals Few H (NONE) /hpf Amorphous Sediment Many H (NOT SEEN) /hpf Urine Bacteria Moderate H (FEW) /hpf Urine Mucus Not seen (FEW) /hpf Meds: Medications Generic Name Dose Route Start Last Admin Trade Name Freq PRN Reason Stop Dose Admin Levofloxacin/Dextrose 750 mg/ 150 mls @ 100 mls/hr 11/27/19 06:49 Premix IV 11/27/19 08:18 ONETIME STA Discontinued Medications Generic Name Dose Route Start Last Admin Trade Name Lei PRN Reason Stop Dose Admin Lactated Ringer's 1,000 mls @ 999 mls/hr 11/27/19 06:29 11/27/19 06:38 Ringers, Lactated IV 11/27/19 07:29 999 mls/hr .BOLUS ONE Administration - Re-Assessments/Exams Free Text/Narrative Re-Assessment/Exam: 11/27/19 05:23 As above, leave that the patient was found on the floor around 03:00. He is on Eliquis. I have ordered CT scans of the patient's head and cervical spine without contrast, a urinalysis, and orthostatics to evaluate, along with blood work and a portable chest x-ray due to his being in atrial fibrillation. 11/27/19 06:05 CT of the head without contrast is read by [facility] as "Chronic age-related changes but no evidence of acute intracranial pathology." 11/27/19 06:28 CT of the cervical spine without contrast is read by [facility] as "No evidence of cervical spine fracture. Remainder of findings as described above." Portable chest radiograph reviewed. The cardiac silhouette is within normal limits. Mild pulmonary vascular congestion. No pleural effusions. No focal infiltrate, although there does appear to be a focal area of atelectasis at the right base. No pneumothorax. Elevated right hemidiaphragm. Formal read per the Radiologist pending. Notified by Irish PICHARDO that, initially, the patient's BP was low on the left arm but high on the right. Because the patient complained of pain to his left arm with the blood pressure cuff on that side, his blood pressure cuff was switched to the right, and now his BP is low on both sides. We will check orthostatics, but in the meantime, the patient will be given a 1 L bolus of LR. 11/27/19 06:33 Notified by Carla PICHARDO that they were unable to get the patient to stand when checking orthostatics, that he looked like he was going to fall, however, his diastolic BP dropped by greater than 10 mmHg just between supine and sitting, therefore the patient is in fact orthostatic. As above, an IV fluid bolus has already been ordered. 11/27/19 06:50 The patient's CBC is remarkable for WBC count depressed at 2.44, and platelets depressed at 122,000, with the remainder of his CBC being unremarkable. His urinalysis is remarkable for slightly cloudy appearance, 3+ occult blood with >100 RBCs, 2+ leukocyte esterase with 10-20 WBCs, nitrite positive with moderate bacteria, and 0-5 squamous epithelial cells. The patient CMP, magnesium level, and troponin are all still pending. Based on the above, I have ordered a urine culture, and will start the patient on empiric Levaquin to treat presumed pyelonephritis. 11/27/19 06:54 The patient's CMP is remarkable for a bicarbonate depressed at 19 with an anion gap elevated at 19.7, a BUN/Cr elevated at 25/1.9, blood glucose mildly elevated at 138, a TBil elevated at 1.8, and an AST/ALT elevated at 373/308, respectively. The remainder of his CMP is unremarkable. His magnesium level is within normal limits at 1.9. His troponin is elevated at 0.648. Review of prior labs finds that the patient's BUN/Cr were 17/0.8 on 07/29/2018. There are no prior LFTs to compare. The patient's elevated troponin may be a result of his renal insufficiency, his A-fib with RVR, a combination of the two, or due to an acute cardiac event. I have ordered a repeat troponin to be drawn at 08:00 (about 2 hours after the o riginal was drawn), to see if it is trending. 11/27/19 07:18 Case discussed at length with the patient's niece, who is his power of attorney at law. She confirmed that the patient has some dementia. She also reported that the patient is DNR/DNI, and that she would not want him to be transferred to [place] if he suffered an acute IA. That being the case, there is no reason why we cannot admit him to this hospital. 11/27/19 07:[address] Messina here in the ED. She accepted the patient for admission to telemetry. She is aware that a lactic acid level and second troponin are still pending. Departure - Departure Time of Disposition: 07:37 Disposition: Admitted As Inpatient 68 Condition: Fair Clinical Impression: Orthostasis, Fall at [facility], Scalp contusion, Renal insufficiency, High anion gap metabolic acidosis, Elevated LFTs, Elevated troponin, Pyelonephritis, Hypotension - Discharge Information *PRESCRIPTION DRUG MONITORING PROGRAM REVIEWED*: Not Applicable *COPY OF PRESCRIPTION DRUG MONITORING REPORT IN PATIENT YOUNG: Not Applicable Referrals: Brooks Arteaga MD [Physician] - Sepsis Event Note (ED) - Focused Exam Vital Signs: Vital Signs Temp Pulse Resp BP Pulse Ox 11/27/19 06:43 37.0 C 96 33 H 95/52 L 99 11/27/19 05:34 37.0 C 104 H 34 H 171/156 H 90 L - My Orders Last 24 Hours: My Active Orders 11/27/19 05:21 Head wo Cont [CT] Stat 11/27/19 05:26 EKG Documentation Completion [RC] STAT 11/27/19 05:27 Orthostatic Vital Signs [RC] STAT Chest 1V Frontal [CR] Stat 11/27/19 05:43 Cervical Spine wo Cont [CT] Stat 11/27/19 05:45 CULTURE URINE [RM] Stat 11/27/19 06:46 Orthostatic Vital Signs [RC] STAT 11/27/19 06:49 Levofloxacin/Dextrose 5%-Water [Levaquin in D5W 750 MG/150 ML] 750 mg Premix Bag 1 bag IV ONETIME 11/27/19 07:05 LACTIC ACID [CHEM] Stat 11/27/19 07:10 TROPONIN I [CHEM] Timed 11/27/19 07:18 CULTURE BLOOD [BC] Stat CULTURE BLOOD [BC] Stat Blood Culture x2 Reflex Set [OM.PC] Stat - Assessment/Plan Last 24 Hours: My Active Orders 11/27/19 05:21 Head wo Cont [CT] Stat 11/27/19 05:26 EKG Documentation Completion [RC] STAT 11/27/19 05:27 Orthostatic Vital Signs [RC] STAT Chest 1V Frontal [CR] Stat 11/27/19 05:43 Cervical Spine wo Cont [CT] Stat 11/27/19 05:45 CULTURE URINE [RM] Stat 11/27/19 06:46 Orthostatic Vital Signs [RC] STAT 11/27/19 06:49 Levofloxacin/Dextrose 5%-Water [Levaquin in D5W 750 MG/150 ML] 750 mg Premix Bag 1 bag IV ONETIME 11/27/19 07:05 LACTIC ACID [CHEM] Stat 11/27/19 07:10 TROPONIN I [CHEM] Timed 11/27/19 07:18 CULTURE BLOOD [BC] Stat CULTURE BLOOD [BC] Stat Blood Culture x2 Reflex Set [OM.PC] Stat
[2019-11-27] MEDS ORDERED: Lactated Ringers 1,000 ML IV ONE ×3 (06:29→11:52)
[2019-11-27] MEDS ORDERED: Levofloxacin/Dextrose 5%-Water 750 MG in Premix Bag 1 BAG IV STA (06:49)
[2019-11-27] MEDS ORDERED: cefTRIAXone 2 GM in Sodium Chloride 0.9% 100 ML IV SCH (08:15)
--- NOTE | 2019-11-27 08:29 | CR ---
Chest: Portable view of the chest was obtained. Comparison: Prior chest x-ray of 07/23/18. Heart size is normal. Tortuous thoracic aorta is seen. Thick area of atelectasis is noted within the right lung base. Lungs otherwise are clear with no acute parenchymal change. Bony structures are grossly intact. Impression: 1. Thick area of atelectasis within the right lung base. 2. Nothing acute is otherwise seen on portable chest x-ray. Diagnostic code #2 This report was dictated in MDT
--- NOTE | 2019-11-27 08:38 | CT ---
CT cervical spine Technique: Multiple axial sections through the cervical spine were obtained from above C2 inferiorly to the mid T3 level. Reconstructed sagittal and coronal images were reviewed. Findings: Diffuse disc space narrowing throughout the cervical spine is seen most severe at C5-6. Posterior osteophytes noted throughout the cervical spine. Anterior osteophytes are seen within the cervical spine most prominent at C5-6. Mild left-sided neural foraminal stenosis is noted at C3-4 on the left side. Mild left-sided neural foraminal stenosis noted at C4-5 on the left side. Mild neural foraminal stenosis noted on the left side at C5-6. Other neural foramina are felt to be fairly well patent. Diffuse degenerative apophyseal change is noted. No acute fracture or abnormal subluxation is seen. Impression: 1. Diffuse degenerative change. 2. Nothing acute is appreciated on CT study of the cervical spine. Diagnostic code #2 This report was dictated in MDT I agree with preliminary report from [facility], finalized on 11/27/19, 7:13 AM [place] Daylight Time
--- NOTE | 2019-11-27 08:38 | CT ---
Head CT Technique: Multiple axial sections through the brain were obtained. Intravenous contrast was not utilized. Comparison: No previous imaging. Findings: Ventricles along with basal cisterns and sulci over the convexities are moderately prominent. Minimal areas of diminished density noted within portions of the periventricular white matter which is felt compatible with small vessel ischemic demyelination change. No other abnormal parenchymal densities are seen. No evidence of intracranial hemorrhage. No midline shift or mass-effect is seen. Mild atherosclerotic calcification is seen within the carotid siphon. Bone window settings were reviewed. No acute calvarial abnormality is seen. Visualized paranasal sinuses and visualized mastoid sinuses show nothing acute. Impression: 1. Senescent change as noted above. 2. No acute intracranial abnormality is identified. Diagnostic code #2 This report was dictated in MDT I agree with preliminary report from [facility], finalized on 11/27/19, 7:03 AM [place] Daylight Time
[2019-11-27] MEDS ORDERED: Piperacillin/Tazobactam 4.5 GM in Sodium Chloride 0.9% 100 ML IV ONE (08:42)
[2019-11-27] MEDS ORDERED: Ondansetron 4 MG Tab.DIS PO PRN (08:54)
[2019-11-27] MEDS ORDERED: Ondansetron 4 MG/2 ML SDV IV PRN (08:54)
[2019-11-27] MEDS ORDERED: Acetaminophen 325 MG Tab PO PRN (08:54)
[2019-11-27] MEDS ORDERED: Lactated Ringers 1,000 ML IV SCH (09:00)
--- NOTE | 2019-11-27 09:08 | PCM.HP.2 ---
H&P History of Present Illness - General Date of Service: 11/27/19 Admit Problem/Dx: Admission Diagnosis/Problem Admission Diagnosis/Problem Severe sepsis - History of Present Illness Initial Comments - Free Text/Narative: This is an 89-year-old [facility] resident who was brought to the ED via EMS after being found down by [facility] staff. As per staff reports patient was found down around 3 AM, documenting low BP however patient was found to be normotensive by EMS with SBP in 150s Staff also stated patient was confused, normal baseline. - Related Data Allergies/Adverse Reactions: Allergies Allergy/AdvReac Type Severity Reaction Status Date / Time No Known Drug Allergies Allergy none Verified 11/27/19 06:05 Home Medications: Home Meds Finasteride 5 mg PO DAILY 12/21/16 [History] Levothyroxine [Synthroid] 88 mcg PO ACBREAKFAST 12/21/16 [History] atorvaSTATin [Lipitor] 40 mg PO BEDTIME 12/21/16 [History] Cholecalciferol (Vitamin D3) [Vitamin D3] 2,000 unit PO DAILY 07/23/18 [History] Diclofenac Sodium [Voltaren 1% Gel] 1 applic TOP QID PRN 07/23/18 [History] Digoxin 125 mcg PO DAILY #30 tablet 07/29/18 [Rx] Acetaminophen [Pain Relief] 650 mg PO BID 11/27/19 [History] Apixaban [Eliquis] 5 mg PO BID 11/27/19 [History] Docusate Sodium/Sennosides [Senna Plus] 2 each PO DAILY PRN 11/27/19 [History] Metoprolol Tartrate [Lopressor] 100 mg PO BID 11/27/19 [History] Past Medical History HEENT History: Reports: Hard of Hearing, Impaired Vision Cardiovascular History: Reports: Afib, Blood Clots/VTE/DVT (RLE), High Cholesterol, Hypertension Other Cardiovascular History: atrial flutter with RVR Gastrointestinal History: Reports: Diverticulosis, GERD Genitourinary History: Reports: BPH, Retention, Urinary Musculoskeletal History: Reports: Osteoarthritis Neurological History: Reports: Other (See Below) (Dementia) Endocrine/Metabolic History: Reports: Hypothyroidism Social & Family History - Tobacco Use Smoking Status *Q: Former Smoker Month/Year Tobacco Last Used: Quit 1961 - Caffeine Use Caffeine Use: Reports: Coffee - Living Situation & Occupation Living situation: Reports: , Extended Care Facility ([facility]) Occupation: Retired H&P Review of Systems - Review of Systems: Review Of Systems: Unable To Obtain Reason Not Obtained: Patient with decreased responsiveness Exam - Exam Exam: See Below - Vital Signs Vital Signs: Last Vital Signs Temp 98.6 F 11/27/19 06:43 Pulse 96 11/27/19 06:43 Resp 28 H 11/27/19 08:58 BP 112/63 11/27/19 08:58 Pulse Ox 100 11/27/19 08:58 Orthostatic Blood Pressure [ 93/44 Sitting] Orthostatic Blood Pressure [ 94/58 Supine] Weight: 78.471 kg - Exam General: Cooperative, Lethargic. No: Mild Distress HEENT: Conjunctiva Clear, EACs Clear, Mucosa Moist & [place], Pupils Equal, Pupils Reactive Neck: Supple, Trachea Midline, +2 Carotid Pulse wo Bruit. No: Lymphadenopathy Lungs: Clear to Auscultation, Normal Respiratory Effort. No: Crackles, Rales, Rhonchi, Rub, Stridor, Wheezing Cardiovascular: Regular Rhythm, Tachycardia. No: Systolic Murmur, Diastolic Murmur, Rubs, Gallop/S3, Gallop/S4 GI/Abdominal Exam: Normal Bowel Sounds, Soft, Non-Tender, Distended, Other (suprapubic catheter in place, no erythema or drainage on/around insertion site). No: Guarding, Rigid, Rebound Extremities: No Pedal Edema (trace around knees), Slow Capillary Refill, Pallor. No: Joint Swelling Peripheral Pulses: 2+: Radial (L), Radial (R), Dorsalis Pedis (L), Dorsalis Pedis (R) Skin: Warm, Dry - Patient Data Result Diagrams: 11/27/19 06:10 11/27/19 06:10 Sepsis Event Note - Evaluation Sepsis Screening Result: Severe Sepsis Risk - Focused Exam Vital Signs: Vital Signs Temp Pulse Resp BP Pulse Ox 11/27/19 08:58 28 H 112/63 100 11/27/19 06:43 98.6 F 96 33 H 95/52 L 99 11/27/19 05:34 98.6 F 104 H 34 H 171/156 H 90 L Date Exam was Performed: 11/27/19 Time Exam was Performed: 11:31 - Problem List (1) Septic shock due to urinary tract infection SNOMED Code(s): 97938540 ICD Code: A41.9 - SEPSIS, UNSPECIFIED ORGANISM; R65.21 - SEVERE SEPSIS WITH SEPTIC SHOCK; N39.0 - URINARY TRACT INFECTION, SITE NOT SPECIFIED Status: Acute Current Visit: Yes (2) UTI (urinary tract infection) SNOMED Code(s): 64815756 ICD Code: N39.0 - URINARY TRACT INFECTION, SITE NOT SPECIFIED Status: Acute Priority: High Current Visit: No Qualifiers: Urinary tract infection type: acute cystitis Hematuria presence: without hematuria Qualified Code(s): N30.00 - Acute cystitis without hematuria (3) Leukopenia SNOMED Code(s): 74753819, 083269874 ICD Code: D72.819 - DECREASED WHITE BLOOD CELL COUNT, UNSPECIFIED Status: Acute Current Visit: Yes (4) Thrombocytopenia SNOMED Code(s): 776580876 ICD Code: D69.6 - THROMBOCYTOPENIA, UNSPECIFIED Status: Acute Current Visit: Yes (5) H/O femoral vein thrombosis SNOMED Code(s): 647486026 ICD Code: Z86.718 - PERSONAL HISTORY OF OTHER VENOUS THROMBOSIS AND EMBOLISM Status: Acute Current Visit: Yes (6) Lactic acid acidosis SNOMED Code(s): 74263797 ICD Code: E87.2 - ACIDOSIS Status: Acute Current Visit: Yes (7) Acute kidney injury SNOMED Code(s): 52218119, 99409265 ICD Code: N17.9 - ACUTE KIDNEY FAILURE, UNSPECIFIED Status: Acute Current Visit: Yes (8) Suprapubic catheter SNOMED Code(s): 158922195, 753829927 ICD Code: Z93.59 - OTHER CYSTOSTOMY STATUS Status: Acute Current Visit: Yes (9) Chronic anticoagulation SNOMED Code(s): 155555333 ICD Code: 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 Status: Acute Current Visit: Yes (10) Hypertension SNOMED Code(s): 55050412 ICD Code: I10 - ESSENTIAL (PRIMARY) HYPERTENSION Status: Acute Current Visit: Yes (11) GERD (gastroesophageal reflux disease) SNOMED Code(s): 605949310 ICD Code: K21.9 - GASTRO-ESOPHAGEAL REFLUX DISEASE WITHOUT ESOPHAGITIS Status: Acute Current Visit: Yes (12) Hypothyroidism SNOMED Code(s): 69626729 ICD Code: E03.9 - HYPOTHYROIDISM, UNSPECIFIED Status: Acute Current Vis it: Yes (13) Cognitive deficits SNOMED Code(s): 917046623 ICD Code: R41.89 - OTH SYMPTOMS AND SIGNS W COGNITIVE FUNCTIONS AND AWARENESS Status: Acute Current Visit: Yes (14) [facility] resident SNOMED Code(s): 135154459 ICD Code: Z59.3 - PROBLEMS RELATED TO LIVING IN RESIDENTIAL INSTITUTION Status: Acute Current Visit: Yes (15) Atrial flutter with rapid ventricular response SNOMED Code(s): 2505879, 3218973 ICD Code: I48.92 - UNSPECIFIED ATRIAL FLUTTER Status: Resolved Priority: High Current Visit: No (16) Elevated troponin SNOMED Code(s): 747876098, 655566177, 987385943 ICD Code: R79.89 - OTHER SPECIFIED ABNORMAL FINDINGS OF BLOOD CHEMISTRY Status: Acute Current Visit: No (17) Fall at [facility] SNOMED Code(s): 866770570 ICD Code: W19.XXXA - UNSPECIFIED FALL, INITIAL ENCOUNTER; Y92.129 - UNSP PLACE IN RETIREMENT PLACE Status: Acute Current Visit: No (18) High anion gap metabolic acidosis SNOMED Code(s): 30247749 ICD Code: E87.2 - ACIDOSIS Status: Acute Current Visit: No Problem List Initiated/Reviewed/Updated: Yes Assessment/Plan Comment:: ASSESSMENT This is an 89-year-old [facility] resident who was brought to the ED via EMS after being found down by [facility] staff. As per staff reports patient was found down around 3 AM, documenting low BP however patient was found to be normotensive by EMS with SBP in 150s Staff also stated patient was confused, normal baseline. Vital signs upon admission to the emergency department with a heart rate of 104, temp of 98.6, mean arterial pressure 161, pulse ox of 90 Orthostatic vital signs positive Repeat blood pressure with a map of 66 Lab results White count 2.44 with 78% neutrophils and 1% bands Platelets 122 MCV 102.8 with MCHC 33.3 INR 1.18 Anion gap 19.7, CO2 19 GFR 34 Lactic acid 10.1 Phosphorus 1.9 Magnesium 1.9 LFTs: Total bilirubin 1.8, AST 273, ALT 308, alkaline phosphatase 97 Troponin I 0.061 Total protein 5.8 and albumin 2.7 Urinalysis: Pain, slightly cloudy, pH 7.5, 2+ protein, 3+ occult blood, positive nitrites, 2+ leukocyte esterase, over 100 RBCs, 10-20 WBCs, few triple phosphate crystals, many amorphous sediment, moderate urinary bacteria COVID test negative Chest x-ray within normal limits Sepsis alert was called and patient was started on Zosyn, fluid bolus as per ideal body weight is 2600 mL's of LR Discussed case with niece who is MPOA and she stated that you would not want to pursue any active cardiovascular work-up for which troponins will not be trended. Upon admission to the ED patient was described as being lethargic and unresponsive - Upon my evaluation patient is responsive and answering questions PLAN Septic shock due to urinary tract infection Leukopenia/Thrombocytopenia Acute vs. acute on chronic kidney disease High anion hap metabolic acidosis 2/2 elevated lactic acid - Start Zosyn - IVF repletion with LR - Central line placement - Start norepinephrine drip - Reflex lactic acid - Blood and urine cultures - Strict I/O monitorization - Monitor temp and panculture if febrile Atrial flutter with rapid ventricular response on Eliquis Elevated troponin H/O femoral vein thrombosis - Cardiac monitorization - Continue Eliquis - Hold home rate control medications Hypertension - Hold all home BP medications Hypothyroidism - Hold home levothyroxine BPH s/p Suprapubic catheter - Suprapubic catheter care - Request records to evaluate need for exchange - Discontinue Finasteride [facility] resident Cognitive deficits - Let me sleep protocol as possible PROPHYLAXIS DVT- Eliquis GI- not indicated CODE STATUS: DNR/DNI DISPOSITION: Patient will be admitted to ICU for IVF repletion, IV antibiotics and vasopressors for the management of septic shock. Prognosis is poor with [place] II score of 23 with predicted rate of 46% SOCIAL Resident at [facility] Bed mobility, transfer, ambulation, dressing and personal hygiene by self Bathing with 1 assist Continent Regular diet without assistance - Mortality Measure Prognosis:: Poor
[2019-11-27] MEDS: Lactated Ringers 1,000 ML IV SCH ×6 (09:56→22:31)
--- NOTE | 2019-11-27 11:01 | PCM.PRNOTE ---
- Free Text/Narrative Note: Central Venous Catheter Placement Date: 11/27/2019 Time: 9:45AM Indication: Refractory septic shock requiring vasopressors Attending: Bianka Messina MD A time-out was completed verifying correct patient, procedure, site, positioning, and special equipment if applicable. The patient was placed in a dependent position appropriate for central line placement based on the vein to becannulated. The patients right neck was prepped and draped in sterile fashion. 1%Lidocainewas used to anesthetize the surrounding skin area. A triple lumen 7-FrenchCordiscatheter was introduced into the the internal jugular using the Seldingertechnique and under ultrasound guidance. The catheter was threaded smoothly over the guide wire and appropriate blood return was obtained. Each lumen of the catheter was evacuated of air and flushed with sterile saline. The catheter was then sutured in place to the skin and a sterile dressing applied. Perfusion to the extremity distal to the point of catheter insertion was checked and found to be adequate. Estimated Blood Loss: 10mL The patient tolerated the procedure well and there were no complications.
--- NOTE | 2019-11-27 11:03 | PCM.SN.2 ---
- Free Text/Narrative Note: SEPSIS FOLLOW-UP NOTE Repeat BP after IV fluid bolus: - 97/37 - 99/49 Physical Exam: Normocephalic and atraumatic, alert and arousable Heart is rhythmic and synchronic with pulse but tachycardic Lungs are clear to auscultation, no crackles, rales, rhonchi or wheezing Pulses are palpable +2 BL radial and +1 BL dorsal PLAN - Central line placed with confirmed position - Start on Norepinephrine
--- NOTE | 2019-11-27 11:16 | CR ---
Chest: Portable supine view of the chest was obtained. Comparison: Prior chest x-ray performed earlier on the same day. Thick area of atelectasis within the right lung base. Stable elevated right hemidiaphragm. Lungs are clear with no acute parenchymal change. Heart size is within normal limits. Tortuous thoracic aorta is noted. Right jugular line is noted which is an interval change from previous exam. Tip lies of the right atrial and superior vena cava junction. No pneumothorax is seen. Impression: 1. Right jugular line with tip lying near the right atrial and superior vena cava junction. 2. Thick area of atelectasis remains within the right lung base. 3. Other stable findings. Diagnostic code #3 This report was dictated in MDT
[2019-11-27] MEDS: Norepinephrine 4 MG in Dextrose 5% in Water 246 ML IV SCH ×6 (11:30→22:44)
[2019-11-27] MEDS ORDERED: Sodium Chloride 0.9% 500 ML ONE (16:29)
--- NOTE | 2019-11-27 17:04 | PCM.PRNOTE ---
- Free Text/Narrative Note: Arterial Line Placement Date: 11/27/2019 Time: 16:45PM Indication: Hemodynamic monitoring Attending: Bianka Messina MD A time-out was completed verifying correct patient, procedure, site, position ing, and special equipment if applicable. Allens test was performed to ensure adequate perfusion. The patients right wrist was prepped and draped in sterile fashion. A20G Arrow arterial line was introduced into the right radial artery. The catheter was threaded over the guide wire and the needle was removed with appropriate pulsatileblood return. The catheter was then sutured in place to the skin and a sterile dressing applied. Perfusion to the extremity distal to the point of catheter insertion was checked and found to be adequate. Estimated Blood Loss: 2mL The patient tolerated the procedure well and there were no complications.
[2019-11-27] MEDS: Piperacillin/Tazobactam 4.5 GM in Sodium Chloride 0.9% 100 ML IV SCH (17:16)
--- NOTE | 2019-11-27 18:25 | PCM.SN.2 ---
- Free Text/Narrative Note: SEPSIS FOLLOW-UP NOTE Repeat BP after IV fluid bolus: -86/52 -77/52 Physical Exam: Normocephalic and atraumatic, alert and arousable Heart is rhythmic and synchronic with pulse but tachycardic Lungs are clear to auscultation, no crackles, rales, rhonchi or wheezing Pulses are palpable +2 BL radial and +1 BL dorsalis pedis, slow capillary refill PLAN - Continue Norepinephrine - Insert Arterial line
[2019-11-28] MEDS: Piperacillin/Tazobactam 4.5 GM in Sodium Chloride 0.9% 100 ML IV SCH ×2 (01:27→13:56)
[2019-11-28] MEDS: Norepinephrine 4 MG in Dextrose 5% in Water 246 ML IV SCH ×12 (01:36→14:02)
[2019-11-28] MEDS: Lactated Ringers 1,000 ML IV SCH ×3 (02:31→10:52)
[2019-11-28] MEDS: Hydrocortisone Sodium Succinate 100 MG/2 ML SDV IVPUSH SCH ×3 (07:30→20:08)
[2019-11-28] MEDS: Apixaban 2.5 MG Tab PO SCH ×2 (10:13→20:08)
[2019-11-28] MEDS ORDERED: Digoxin 125 MCG Tab PO SCH (10:30)
[2019-11-28] MEDS ORDERED: Magnesium Sulfate/Water 4 GM in Premix Bag 1 BAG IV ONE (10:30)
[2019-11-28] MEDS ORDERED: Lactated Ringers 1,000 ML IV SCH (12:45)
--- NOTE | 2019-11-28 14:05 | CR ---
Chest: Portable view of the chest was obtained. Comparison: Prior chest x-ray of 11/27/19. Haziness to both hemidiaphragms are noted most likely due to small pleural effusions and possible atelectasis. Right-sided jugular line is seen with tip lying near the right atrial and superior vena cava junction. No pneumothorax is seen. Pulmonary vessels appear slightly congested. Heart size at the upper limits of normal. Impression: 1. Questionable small pleural effusions with bibasilar atelectasis. 2. Right jugular line as noted above. 3. Questionable mild pulmonary vascular congestion. Diagnostic code #3 This report was dictated in MDT
[2019-11-28] MEDS ORDERED: Magnesium Sulfate/Water 2 GM in Premix Bag 1 BAG IV ONE (14:30)
--- NOTE | 2019-11-28 14:39 | PCM.PN ---
- General Info Date of Service: 11/28/19 Subjective Update: INTERVAL HISTORY Overnight Events: - Slept through the night - Ate about 50% yesterday - BP continues to be borderline - Fever yesterday--> cultures ordered - Microbiology called in 05/10 + blood cultures with gram negative rods - O2 Sat dropped and was started on NC around 3AM Vital Signs: BP trend: 59-99/42-59 HR trend: 93-129 Tmax: 100.4 SatO2: Drips and IVF: Norepinephrine @30mcg LR @ 250mlo/hr I/Os: UO: 173 24h balance: +8,863 BM: 11/26 New results: WBC up from 2.44 to 20.27 Plt down from 79 to 122 Na down from 143 to 135 Smear with moderate toxic granulation and many vacuoles within neutrophils GFR down from 43 to 17 Lactic acid down to 6.6 Magnesium down form 1.9 to 1.1 LFTs improved Procalcitonin 59.52 Infectious Disease: Antibiotics: Zosyn, day 2 Cultures: Blood from admission 05/10 with gram negative rods Diet: Regular Lines and tubes: Suprapubic catheter 11/24 Right internal jugular central line 11/26 Right radial arterial line 11/26 - Patient Data Vitals - Most Recent: Last Vital Signs Temp 97 F 11/28/19 11:23 Pulse 121 H 11/28/19 10:13 Resp 39 H 11/28/19 11:24 BP 109/65 11/28/19 11:24 Pulse Ox 93 L 11/28/19 14:14 Weight - Most Recent: 78.471 kg - Exam Quality Assessment: Supplemental Oxygen, Central Line/PICC, Urine Catheter, DVT Prophylaxis General: Other (Somnolent, arousable) HEENT: Pupils Equal, Pupils Reactive, EOMI Neck: Supple, Trachea Midline, No JVD, No Thyromegaly Lungs: Crackles, Rales. No: Normal Respiratory Effort (decreased intensity), Rhonchi, Rub, Stridor, Wheezing Cardiovascular: Regular Rhythm, Tachycardia. No: Murmurs, Gallops, Rubs GI/Abdominal Exam: Normal Bowel Sounds, Soft, Non-Tender, Distended. No: Guarding, Rigid, Rebound Extremities: Normal Inspection, Non-Tender, Slow Capillary Refill Peripheral Pulses: 2+: Brachial (L), Brachial (R), Dorsalis Pedis (L), Dorsalis Pedis (R) Skin: Warm, Dry. No: Intact (some excoriations on upper extremities) Sepsis Event Note - Evaluation Sepsis Screening Result: Severe Sepsis Risk Current Stage of Sepsis: Septic Shock Possible Source of Sepsis: Genitourinary - Focused Exam Sepsis Event Note Statement: Focused Sepsis Exam Completed Respiratory Effort Without Exertion: Other (see below) (Normal respiratory rate, significant oral secretions, crackles thruoghout and decreased air entry at base) Heart Sounds: Other (see below) (tachycardic, synchronic with pulse, no murmurs/rubs or gallops) Capillary Refill, Detail: Greater than (>) 2 Seconds Pulse Description: 2+ Normal Peripheral Pulse Location: Radial Skin Exam (Focused Sepsis): Normal Turgor Date Exam was Performed: 11/29/19 Time Exam was Performed: :40 - Problem List & Annotations (1) Septic shock due to urinary tract infection SNOMED Code(s): 55023675 Code(s): A41.9 - SEPSIS, UNSPECIFIED ORGANISM; R65.21 - SEVERE SEPSIS WITH SEPTIC SHOCK; N39.0 - URINARY TRACT INFECTION, SITE NOT SPECIFIED Status: Acute Current Visit: Yes (2) UTI (urinary tract infection) SNOMED Code(s): 85894469 Code(s): N39.0 - URINARY TRACT INFECTION, SITE NOT SPECIFIED Status: Acute Priority: High Current Visit: No Qualifiers: Urinary tract infection type: acute cystitis Hematuria presence: without hematuria Qualified Code(s): N30.00 - Acute cystitis without hematuria (3) Leukopenia SNOMED Code(s): 22215536, 475378187 Code(s): D72.819 - DECREASED WHITE BLOOD CELL COUNT, UNSPECIFIED Status: Acute Current Visit: Yes (4) Thrombocytopenia SNOMED Code(s): 342267308 Code(s): D69.6 - THROMBOCYTOPENIA, UNSPECIFIED Status: Acute Current Visit: Yes (5) H/O femoral vein thrombosis SNOMED Code(s): 376934489 Code(s): Z86.718 - PERSONAL HISTORY OF OTHER VENOUS THROMBOSIS AND EMBOLISM Status: Acute Current Visit: Yes (6) Lactic acid acidosis SNOMED Code(s): 89204495 Code(s): E87.2 - ACIDOSIS Status: Acute Current Visit: Yes (7) Acute kidney injury SNOMED Code(s): 88097571, 29668025 Code(s): N17.9 - ACUTE KIDNEY FAILURE, UNSPECIFIED Status: Acute Current Visit: Yes (8) Suprapubic catheter SNOMED Code(s): 297940320, 331288217 Code(s): Z93.59 - OTHER CYSTOSTOMY STATUS Status: Acute Current Visit: Yes (9) Chronic anticoagulation SNOMED Code(s): 183056739 Code(s): Z79.01 - CHIEF AIRLINE RADIO OPERATOR (CURRENT) USE OF ANTICOAGULANTS Status: Acute Current Visit: Yes (10) Hypertension SNOMED Code(s): 30434066 Code(s): I10 - ESSENTIAL (PRIMARY) HYPERTENSION Status: Acute Current Visit: Yes (11) GERD (gastroesophageal reflux disease) SNOMED Code(s): 787950207 Code(s): K21.9 - GASTRO-ESOPHAGEAL REFLUX DISEASE WITHOUT ESOPHAGITIS Status: Acute Current Visit: Yes (12) Hypothyroidism SNOMED Code(s): 99601480 Code(s): E03.9 - HYPOTHYROIDISM, UNSPECIFIED Status: Acute Current Visit: Yes (13) Cognitive deficits SNOMED Code(s): 233864725 Code(s): R41.89 - OT SYMPTOMS AND SIGNS W COGNITIVE FUNCTIONS AND AWARENESS Status: Acute Current Visit: Yes (14) custodial resident SNOMED Code(s): 486572262 Code(s): Z59.3 - PROBLEMS RELATED TO LIVING IN RESIDENTIAL INSTITUTION Status: Acute Current Visit: Yes (15) Elevated troponin SNOMED Code(s): 028083606, 125869569, 221714907 Code(s): R79.89 - OTHER SPECIFIED ABNORMAL FINDINGS OF BLOOD CHEMISTRY Status: Acute Current Visit: No (16) Fall at residential SNOMED Code(s): 128762565 Code(s): W19.XXXA - UNSPECIFIED FALL, INITIAL ENCOUNTER; Y92.129 - UNSP PLACE IN GROUP HOME PLACE Status: Acute Current Visit: No (17) High anion gap metabolic acidosis SNOMED Code(s): 05169381 Code(s): E87.2 - ACIDOSIS Status: Acute Current Visit: No (18) Refractory shock SNOMED Code(s): 671111797 Code(s): R57.9 - SHOCK, UNSPECIFIED Status: Acute Current Visit: Yes (19) Bacteremia due to Gram-negative bacteria SNOMED Code(s): 858250363307 Code(s): R78.81 - BACTEREMIA Status: Acute Current Visit: Yes (20) Acute hypoxemic respiratory failure SNOMED Code(s): 409081694 Code(s): J96.01 - ACUTE RESPIRATORY FAILURE WITH HYPOXIA Status: Acute Current Visit: Yes - Problem List Review Problem List Initiated/Reviewed/Updated: Yes - Assessment Assessment:: 11/27/2019 This is an 89-year-old residential resident who was brought to the ED via EMS after being found down by residential staff. As per staff reports patient was found down around 3 AM, documenting low BP however patient was found to be normotensive by EMS with SBP in 150s Staff also stated patient was confused, normal baseline. Vital signs upon admission to the emergency department with a heart rate of 104, temp of 98.6, mean arterial pressure 161, pulse ox of 90 Orthostatic vital signs positive Repeat blood pressure with a map of 66 Lab results White count 2.44 with 78% neutrophils and 1% bands Platelets 122 MCV 102.8 with MCHC 33.3 INR 1.18 Anion gap 19.7, CO2 19 GFR 34 Lactic acid 10.1 Phosphorus 1.9 Magnesium 1.9 LFTs: Total bilirubin 1.8, AST 273, ALT 308, alkaline phosphatase 97 Troponin I 0.061 Total protein 5.8 and albumin 2.7 Urinalysis: Pain, slightly cloudy, pH 7.5, 2+ protein, 3+ occult blood, positive nitrites, 2+ leukocyte esterase, over 100 RBCs, 10-20 WBCs, few triple phosphate crystals, many amorphous sediment, moderate urinary bacteria COVID test negative Chest x-ray within normal limits Sepsis alert was called and patient was started on Zosyn, fluid bolus as per ideal body weight is 2600 mL's of LR Discussed case with niece who is MPOA and she stated that you would not want to pursue any active cardiovascular work-up for which troponins will not be trended. Upon admission to the ED patient was described as being lethargic and unresponsive - Upon my evaluation patient is responsive and answering questions MASHPEE II score of 23 with predicted rate of 46% Admission plan - Start Zosyn - Pancultured prior to antibiotics - LR bolus according to IBW--> 2.5L - LR @ 250 - Repeat lactic acid every 3 hours until less than 2 - Norepinephrine drip started after central line placed - Arterial line placed - Continue Xarelto - Hold home BP and rate control medications Lactic acid continued to trend upwards and required multiple fluid bolus 11/28/2019 Had decrease in pulse oximetry overnight and was placed on NC around 3AM and has been on it - He was given multiple IVF bolus with a positive balance of over 10L - His urinary output has been minimal likely 2/2 hypovolemia Microbiology called with positive blood cultured for gram negative rods BP continues to be borderline - Plan Plan:: Neurology: Minimize central acting medications as possible. Let me sleep protocol as much as possible Respiratory: Continue nasal cannula ABGs STAT Repeat CXR Aspiration precautions Cardiovascular: Sepsis protocol. Continue norepinephrine Continue LR at lower rate of 150ml/hr Start vasopressin Start hydrocortisone MAP goal >65 GI and Nutrition: Regular diet as tolerated Kidney and Electrolytes: Strict monitoring of intake, output and overall fluid balance. Maintain neutral as possible. Avoid nephrotoxic medications. Medications to be dosed according to renal function. Monitor electrolytes and replace as needed. Trend creatinine and BUN. Lasix IV once BP allows it Endocrine: Scheduled Accu-checks if oral intake drops more Hypoglycemia protocol in place. Infectious Disease: Trend temperature. Panculture if febrile. Follow up on cultures from admission and repeat same day Continue antibiotic regimen with Zosyn for now. Procalcitonin every 48 hours Echocardiogram Repeat cultures at 48 hours from initial + results Hematology and Coagulation: No active bleeding, no coagulopathy to correct, no need to transfuse blood products at the moment. Goal hemoglobin >7g Monitor platelets, if continue to drop will hold Eliquis Musculoskeletal and Skin: Bed turn rotation by nursing staff. Daily evaluation for pressure ulcers. PROPHYLAXIS DVT- Eliquis and compression stockings GI- not indicated CODE STATUS: DNR/DNI DISPOSITION: Patient will remain admitted in ICU for vasopressors and IV antibiotics with st rict I/O. Prognosis continues to be very poor
[2019-11-28] MEDS: Norepinephrine 16 MG in Dextrose 5% in Water 234 ML IV SCH ×2 (17:48)
[2019-11-28] MEDS: LORazepam 2 MG/ML SDV IVPUSH PRN (20:16)
[2019-11-28] MEDS: Furosemide 40 MG/4 ML VIAL IVPUSH SCH (20:16)
[2019-11-29] MEDS: LORazepam 2 MG/ML SDV IVPUSH PRN ×3 (00:14→20:49)
[2019-11-29] MEDS: Piperacillin/Tazobactam 4.5 GM in Sodium Chloride 0.9% 100 ML IV SCH ×2 (00:29→13:31)
[2019-11-29] MEDS: Hydrocortisone Sodium Succinate 100 MG/2 ML SDV IVPUSH SCH ×4 (00:29→18:36)
--- NOTE | 2019-11-29 07:49 | PCM.PN ---
- General Info Date of Service: 11/29/19 Subjective Update: INTERVAL HISTORY Overnight Events: - Was agitated late yesterday, given Ativan to which he responded appropriately and slept through the night - Given IV furosemide with improvement in urine output - O2 Sat dropped and patient had significant crackles on physical exam for which he was placed on BiPAP and NC was discontinued - BP improved, LR discontinued Vital Signs: MAP trend: 44-86 HR trend: 94-106 Tmax: 96.8-98.6 SatO2: >84% Drips and IVF: Norepinephrine @ 7mcg Vasopressin @0.035u Oxygen supplementation: BiPAP 12/8 FiO2 @60% I/Os: UO: 555 24h balance: +12,951 Balance since admission: +21, 814 BM: rectal tube in place New results: WBC down from 20.27 to 18.93, still with vacuoles and + bandemia Plt down from 79 to 35 Na down from 135 to 131 GFR down from 17 to 14 Lactic acid trending down, now 6 Digoxin level is low Infectious Disease: Antibiotics: Zosyn, day 3 Cultures: - Blood from 11/26 at 7:50AM + 3/4 with gram negative rods at 12 and 21h - Urine from admission + gram negative rods - Blood from 11/26 1800 NGTD Diet: Regular Lines and tubes: Suprapubic catheter, system exchanged on 11/24 Right internal jugular central line 11/26 Right radial arterial line 11/26 Rectal tube 11/27 - Patient Data Vitals - Most Recent: Last Vital Signs Temp 97.0 F 11/29/19 04:00 Pulse 107 H 11/29/19 07:00 Resp 30 H 11/29/19 07:30 BP 121/68 11/29/19 07:00 Pulse Ox 95 11/29/19 07:30 Weight - Most Recent: 78.471 kg - Exam Quality Assessment: Supplemental Oxygen, Central Line/PICC, Urine Catheter, DVT Prophylaxis, Skin Breakdown. No: Restraints General: Lethargic HEENT: Pupils Equal, Pupils Reactive. No: Mucous Membr. Moist/[place] (dry) Neck: Supple, Trachea Midline, No JVD, No Thyromegaly, +2 Carotid Pulse wo Bruit. No: Lymphadenopathy Lungs: Clear to Auscultation. No: Normal Respiratory Effort, Crackles, Rales, Rhonchi, Rub, Stridor, Wheezing Cardiovascular: Regular Rate, Regular Rhythm. No: Murmurs, Gallops, Rubs GI/Abdominal Exam: Normal Bowel Sounds, Soft, No Organomegaly, Distended, Hernia. No: Rigid Extremities: Normal Inspection, No Pedal Edema, Slow Capillary Refill Peripheral Pulses: 2+: Brachial (L), Brachial (R) Sepsis Event Note - Evaluation Sepsis Screening Result: Severe Sepsis Risk Possible Source of Sepsis: Genitourinary - Problem List & Annotations (1) Septic shock due to urinary tract infection SNOMED Code(s): 37297992 Code(s): A41.9 - SEPSIS, UNSPECIFIED ORGANISM; R65.21 - SEVERE SEPSIS WITH SEPTIC SHOCK; N39.0 - URINARY TRACT INFECTION, SITE NOT SPECIFIED Status: Acute Current Visit: Yes (2) UTI (urinary tract infection) SNOMED Code(s): 28023724 Code(s): N39.0 - URINARY TRACT INFECTION, SITE NOT SPECIFIED Status: Acute Priority: High Current Visit: No Qualifiers: Urinary tract infection type: acute cystitis Hematuria presence: without hematuria Qualified Code(s): N30.00 - Acute cystitis without hematuria (3) Leukopenia SNOMED Code(s): 67074505, 069144751 Code(s): D72.819 - DECREASED WHITE BLOOD CELL COUNT, UNSPECIFIED Status: Acute Current Visit: Yes (4) Thrombocytopenia SNOMED Code(s): 178555819 Code(s): D69.6 - THROMBOCYTOPENIA, UNSPECIFIED Status: Acute Current Visit: Yes (5) H/O femoral vein thrombosis SNOMED Code(s): 348382968 Code(s): Z86.718 - PERSONAL HISTORY OF OTHER VENOUS THROMBOSIS AND EMBOLISM Status: Acute Current Visit: Yes (6) Lactic acid acidosis SNOMED Code(s): 71760586 Code(s): E87.2 - ACIDOSIS Status: Acute Current Visit: Yes (7) Acute kidney injury SNOMED Code(s): 75301080, 75535808 Code(s): N17.9 - ACUTE KIDNEY FAILURE, UNSPECIFIED Status: Acute Current Visit: Yes (8) Suprapubic catheter SNOMED Code(s): 818908792, 205135528 Code(s): Z93.59 - OTHER CYSTOSTOMY STATUS Status: Acute Current Visit: Yes (9) Chronic anticoagulation SNOMED Code(s): 916487931 Code(s): Z79.01 - RESIDENT CARE TECHNICIAN (CURRENT) USE OF ANTICOAGULANTS Status: Acute Current Visit: Yes (10) Hypertension SNOMED Code(s): 89169418 Code(s): I10 - ESSENTIAL (PRIMARY) HYPERTENSION Status: Acute Current Visit: Yes (11) GERD (gastroesophageal reflux disease) SNOMED Code(s): 709682914 Code(s): K21.9 - GASTRO-ESOPHAGEAL REFLUX DISEASE WITHOUT ESOPHAGITIS Status: Acute Current Visit: Yes (12) Hypothyroidism SNOMED Code(s): 60108765 Code(s): E03.9 - HYPOTHYROIDISM, UNSPECIFIED Status: Acute Current Visit: Yes (13) Cognitive deficits SNOMED Code(s): 623998821 Code(s): R41.89 - OTH SYMPTOMS AND SIGNS W COGNITIVE FUNCTIONS AND AWARENESS Status: Acute Current Visit: Yes (14) [facility] resident SNOMED Code(s): 708054931 Code(s): Z59.3 - PROBLEMS RELATED TO LIVING IN RESIDENTIAL INSTITUTION Status: Acute Current Visit: Yes (15) Elevated troponin SNOMED Code(s): 431399172, 951708709, 918223035 Code(s): R79.89 - OTHER SPECIFIED ABNORMAL FINDINGS OF BLOOD CHEMISTRY Status: Acute Current Visit: No (16) Fall at [facility] SNOMED Code(s): 916354696 Code(s): W19.XXXA - UNSPECIFIED FALL, INITIAL ENCOUNTER; Y92.129 - UNSP PLACE IN HALFWAY PLACE Status: Acute Current Visit: No (17) High anion gap metabolic acidosis SNOMED Code(s): 05763925 Code(s): E87.2 - ACIDOSIS Status: Acute Current Visit: No (18) Refractory shock SNOMED Code(s): 808202415 Code(s): R57.9 - SHOCK, UNSPECIFIED Status: Acute Current Visit: Yes (19) Bacteremia due to Gram-negative bacteria SNOMED Code(s): 078730354404 Code(s): R78.81 - BACTEREMIA Status: Acute Current Visit: Yes (20) Acute hypoxemic respiratory failure SNOMED Code(s): 972634526 Code(s): J96.01 - ACUTE RESPIRATORY FAILURE WITH HYPOXIA Status: Acute Current Visit: Yes (21) Sepsis due to gram-negative UTI SNOMED Code(s): 720478869 Code(s): A41.50 - GRAM-NEGATIVE SEPSIS, UNSPECIFIED; N39.0 - URINARY TRACT INFECTION, SITE NOT SPECIFIED Status: Acute Current Visit: Yes (22) Acute respiratory acidosis SNOMED Code(s): 56096296 Code(s): E87.2 - ACIDOSIS Status: Acute Current Visit: Yes (23) Thrombocytopenia SNOMED Code(s): 149087381 Code(s): D69.6 - THROMBOCYTOPENIA, UNSPECIFIED Status: Acute Current Visit: Yes - Problem List Review Problem List Initiated/Reviewed/Updated: Yes - Assessment Assessment:: 11/27/2019 This is an 89-year-old [facility] resident who was brought to the ED via EMS after being found down by [facility] staff. As per staff reports patient was found down around 3 AM, documenting low BP however patient was found to be normotensive by EMS with SBP in 150s Staff also stated patient was confused, normal baseline. Vital signs upon admission to the emergency department with a heart rate of 104, temp of 98.6, mean arterial pressure 161, pulse ox of 90 Orthostatic vital signs positive Repeat blood pressure with a map of 66 Lab results White count 2.44 with 78% neutrophils and 1% bands Platelets 122 MCV 102.8 with MCHC 33.3 INR 1.18 Anion gap 19.7, CO2 19 GFR 34 Lactic acid 10.1 Phosphorus 1.9 Magnesium 1.9 LFTs: Total bilirubin 1.8, AST 273, ALT 308, alkaline phosphatase 97 Troponin I 0.061 Total protein 5.8 and albumin 2.7 Urinalysis: Pain, slightly cloudy, pH 7.5, 2+ protein, 3+ occult blood, positive nitrites, 2+ leukocyte esterase, over 100 RBCs, 10-20 WBCs, few triple phosphate crystals, many amorphous sediment, moderate urinary bacteria COVID test negative Chest x-ray within normal limits Sepsis alert was called and patient was started on Zosyn, fluid bolus as per ideal body weight is 2600 mL's of LR Discussed case with niece who is MPOA and she stated that you would not want to pursue any active cardiovascular work-up for which troponins will not be trended. Upon admission to the ED patient was described as being lethargic and unresponsive - Upon my evaluation patient is responsive and answering questions ASSINIBOINE AND [place]BES II score of 23 with predicted rate of 46% Admission plan - Start Zosyn - Pancultured prior to antibiotics - LR bolus according to IBW--> 2.5L - LR @ 250 - Repeat lactic acid every 3 hours until less than 2 - Norepinephrine drip started after central line placed - Arterial line placed - Continue Xarelto - Hold home BP and rate control medications Lactic acid continued to trend upwards and required multiple fluid bolus 11/28/2019 Had decrease in pulse oximetry overnight and was placed on NC around 3AM and has been on it - He was given multiple IVF bolus with a positive balance of over 10L - His urinary output has been minimal likely 2/2 hypovolemia BP continues to be borderline, patient on max norepinephrine--> added vasopressin and hydrocortisone - Tapered off IVF due to significantly positive balance AMANDA worsened with minimal urine output - Given IV lasix which improved urine output, >500mL Worsened respiratory distress with respiratory acidosis on ABGs--> placed on BiPAP - Repeat CXR without significant abnormalities Neutrophils with vacuoles and toxic granulation - Admission procalcitonin >50 (multifactorial) Echocardiogram performed due to bacteremia Blood cultures from admission 07/08 + from gram negative rods Urine culture + gram negative rods Zosyn day 2 Acute thrombocytopenia likely from consumption - Plan Plan:: Neurology: Minimize central acting medications as possible. Let me sleep protocol as much as possible Start Seroquel 12.5mg Respiratory: Continue BiPAP and taper as tolerated Goal O2 sat >88% Aspiration precautions Cardiovascular: Sepsis protocol. Continue norepinephrine, vasopressin and hydrocortisone MAP goal >65 GI and Nutrition: Regular diet as tolerated Rectal tube care Kidney and Electrolytes: Strict monitoring of intake, output and overall fluid balance. Maintain neutral as possible. Avoid nephrotoxic medications. Medications to be dosed according to renal function. Monitor electrolytes and replace as needed. Trend creatinine and BUN. Lasix 40mg IV BID Endocrine: Scheduled Accu-checks if oral intake drops more Hypoglycemia protocol in place. Infectious Disease: Trend temperature. Panculture if febrile. Follow up on cultures from admission and repeat same day Continue antibiotic regimen with Zosyn for now. Procalcitonin every 48 hours F/U echocardiogram report Repeat cultures at 48 hours from initial + results Hematology and Coagulation: No active bleeding, no coagulopathy to correct, no need to transfuse blood products at the moment. Goal hemoglobin >7g Hold Eliquis Musculoskeletal and Skin: Bed turn rotation by nursing staff. Daily evaluation for pressure ulcers. PROPHYLAXIS DVT- compression stockings GI- not indicated CODE STATUS: DNR/DNI DISPOSITION: Patient will remain admitted in ICU for vasopressors and IV antibiotics with strict I/O. Prognosis continues to be very poor
[2019-11-29] MEDS: Furosemide 40 MG/4 ML VIAL IVPUSH SCH ×2 (08:26→20:00)
[2019-11-29] MEDS: Apixaban 2.5 MG Tab PO SCH ×2 (08:26→10:02)
[2019-11-29] MEDS: Norepinephrine 16 MG in Dextrose 5% in Water 234 ML IV SCH ×2 (20:10)
[2019-11-30] MEDS: Piperacillin/Tazobactam 4.5 GM in Sodium Chloride 0.9% 100 ML IV SCH ×2 (01:32→13:37)
[2019-11-30] MEDS: Hydrocortisone Sodium Succinate 100 MG/2 ML SDV IVPUSH SCH ×3 (01:32→13:37)
[2019-11-30] MEDS: LORazepam 2 MG/ML SDV IVPUSH PRN ×3 (01:32→23:05)
[2019-11-30] MEDS: Furosemide 40 MG/4 ML VIAL IVPUSH SCH (08:43)
--- NOTE | 2019-11-30 15:43 | PCM.PN ---
- General Info Date of Service: 11/30/19 Subjective Update: INTERVAL HISTORY Overnight Events: - BiPAP all day - Had some agitation overnight and was given Ativan which resolved it - Urine output has improved - Off pressors since 10PM Vital Signs: MAP trend: 65-90 HR trend: 65-90 Tmax: 96.5-97.2 SatO2: >90% Drips and IVF: Norepinephrine and vasopressin have been off since 10PM Oxygen supplementation: BiPAP 12/8 FiO2 @40% I/Os: UO: 1,395 24h balance: -,455 Balance since admission: +,395 Rectal tube: 470 overnight New results: WBC down from 18.93 to 10.04 and few bands Platelets down from 35 to 16, no clumping Lymphocytes down from 36 to 270 Na up from 131 to 135 GFR down from 14 to 13 Lactic acid below 2 since 6AM today Magnesium down from 2.6 to 2.4 Infectious Disease: Antibiotics: Zosyn, day 3 Cultures: - Blood from 11/26 at 7:50AM + 3/4 with Proteus species - Urine from admission + Pseudomonas - Blood from 11/26 1800, 11/27 1100 and 11/28 at 700 NGTD Diet: Regular Lines and tubes: Suprapubic catheter, system exchanged on 11/24 Right internal jugular central line 11/26 Right radial arterial line 11/26 Rectal tube 11/27 - Patient Data Vitals - Most Recent: Last Vital Signs Temp 96.8 F L 11/30/19 12:00 Pulse 97 11/30/19 12:00 Resp 21 H 11/30/19 14:15 BP 106/76 11/30/19 14:00 Pulse Ox 94 L 11/30/19 15:19 Weight - Most Recent: 83.733 kg - Exam Quality Assessment: Supplemental Oxygen, Central Line/PICC, Urine Catheter, DVT Prophylaxis, Skin Breakdown General: Lethargic HEENT: Pupils Equal, Pupils Reactive. No: Mucous Membr. Moist/[place] (dry with BiPAP) Neck: Supple, Trachea Midline, No JVD. No: Lymphadenopathy Lungs: Decreased Breath Sounds. No: Crackles, Rales, Rhonchi, Rub, Stridor, Wheezing Cardiovascular: Regular Rate, Regular Rhythm. No: Murmurs, Gallops, Rubs GI/Abdominal Exam: Normal Bowel Sounds, Soft, Distended, Hernia Extremities: Pedal Edema (1+ on RLE), Pallor Peripheral Pulses: 2+: Radial (L), Radial (R) Sepsis Event Note - Evaluation Sepsis Screening Result: No Definite Risk - Problem List & Annotations (1) Septic shock due to urinary tract infection SNOMED Code(s): 23919636 Code(s): A41.9 - SEPSIS, UNSPECIFIED ORGANISM; R65.21 - SEVERE SEPSIS WITH SEPTIC SHOCK; N39.0 - URINARY TRACT INFECTION, SITE NOT SPECIFIED Status: Acute Current Visit: Yes (2) UTI (urinary tract infection) SNOMED Code(s): 24181099 Code(s): N39.0 - URINARY TRACT INFECTION, SITE NOT SPECIFIED Status: Acute Priority: High Current Visit: No Qualifiers: Urinary tract infection type: acute cystitis Hematuria presence: without hematuria Qualified Code(s): N30.00 - Acute cystitis without hematuria (3) Leukopenia SNOMED Code(s): 72299472, 316572311 Code(s): D72.819 - DECREASED WHITE BLOOD CELL COUNT, UNSPECIFIED Status: Acute Current Visit: Yes (4) Thrombocytopenia SNOMED Code(s): 185805327 Code(s): D69.6 - THROMBOCYTOPENIA, UNSPECIFIED Status: Acute Current Visit: Yes (5) H/O femoral vein thrombosis SNOMED Code(s): 038715578 Code(s): Z86.718 - PERSONAL HISTORY OF OTHER VENOUS THROMBOSIS AND EMBOLISM Status: Acute Current Visit: Yes (6) Lactic acid acidosis SNOMED Code(s): 24575119 Code(s): E87.2 - ACIDOSIS Status: Acute Current Visit: Yes (7) Acute kidney injury SNOMED Code(s): 84919539, 85816995 Code(s): N17.9 - ACUTE KIDNEY FAILURE, UNSPECIFIED Status: Acute Current Visit: Yes (8) Suprapubic catheter SNOMED Code(s): 414042437, 410190307 Code(s): Z93.59 - OTHER CYSTOSTOMY STATUS Status: Acute Current Visit: Yes (9) Chronic anticoagulation SNOMED Code(s): 818640804 Code(s): Z79.01 - AREA COUNSELOR (CURRENT) USE OF ANTICOAGULANTS Status: Acute Current Visit: Yes (10) Hypertension SNOMED Code(s): 70149799 Code(s): I10 - ESSENTIAL (PRIMARY) HYPERTENSION Status: Acute Current Vis it: Yes (11) GERD (gastroesophageal reflux disease) SNOMED Code(s): 778053103 Code(s): K21.9 - GASTRO-ESOPHAGEAL REFLUX DISEASE WITHOUT ESOPHAGITIS Status: Acute Current Visit: Yes (12) Hypothyroidism SNOMED Code(s): 79714553 Code(s): E03.9 - HYPOTHYROIDISM, UNSPECIFIED Status: Acute Current Visit: Yes (13) Cognitive deficits SNOMED Code(s): 527934502 Code(s): R41.89 - OTH SYMPTOMS AND SIGNS W COGNITIVE FUNCTIONS AND AWARENESS Status: Acute Current Visit: Yes (14) longterm resident SNOMED Code(s): 199970098 Code(s): Z59.3 - PROBLEMS RELATED TO LIVING IN RESIDENTIAL INSTITUTION Status: Acute Current Visit: Yes (15) Elevated troponin SNOMED Code(s): 113961839, 716820781, 233999341 Code(s): R79.89 - OTHER SPECIFIED ABNORMAL FINDINGS OF BLOOD CHEMISTRY Status: Acute Current Visit: No (16) Fall at correction SNOMED Code(s): 999556738 Code(s): W19.XXXA - UNSPECIFIED FALL, INITIAL ENCOUNTER; Y92.129 - UNSP PLACE IN GROUP HOME PLACE Status: Acute Current Visit: No (17) High anion gap metabolic acidosis SNOMED Code(s): 20691027 Code(s): E87.2 - ACIDOSIS Status: Acute Current Visit: No (18) Refractory shock SNOMED Code(s): 623374870 Code(s): R57.9 - SHOCK, UNSPECIFIED Status: Acute Current Visit: Yes (19) Bacteremia due to Gram-negative bacteria SNOMED Code(s): 965532845737 Code(s): R78.81 - BACTEREMIA Status: Acute Current Visit: Yes (20) Acute hypoxemic respiratory failure SNOMED Code(s): 948615119 Code(s): J96.01 - ACUTE RESPIRATORY FAILURE WITH HYPOXIA Status: Acute Current Visit: Yes (21) Sepsis due to gram-negative UTI SNOMED Code(s): 953465216 Code(s): A41.50 - GRAM-NEGATIVE SEPSIS, UNSPECIFIED; N39.0 - URINARY TRACT INFECTION, SITE NOT SPECIFIED Status: Acute Current Visit: Yes (22) Acute respiratory acidosis SNOMED Code(s): 23256255 Code(s): E87.2 - ACIDOSIS Status: Acute Current Visit: Yes (23) Thrombocytopenia SNOMED Code(s): 503128785 Code(s): D69.6 - THROMBOCYTOPENIA, UNSPECIFIED Status: Acute Current Visit: Yes - Problem List Review Problem List Initiated/Reviewed/Updated: Yes - Assessment Assessment:: 11/27/2019 This is an 89-year-old correction resident who was brought to the ED via EMS after being found down by correction staff. As per staff reports patient was found down around 3 AM, documenting low BP [facility] patient was found to be normotensive by EMS with SBP in 150s Staff also stated patient was confused, normal baseline. Vital signs upon admission to the emergency department with a heart rate of 104, temp of 98.6, mean arterial pressure 161, pulse ox of 90 Orthostatic vital signs positive Repeat blood pressure with a map of 66 Lab results White count 2.44 with 78% neutrophils and 1% bands Platelets 122 MCV 102.8 with MCHC 33.3 INR 1.18 Anion gap 19.7, CO2 19 GFR 34 Lactic acid 10.1 Phosphorus 1.9 Magnesium 1.9 LFTs: Total bilirubin 1.8, AST 273, ALT 308, alkaline phosphatase 97 Troponin I 0.061 Total protein 5.8 and albumin 2.7 Urinalysis: Pain, slightly cloudy, pH 7.5, 2+ protein, 3+ occult blood, positive nitrites, 2+ leukocyte esterase, over 100 RBCs, 10-20 WBCs, few triple phosphate crystals, many amorphous sediment, moderate urinary bacteria COVID test negative Chest x-ray within normal limits Sepsis alert was called and patient was started on Zosyn, fluid bolus as per ideal body weight is 2600 mL's of LR Discussed case with niece who is MPOA and she stated that you would not want to pursue any active cardiovascular work-up for which troponins will not be trended. Upon admission to the ED patient was described as being lethargic and unresponsive - Upon my evaluation patient is responsive and answering questions [place] II score of 23 with predicted rate of 46% Admission plan - Start Zosyn - Pancultured prior to antibiotics - LR bolus according to IBW--> 2.5L - LR @ 250 - Repeat lactic acid every 3 hours until less than 2 - Norepinephrine drip started after central line placed - Arterial line placed - Continue Xarelto - Hold home BP and rate control medications Lactic acid continued to trend upwards and required multiple fluid bolus 11/28/2019 Overnight Events: - Was agitated late yesterday, given Ativan to which he responded appropriately and slept through the night - Given IV furosemide with improvement in urine output - O2 Sat dropped and patient had significant crackles on physical exam for which he was placed on BiPAP and NC was discontinued - BP improved, LR discontinued Had decrease in pulse oximetry overnight and was placed on NC around 3AM and has been on it - He was given multiple IVF bolus with a positive balance of over 10L - His urinary output has been minimal likely 2/2 hypovolemia BP continues to be borderline, patient on max norepinephrine--> added vasopressin and hydrocortisone - Tapered off IVF due to significantly positive balance AMANDA worsened with minimal urine output - Given IV lasix which improved urine output, >500mL Worsened respiratory distress with respiratory acidosis on ABGs--> placed on BiPAP - Repeat CXR without significant abnormalities Neutrophils with vacuoles and toxic granulation - Admission procalcitonin >50 (multifactorial) Vital Signs: - MAP trend: 44-86 - HR trend: 94-106 - Tmax: 96.8-98.6 - SatO2: >84% Drips and IVF: - Norepinephrine @ 7mcg - Vasopressin @0.035u I/Os: - UO: 555 - 24h balance: +12,951 - Balance since admission: +21, 814 - BM: rectal tube in place Labs: - WBC down from 20.27 to 18.93, still with vacuoles and + bandemia - Plt down from 79 to 35 - Na down from 135 to 131 - GFR down from 17 to 14 - Lactic acid trending down, now 6 - Digoxin level is low Cultures: - Blood from 11/26 at 7:50AM + 3/4 with gram negative rods at 12 and 21h - Urine from admission + gram negative rods - Blood from 11/26 1800 NGTD PLAN Echocardiogram performed due to bacteremia Blood cultures from admission 07/08 + from gram negative rods Urine culture + gram negative rods Zosyn day 2 Acute thrombocytopenia likely from consumption 11/29/2019 Was on BiPAP all day with FiO2 tapered down to 50% BP stable throughout the day--> vasopressors discontinued at 2200 Platelets continue to trend down - No heparin use - No signs of spontaneous bleeding Urine output continue to improve throughout the day Discussion had with nimartin regarding his prognosis, will continue to update daily Lactic acid continues to trend down Vital Signs: - MAP trend: 65-90 - HR trend: 65-90 - Tmax: 96.5-97.2 - SatO2: >90% I/Os: - UO: 1,395 - 24h balance: -1,455 - Balance since admission: +20,395 - Rectal tube: 470 overnight Microbiology - Blood from 11/26 at 7:50AM + 3/4 with Proteus species - Urine from admission + Pseudomonas - Blood from 11/26 1800, 11/27 1100 and 11/28 at 700 NGTD PLAN - Continue BiPAP and taper as tolerated - Continue norepinephrine, vasopressin and hydrocortisone - Lasix 40mg IV BID - Continue antibiotic regimen with Zosyn for now. - F/U echocardiogram report - Repeat cultures today - Hold Eliquis - Zosyn day 3 11/30/2019 Labs: - WBC down from 18.93 to 10.04 and few bands - Platelets down from 35 to 16, no clumping - Lymphocytes down from 36 to 270 - Na up from 131 to 135 - GFR down from 14 to 13 - Lactic acid below 2 since 6AM today - Magnesium down from 2.6 to 2.4 - Plan Plan:: Neurology: Minimize central acting medications as possible. Let me sleep protocol as much as possible Start Seroquel 12.5mg Respiratory: Continue BiPAP and taper as tolerated Goal O2 sat >88% Aspiration precautions Cardiovascular: Sepsis protocol. Discontinue hydrocortisone MAP goal >65 GI and Nutrition: Regular diet as tolerated Rectal tube care Kidney and Electrolytes: Strict monitoring of intake, output and overall fluid balance. Maintain neutral as possible. Avoid nephrotoxic medications. Medications to be dosed according to renal function. Monitor electrolytes and replace as needed. Trend creatinine and BUN. Lasix 40mg IV BID Endocrine: Scheduled Accu-checks q6h while NPO Hypoglycemia protocol in place. Infectious Disease: Trend temperature. Panculture if febrile. Continue antibiotic regimen with Zosyn for now. Procalcitonin every 48 hours F/U echocardiogram report Hematology and Coagulation: No active bleeding, no coagulopathy to correct, no need to transfuse blood products at the moment. Goal hemoglobin >7g Hold Eliquis Coagulation studies Musculoskeletal and Skin: Bed turn rotation by nursing staff. Daily evaluation for pressure ulcers. PROPHYLAXIS DVT- compression stockings GI- not indicated CODE STATUS: DNR/DNI DISPOSITION: Patient will remain admitted in ICU for vasopressors and IV antibiotics with strict I/O. Prognosis continues to be very poor
[2019-11-30] MEDS ORDERED: Furosemide 20 MG/2 ML VIAL IVPUSH STA (16:00)
[2019-11-30] MEDS ORDERED: Morphine 2 MG/ML SYRINGE ONE (17:45)
[2019-11-30] MEDS ORDERED: Albuterol 0.083% 2.5 MG/3 ML Neb Soln NEB PRN (17:54)
[2019-11-30] MEDS ORDERED: Atropine 1% Ophth Soln 5 ML BOTTLE SL PRN (17:54)
[2019-11-30] MEDS ORDERED: Lactoperoxi/Gluc Oxid/Pot Thio 42 GM Tube MUCMEM PRN (17:54)
[2019-11-30] MEDS ORDERED: Carboxymethylcellulose Sodium 1% Ophth Gel 15 ML Bottle EYEBOTH PRN (17:54)
[2019-11-30] MEDS ORDERED: Acetaminophen 325 MG Tab PO PRN (17:54)
[2019-11-30] MEDS ORDERED: Metoclopramide 10 MG Tab PO PRN (17:54)
[2019-11-30] MEDS ORDERED: Metoclopramide 10 MG/2 ML SDV IVPUSH PRN (17:54)
[2019-11-30] MEDS ORDERED: Scopolamine 1.5 MG Transdermal Patch TRDERM PRN (17:54)
[2019-11-30] MEDS ORDERED: Haloperidol Lactate 5 MG/ML SDV IVPUSH PRN (17:54)
[2019-11-30] MEDS ORDERED: Furosemide 100 MG/10 ML SDV IVPUSH SCH (21:00)
[2019-12-01] MEDS: LORazepam 2 MG/ML SDV IVPUSH PRN ×4 (05:06→20:43)
[2019-12-01] MEDS ORDERED: Atropine Sulfate Ophth 2 ML Drops SL PRN (07:08)
[2019-12-01] MEDS: Morphine 2 MG/ML SYRINGE IVPUSH PRN ×2 (08:03→14:16)
[2019-12-01] MEDS: Atropine 1% Ophth Soln 5 ML BOTTLE SL PRN (14:15)
--- NOTE | 2019-12-01 18:28 | PCM.PN ---
- General Info Date of Service: 12/01/19 Subjective Update: Case discussed with patient's niece Decision was made to discontinue BiPAP Code status changed Patient has been asleep and unarousable since then but maintaining airway - Patient Data Vitals - Most Recent: Last Vital Signs Temp 97.1 F 12/01/19 08:37 Pulse 98 12/01/19 08:37 Resp 24 H 12/01/19 08:37 BP 129/98 H 12/01/19 08:37 Pulse Ox 90 L 12/01/19 08:37 Weight - Most Recent: 83.733 kg - Exam General: Sedated Neck: Trachea Midline, No JVD Lungs: Decreased Breath Sounds, Crackles, Rales. No: Rhonchi, Rub, Stridor, Wheezing Cardiovascular: Regular Rate, Regular Rhythm. No: Murmurs, Gallops, Rubs GI/Abdominal Exam: Normal Bowel Sounds, Distended, Hernia Peripheral Pulses: 2+: Radial (L), Radial (R) Sepsis Event Note - Evaluation Sepsis Screening Result: Severe Sepsis Risk - Problem List & Annotations (1) Septic shock due to urinary tract infection SNOMED Code(s): 92250088 Code(s): A41.9 - SEPSIS, UNSPECIFIED ORGANISM; R65.21 - SEVERE SEPSIS WITH SEPTIC SHOCK; N39.0 - URINARY TRACT INFECTION, SITE NOT SPECIFIED Status: Acute Current Visit: Yes (2) UTI (urinary tract infection) SNOMED Code(s): 73453468 Code(s): N39.0 - URINARY TRACT INFECTION, SITE NOT SPECIFIED Status: Acute Priority: High Current Visit: No Qualifiers: Urinary tract infection type: acute cystitis Hematuria presence: without hematuria Qualified Code(s): N30.00 - Acute cystitis without hematuria (3) Leukopenia SNOMED Code(s): 38699730, 916961982 Code(s): D72.819 - DECREASED WHITE BLOOD CELL COUNT, UNSPECIFIED Status: Acute Current Visit: Yes (4) Thrombocytopenia SNOMED Code(s): 955802092 Code(s): D69.6 - THROMBOCYTOPENIA, UNSPECIFIED Status: Acute Current Visit: Yes (5) H/O femoral vein thrombosis SNOMED Code(s): 620821473 Code(s): Z86.718 - PERSONAL HISTORY OF OTHER VENOUS THROMBOSIS AND EMBOLISM Status: Acute Current Visit: Yes (6) Lactic acid acidosis SNOMED Code(s): 15986538 Code(s): E87.2 - ACIDOSIS Status: Acute Current Visit: Yes (7) Acute kidney injury SNOMED Code(s): 30981595, 01951421 Code(s): N17.9 - ACUTE KIDNEY FAILURE, UNSPECIFIED Status: Acute Current Visit: Yes (8) Suprapubic catheter SNOMED Code(s): 976931591, 720799080 Code(s): Z93.59 - OTHER CYSTOSTOMY STATUS Status: Acute Current Visit: Yes (9) Chronic anticoagulation SNOMED Code(s): 604862397 Code(s): Z79.01 - EDGING MACHINE SETTER (CURRENT) USE OF ANTICOAGULANTS Status: Acute Current Visit: Yes (10) Hypertension SNOMED Code(s): 98774569 Code(s): I10 - ESSENTIAL (PRIMARY) HYPERTENSION Status: Acute Current Visit: Yes (11) GERD (gastroesophageal reflux disease) SNOMED Code(s): 130432638 Code(s): K21.9 - GASTRO-ESOPHAGEAL REFLUX DISEASE WITHOUT ESOPHAGITIS Status: Acute Current Visit: Yes (12) Hypothyroidism SNOMED Code(s): 27865897 Code(s): E03.9 - HYPOTHYROIDISM, UNSPECIFIED Status: Acute Current Visit: Yes (13) Cognitive deficits SNOMED Code(s): 293128070 Code(s): R41.89 - OTH SYMPTOMS AND SIGNS W COGNITIVE FUNCTIONS AND AWARENESS Status: Acute Current Visit: Yes (14) longterm resident SNOMED Code(s): 291056370 Code(s): Z59.3 - PROBLEMS RELATED TO LIVING IN RESIDENTIAL INSTITUTION Status: Acute Current Visit: Yes (15) Elevated troponin SNOMED Code(s): 979395666, 651917040, 530803823 Code(s): R79.89 - OTHER SPECIFIED ABNORMAL FINDINGS OF BLOOD CHEMISTRY Status: Acute Current Visit: No (16) Fall at intermediate SNOMED Code(s): 008510496 Code(s): W19.XXXA - UNSPECIFIED FALL, INITIAL ENCOUNTER; Y92.129 - UNSP PLACE IN [facility] Status: Acute Current Visit: No (17) High anion gap metabolic acidosis SNOMED Code(s): 45353436 Code(s): E87.2 - ACIDOSIS Status: Acute Current Visit: No (18) Refractory shock SNOMED Code(s): 428679769 Code(s): R57.9 - SHOCK, UNSPECIFIED Status: Acute Current Visit: Yes (19) Bacteremia due to Gram-negative bacteria SNOMED Code(s): 191913002035 Code(s): R78.81 - BACTEREMIA Status: Acute Current Visit: Yes (20) Acute hypoxemic respiratory failure SNOMED Code(s): 018250994 Code(s): J96.01 - ACUTE RESPIRATORY FAILURE WITH HYPOXIA Status: Acute Current Visit: Yes (21) Sepsis due to gram-negative UTI SNOMED Code(s): 838000698 Code(s): A41.50 - GRAM-NEGATIVE SEPSIS, UNSPECIFIED; N39.0 - URINARY TRACT INFECTION, SITE NOT SPECIFIED Status: Acute Current Visit: Yes (22) Acute respiratory acidosis SNOMED Code(s): 97345104 Code(s): E87.2 - ACIDOSIS Status: Acute Current Visit: Yes (23) Thrombocytopenia SNOMED Code(s): 575093691 Code(s): D69.6 - THROMBOCYTOPENIA, UNSPECIFIED Status: Acute Current Visit: Yes - Problem List Review Problem List Initiated/Reviewed/Updated: Yes - Assessment Assessment:: 11/27/2019 This is an 89-year-old intermediate resident who was brought to the ED via EMS after being found down by intermediate staff. As per staff reports patient was found down around 3 AM, documenting low BP however patient was found to be normotensive by EMS with SBP in 150s Staff also stated patient was confused, normal baseline. Vital signs upon admission to the emergency department with a heart rate of 104, temp of 98.6, mean arterial pressure 161, pulse ox of 90 Orthostatic vital signs positive Repeat blood pressure with a map of 66 Lab results White count 2.44 with 78% neutrophils and 1% bands Platelets 122 MCV 102.8 with MCHC 33.3 INR 1.18 Anion gap 19.7, CO2 19 GFR 34 Lactic acid 10.1 Phosphorus 1.9 Magnesium 1.9 LFTs: Total bilirubin 1.8, AST 273, ALT 308, alkaline phosphatase 97 Troponin I 0.061 Total protein 5.8 and albumin 2.7 Urinalysis: Pain, slightly cloudy, pH 7.5, 2+ protein, 3+ occult blood, positive nitrites, 2+ leukocyte esterase, over 100 RBCs, 10-20 WBCs, few triple phosphate crystals, many amorphous sediment, moderate urinary bacteria COVID test negative Chest x-ray within normal limits Sepsis alert was called and patient was started on Zosyn, fluid bolus as per ideal body weight is 2600 mL's of LR Discussed case with niece who is MPOA and she stated that you would not want to pursue any active cardiovascular work-up for which troponins will not be trended. Upon admission to the ED patient was described as being lethargic and unresponsive - Upon my evaluation patient is responsive and answering questions [place] II score of 23 with predicted rate of 46% Admission plan - Start Zosyn - Pancultured prior to antibiotics - LR bolus according to IBW--> 2.5L - LR @ 250 - Repeat lactic acid every 3 hours until less than 2 - Norepinephrine drip started after central line placed - Arterial line placed - Continue Xarelto - Hold home BP and rate control medications Lactic acid continued to trend upwards and required multiple fluid bolus 11/28/2019 Overnight Events: - Was agitated late yesterday, given Ativan to which he responded appropriately and slept through the night - Given IV furosemide with improvement in urine output - O2 Sat dropped and patient had significant crackles on physical exam for which he was placed on BiPAP and NC was discontinued - BP improved, LR discontinued Had decrease in pulse oximetry overnight and was placed on NC around 3AM and has been on it - He was given multiple IVF bolus with a positive balance of over 10L - His urinary output has been minimal likely 2/2 hypovolemia BP continues to be borderline, patient on max norepinephrine--> added vasopressin and hydrocortisone - Tapered off IVF due to significantly positive balance AMANDA worsened with minimal urine output - Given IV lasix which improved urine output, >500mL Worsened respiratory distress with respiratory acidosis on ABGs--> placed on BiPAP - Repeat CXR without significant abnormalities Neutrophils with vacuoles and toxic granulation - Admission procalcitonin >50 (multifactorial) Vital Signs: - MAP trend: 44-86 - HR trend: 94-106 - Tmax: 96.8-98.6 - SatO2: >84% Drips and IVF: - Norepinephrine @ 7mcg - Vasopressin @0.035u I/Os: - UO: 555 - 24h balance: +12,951 - Balance since admission: +21, 814 - BM: rectal tube in place Labs: - WBC down from 20.27 to 18.93, still with vacuoles and + bandemia - Plt down from 79 to 35 - Na down from 135 to 131 - GFR down from 17 to 14 - Lactic acid trending down, now 6 - Digoxin level is low Cultures: - Blood from 11/26 at 7:50AM + 3/4 with gram negative rods at 12 and 21h - Urine from admission + gram negative rods - Blood from 11/26 1800 NGTD PLAN Echocardiogram performed due to bacteremia Blood cultures from admission 07/08 + from gram negative rods Urine culture + gram negative rods Zosyn day 2 Acute thrombocytopenia likely from consumption 11/29/2019 Was on BiPAP all day with FiO2 tapered down to 50% BP stable throughout the day--> vasopressors discontinued at 2200 Platelets continue to trend down - No heparin use - No signs of spontaneous bleeding Urine output continue to improve throughout the day Discussion had with niece regarding his prognosis, will continue to update daily Lactic acid continues to trend down Vital Signs: - MAP trend: 65-90 - HR trend: 65-90 - Tmax: 96.5-97.2 - SatO2: >90% I/Os: - UO: 1,395 - 24h balance: -1,455 - Balance since admission: +20,395 - Rectal tube: 470 overnight Microbiology - Blood from 11/26 at 7:50AM + 3/4 with Proteus species - Urine from admission + Pseudomonas - Blood from 11/26 1800, 11/27 1100 and 11/28 at 700 NGTD PLAN - Continue BiPAP and taper as tolerated - Continue norepinephrine, vasopressin and hydrocortisone - Lasix 40mg IV BID - Continue antibiotic regimen with Zosyn for now. - F/U echocardiogram report - Repeat cultures today - Hold Eliquis - Zosyn day 3 11/30/2019 Labs: - WBC down from 18.93 to 10.04 and few bands - Platelets down from 35 to 16, no clumping - Lymphocytes down from 36 to 270 - Na up from 131 to 135 - GFR down from 14 to 13 - Lactic acid below 2 since 6AM today - Magnesium down from 2.6 to 2.4 Case discussed with patient's niece who asked BiPAP be removed and transition patient to comfort care status - BiPAP was removed and patient has tolerated this well with some changes in his oxygenation Mental status has not changed Comfort measures orders in for PRN medications 12/01/19 Has required a couple of Ativan doses and morphine Pulse ox has trended down slowly to high 80's low 90's - Plan Plan:: Comfort measures only status Suctioning as needed PRN medications for symptom control No prophylaxis indicated Regular diet, patient can eat whatever he wants Bed mobility as tolerated Vital signs with each shift Avoid unnecessary interruptions We will discuss palliative care consult in the morning CODE STATUS: Comfort measures only status DISPOSITION Patient will remain admitted for comfort measures with stabilization and referral to palliative care if feasible.
[2019-12-02] MEDS: Morphine 2 MG/ML SYRINGE IVPUSH PRN ×3 (00:46→20:39)
[2019-12-02] MEDS: Atropine 1% Ophth Soln 5 ML BOTTLE SL PRN ×2 (00:48→14:23)
[2019-12-02] MEDS: LORazepam 2 MG/ML SDV IVPUSH PRN (05:52)
[2019-12-02] MEDS: Lactoperoxi/Gluc Oxid/Pot Thio 42 GM Tube MUCMEM PRN ×3 (09:31→18:36)
--- NOTE | 2019-12-02 17:49 | PCM.PN ---
- General Info Date of Service: 12/02/19 Subjective Update: Still unarousable Required Ativan and morphine PRN - Patient Data Vitals - Most Recent: Last Vital Signs Temp 96 F L 12/02/19 07:54 Pulse 80 12/02/19 15:30 Resp 20 12/02/19 07:54 BP 116/74 12/02/19 07:54 Pulse Ox 94 L 12/02/19 15:30 - Exam General: Obtunded Lungs: Decreased Breath Sounds, Rales, Rhonchi. No: Crackles, Rub, Stridor, Wheezing Cardiovascular: Regular Rate, Regular Rhythm. No: Murmurs, Gallops, Rubs GI/Abdominal Exam: Distended, Hernia Sepsis Event Note - Evaluation Sepsis Screening Result: Severe Sepsis Risk - Problem List & Annotations (1) Comfort measures only status SNOMED Code(s): 69737086851514 Code(s): Z51.5 - ENCOUNTER FOR PALLIATIVE CARE Status: Acute Current Visit: Yes (2) Septic shock due to urinary tract infection SNOMED Code(s): 50657538 Code(s): A41.9 - SEPSIS, UNSPECIFIED ORGANISM; R65.21 - SEVERE SEPSIS WITH SEPTIC SHOCK; N39.0 - URINARY TRACT INFECTION, SITE NOT SPECIFIED Status: Acute Current Visit: Yes (3) UTI (urinary tract infection) SNOMED Code(s): 23604207 Code(s): N39.0 - URINARY TRACT INFECTION, SITE NOT SPECIFIED Status: Acute Priority: High Current Visit: No Qualifiers: Urinary tract infection type: acute cystitis Hematuria presence: without hematuria Qualified Code(s): N30.00 - Acute cystitis without hematuria (4) Leukopenia SNOMED Code(s): 30287947, 490872601 Code(s): D72.819 - DECREASED WHITE BLOOD CELL COUNT, UNSPECIFIED Status: Acute Current Visit: Yes (5) Thrombocytopenia SNOMED Code(s): 206955240 Code(s): D69.6 - THROMBOCYTOPENIA, UNSPECIFIED Status: Acute Current Visit: Yes (6) H/O femoral vein thrombosis SNOMED Code(s): 663091154 Code(s): Z86.718 - PERSONAL HISTORY OF OTHER VENOUS THROMBOSIS AND EMBOLISM Status: Acute Current Visit: Yes (7) Lactic acid acidosis SNOMED Code(s): 74555972 Code(s): E87.2 - ACIDOSIS Status: Acute Current Visit: Yes (8) Acute kidney injury SNOMED Code(s): 43573587, 25972433 Code(s): N17.9 - ACUTE KIDNEY FAILURE, UNSPECIFIED Status: Acute Current Visit: Yes (9) Suprapubic catheter SNOMED Code(s): 191035032, 143671564 Code(s): Z93.59 - OTHER CYSTOSTOMY STATUS Status: Acute Current Visit: Yes (10) Chronic anticoagulation SNOMED Code(s): 012617552 Code(s): Z79.01 - SENIOR CARE (CURRENT) USE OF ANTICOAGULANTS Status: Acute Current Visit: Yes (11) Hypertension SNOMED Code(s): 82790988 Code(s): I10 - ESSENTIAL (PRIMARY) HYPERTENSION Status: Acute Current Visit: Yes (12) GERD (gastroesophageal reflux disease) SNOMED Code(s): 743471791 Code(s): K21.9 - GASTRO-ESOPHAGEAL REFLUX DISEASE WITHOUT ESOPHAGITIS Status: Acute Current Visit: Yes (13) Hypothyroidism SNOMED Code(s): 18122224 Code(s): E03.9 - HYPOTHYROIDISM, UNSPECIFIED Status: Acute Current Visit: Yes (14) Cognitive deficits SNOMED Code(s): 532621343 Code(s): R41.89 - OTH SYMPTOMS AND SIGNS W COGNITIVE FUNCTIONS AND AWARENESS Status: Acute Current Visit: Yes (15) skilled nursing resident SNOMED Code(s): 340671022 Code(s): Z59.3 - PROBLEMS RELATED TO LIVING IN RESIDENTIAL INSTITUTION Status: Acute Current Visit: Yes (16) Elevated troponin SNOMED Code(s): 343510815, 208101718, 913486522 Code(s): R79.89 - OTHER SPECIFIED ABNORMAL FINDINGS OF BLOOD CHEMISTRY Status: Acute Current Visit: No (17) Fall at [facility] SNOMED Code(s): 866236628 Code(s): W19.XXXA - UNSPECIFIED FALL, INITIAL ENCOUNTER; Y92.129 - UNSP PLACE IN [place] PL[facility] Status: Acute Current Visit: No (18) High anion gap metabolic acidosis SNOMED Code(s): 46871336 Code(s): E87.2 - ACIDOSIS Status: Acute Current Visit: No (19) Refractory shock SNOMED Code(s): 569431169 Code(s): R57.9 - SHOCK, UNSPECIFIED Status: Acute Current Visit: Yes (20) Bacteremia due to Gram-negative bacteria SNOMED Code(s): 142750771253 Code(s): R78.81 - BACTEREMIA Status: Acute Current Visit: Yes (21) Acute hypoxemic respiratory failure SNOMED Code(s): 416690135 Code(s): J96.01 - ACUTE RESPIRATORY FAILURE WITH HYPOXIA Status: Acute Current Visit: Yes (22) Sepsis due to gram-negative UTI SNOMED Code(s): 040185160 Code(s): A41.50 - GRAM-NEGATIVE SEPSIS, UNSPECIFIED; N39.0 - URINARY TRACT INFECTION, SITE NOT SPECIFIED Status: Acute Current Visit: Yes (23) Acute respiratory acidosis SNOMED Code(s): 58502461 Code(s): E87.2 - ACIDOSIS Status: Acute Current Visit: Yes (24) Thrombocytopenia SNOMED Code(s): 319352293 Code(s): D69.6 - THROMBOCYTOPENIA, UNSPECIFIED Status: Acute Current Visit: Yes - Problem List Review Problem List Initiated/Reviewed/Updated: Yes - Assessment Assessment:: 11/27/2019 This is an 89-year-old [facility] resident who was brought to the ED via EMS after being found down by [facility] staff. As per staff reports patient was found down around 3 AM, documenting low BP however patient was found to be normotensive by EMS with SBP in 150s Staff also stated patient was confused, normal baseline. Vital signs upon admission to the emergency department with a heart rate of 104, temp of 98.6, mean arterial pressure 161, pulse ox of 90 Orthostatic vital signs positive Repeat blood pressure with a map of 66 Lab results White count 2.44 with 78% neutrophils and 1% bands Platelets 122 MCV 102.8 with MCHC 33.3 INR 1.18 Anion gap 19.7, CO2 19 GFR 34 Lactic acid 10.1 Phosphorus 1.9 Magnesium 1.9 LFTs: Total bilirubin 1.8, AST 273, ALT 308, alkaline phosphatase 97 Troponin I 0.061 Total protein 5.8 and albumin 2.7 Urinalysis: Pain, slightly cloudy, pH 7.5, 2+ protein, 3+ occult blood, positive nitrites, 2+ leukocyte esterase, over 100 RBCs, 10-20 WBCs, few triple phosphate crystals, many amorphous sediment, moderate urinary bacteria COVID test negative Chest x-ray within normal limits Sepsis alert was called and patient was started on Zosyn, fluid bolus as per ideal body weight is 2600 mL's of LR Discussed case with niece who is MPOA and she stated that you would not want to pursue any active cardiovascular work-up for which troponins will not be trended. Upon admission to the ED patient was described as being lethargic and unresponsive - Upon my evaluation patient is responsive and answering questions [place]OC II score of 23 with predicted rate of 46% Admission plan - Start Zosyn - Pancultured prior to antibiotics - LR bolus according to IBW--> 2.5L - LR @ 250 - Repeat lactic acid every 3 hours until less than 2 - Norepinephrine drip started after central line placed - Arterial line placed - Continue Xarelto - Hold home BP and rate control medications Lactic acid continued to trend upwards and required multiple fluid bolus 11/28/2019 Overnight Events: - Was agitated late yesterday, given Ativan to which he responded appropriately and slept through the night - Given IV furosemide with improvement in urine output - O2 Sat dropped and patient had significant crackles on physical exam for which he was placed on BiPAP and NC was discontinued - BP improved, LR discontinued Had decrease in pulse oximetry overnight and was placed on NC around 3AM and has been on it - He was given multiple IVF bolus with a positive balance of over 10L - His urinary output has been minimal likely 2/2 hypovolemia BP continues to be borderline, patient on max norepinephrine--> added vasopressin and hydrocortisone - Tapered off IVF due to significantly positive balance AMANDA worsened with minimal urine output - Given IV lasix which improved urine output, >500mL Worsened respiratory distress with respiratory acidosis on ABGs--> placed on BiPAP - Repeat CXR without significant abnormalities Neutrophils with vacuoles and toxic granulation - Admission procalcitonin >50 (multifactorial) Vital Signs: - MAP trend: 44-86 - HR trend: 94-106 - Tmax: 96.8-98.6 - SatO2: >84% Drips and IVF: - Norepinephrine @ 7mcg - Vasopressin @0.035u I/Os: - UO: 555 - 24h balance: +12,951 - Balance since admission: +21, 814 - BM: rectal tube in place Labs: - WBC down from 20.27 to 18.93, still with vacuoles and + bandemia - Plt down from 79 to 35 - Na down from 135 to 131 - GFR down from 17 to 14 - Lactic acid trending down, now 6 - Digoxin level is low Cultures: - Blood from 11/26 at 7:50AM + 3/4 with gram negative rods at 12 and 21h - Urine from admission + gram negative rods - Blood from 11/26 1800 NGTD PLAN Echocardiogram performed due to bacteremia Blood cultures from admission 07/08 + from gram negative rods Urine culture + gram negative rods Zosyn day 2 Acute thrombocytopenia likely from consumption 11/29/2019 Was on BiPAP all day with FiO2 tapered down to 50% BP stable throughout the day--> vasopressors discontinued at 2200 Platelets continue to trend down - No heparin use - No signs of spontaneous bleeding Urine output continue to improve throughout the day Discussion had with niece regarding his prognosis, will continue to update daily Lactic acid continues to trend down Vital Signs: - MAP trend: 65-90 - HR trend: 65-90 - Tmax: 96.5-97.2 - SatO2: >90% I/Os: - UO: 1,395 - 24h balance: -1,455 - Balance since admission: +20,395 - Rectal tube: 470 overnight Microbiology - Blood from 11/26 at 7:50AM + 3/4 with Proteus species - Urine from admission + Pseudomonas - Blood from 11/26 1800, 11/27 1100 and 11/28 at 700 NGTD PLAN - Continue BiPAP and taper as tolerated - Continue norepinephrine, vasopressin and hydrocortisone - Lasix 40mg IV BID - Continue antibiotic regimen with Zosyn for now. - F/U echocardiogram report - Repeat cultures today - Hold Eliquis - Zosyn day 3 11/30/2019 Labs: - WBC down from 18.93 to 10.04 and few bands - Platelets down from 35 to 16, no clumping - Lymphocytes down from 36 to 270 - Na up from 131 to 135 - GFR down from 14 to 13 - Lactic acid below 2 since 6AM today - Magnesium down from 2.6 to 2.4 Case discussed with patient's niece who asked BiPAP be removed and transition patient to comfort care status - BiPAP was removed and patient has tolerated this well with some changes in his oxygenation Mental status has not changed Comfort measures orders in for PRN medications 12/01/19 Has required a couple of Ativan doses and morphine Pulse ox has trended down slowly to high 80's low 90's VS stable overnight 12/02/19 Continues to require Ativan and Morphine Stable VS Making urine Still having output through rectal tube, watery Niece OK with hospice consult - Plan Plan:: Comfort measures only status Suctioning as needed PRN medications for symptom control No prophylaxis indicated Regular diet, patient can eat whatever he wants Bed mobility as tolerated Vital signs with each shift Avoid unnecessary interruptions COVID test prior to discharge CODE STATUS: Comfort measures only status DISPOSITION Patient will remain admitted for comfort measures with transfer back to [facility] when possible.
[2019-12-03] MEDS: Morphine 2 MG/ML SYRINGE IVPUSH PRN ×2 (05:49→09:36)
[2019-12-03] MEDS: Atropine 1% Ophth Soln 5 ML BOTTLE SL PRN (05:49)
[2019-12-03 07:47] VITALS: BP 105/67
--- NOTE | 2019-12-03 08:25 | PCM.DCSUM1 ---
Discharge Summary - Hospital Course HPI Initial Comments: This is an 89-year-old halfway resident who was brought to the ED via EMS after being found down by halfway staff. As per staff reports patient was found down around 3 AM, documenting low BP however patient was found to be normotensive by EMS with SBP in 150s Staff also stated patient was confused, normal baseline. Diagnosis: Stroke: No - Discharge Data Discharge Date: 12/03/19 Discharge Disposition: DC/Tfer to SNF 03 Condition: Good - Referral to Home Health Primary Care Physician: Brooks Arteaga MD - Discharge Diagnosis/Problem(s) (1) Comfort measures only status SNOMED Code(s): 02481212588529 ICD Code: Z51.5 - ENCOUNTER FOR PALLIATIVE CARE Status: Acute Current Visit: Yes (2) Septic shock due to urinary tract infection SNOMED Code(s): 50330520 ICD Code: A41.9 - SEPSIS, UNSPECIFIED ORGANISM; R65.21 - SEVERE SEPSIS WITH SEPTIC SHOCK; N39.0 - URINARY TRACT INFECTION, SITE NOT SPECIFIED Status: Acute Current Visit: Yes (3) UTI (urinary tract infection) SNOMED Code(s): 55829374 ICD Code: N39.0 - URINARY TRACT INFECTION, SITE NOT SPECIFIED Status: Acute Priority: High Current Visit: No Qualifiers: Urinary tract infection type: acute cystitis Hematuria presence: without hematuria Qualified Code(s): N30.00 - Acute cystitis without hematuria (4) Leukopenia SNOMED Code(s): 23721818, 047534247 ICD Code: D72.819 - DECREASED WHITE BLOOD CELL COUNT, UNSPECIFIED Status: Acute Current Visit: Yes (5) Thrombocytopenia SNOMED Code(s): 947144724 ICD Code: D69.6 - THROMBOCYTOPENIA, UNSPECIFIED Status: Acute Current Visit: Yes (6) H/O femoral vein thrombosis SNOMED Code(s): 425435750 ICD Code: Z86.718 - PERSONAL HISTORY OF OTHER VENOUS THROMBOSIS AND EMBOLISM Status: Acute Current Visit: Yes (7) Lactic acid acidosis SNOMED Code(s): 56152256 ICD Code: E87.2 - ACIDOSIS Status: Acute Current Visit: Yes (8) Acute kidney injury SNOMED Code(s): 81163250, 03807120 ICD Code: N17.9 - ACUTE KIDNEY FAILURE, UNSPECIFIED Status: Acute Current Visit: Yes (9) Suprapubic catheter SNOMED Code(s): 668958572, 174581971 ICD Code: Z93.59 - OTHER CYSTOSTOMY STATUS Status: Acute Current Visit: Yes (10) Chronic anticoagulation SNOMED Code(s): 898409967 ICD Code: Z79.01 - HALF-WAY (CURRENT) USE OF ANTICOAGULANTS Status: Acute Current Visit: Yes (11) Hypertension SNOMED Code(s): 81927612 ICD Code: I10 - ESSENTIAL (PRIMARY) HYPERTENSION Status: Acute Current Visit: Yes (12) GERD (gastroesophageal reflux disease) SNOMED Code(s): 950911343 ICD Code: K21.9 - GASTRO-ESOPHAGEAL REFLUX DISEASE WITHOUT ESOPHAGITIS Stat us: Acute Current Visit: Yes (13) Hypothyroidism SNOMED Code(s): 07466941 ICD Code: E03.9 - HYPOTHYROIDISM, UNSPECIFIED Status: Acute Current Visit: Yes (14) Cognitive deficits SNOMED Code(s): 936638865 ICD Code: R41.89 - OTH SYMPTOMS AND SIGNS W COGNITIVE FUNCTIONS AND AWARENESS Status: Acute Current Visit: Yes (15) alf resident SNOMED Code(s): 792532152 ICD Code: Z59.3 - PROBLEMS RELATED TO LIVING IN RESIDENTIAL INSTITUTION Status: Acute Current Visit: Yes (16) Elevated troponin SNOMED Code(s): 264057283, 433528900, 234008150 ICD Code: R79.89 - OTHER SPECIFIED ABNORMAL FINDINGS OF BLOOD CHEMISTRY Status: Acute Current Visit: No (17) Fall at halfway SNOMED Code(s): 127999309 ICD Code: W19.XXXA - UNSPECIFIED FALL, INITIAL ENCOUNTER; Y92.129 - UNSP PLACE IN CORRECTION PLACE Status: Acute Current Visit: No (18) High anion gap metabolic acidosis SNOMED Code(s): 34394500 ICD Code: E87.2 - ACIDOSIS Status: Acute Current Visit: No (19) Refractory shock SNOMED Code(s): 119589836 ICD Code: R57.9 - SHOCK, UNSPECIFIED Status: Acute Current Visit: Yes (20) Bacteremia due to Gram-negative bacteria SNOMED Code(s): 973120660793 ICD Code: R78.81 - BACTEREMIA Status: Acute Current Visit: Yes (21) Acute hypoxemic respiratory failure SNOMED Code(s): 417723222 ICD Code: J96.01 - ACUTE RESPIRATORY FAILURE WITH HYPOXIA Status: Acute Current Visit: Yes (22) Sepsis due to gram-negative UTI SNOMED Code(s): 239601535 ICD Code: A41.50 - GRAM-NEGATIVE SEPSIS, UNSPECIFIED; N39.0 - URINARY TRACT INFECTION, SITE NOT SPECIFIED Status: Acute Current Visit: Yes (23) Acute respiratory acidosis SNOMED Code(s): 26873494 ICD Code: E87.2 - ACIDOSIS Status: Acute Current Visit: Yes (24) Thrombocytopenia SNOMED Code(s): 173107191 ICD Code: D69.6 - THROMBOCYTOPENIA, UNSPECIFIED Status: Acute Current Visit: Yes - Patient Summary/Data Hospital Course: 11/27/2019 This is an 89-year-old halfway resident who was brought to the ED via EMS after being found down by halfway staff. As per staff reports patient was found down around 3 AM, documenting low BP however patient was found to be normotensive by EMS with SBP in 150s Staff also stated patient was confused, normal baseline. Vital signs upon admission to the emergency department with a heart rate of 104, temp of 98.6, mean arterial pressure 161, pulse ox of 90 Orthostatic vital signs positive Repeat blood pressure with a map of 66 Lab results White count 2.44 with 78% neutrophils and 1% bands Platelets 122 MCV 102.8 with MCHC 33.3 INR 1.18 Anion gap 19.7, CO2 19 GFR 34 Lactic acid 10.1 Phosphorus 1.9 Magnesium 1.9 LFTs: Total bilirubin 1.8, AST 273, ALT 308, alkaline phosphatase 97 Troponin I 0.061 Total protein 5.8 and albumin 2.7 Urinalysis: Pain, slightly cloudy, pH 7.5, 2+ protein, 3+ occult blood, positive nitrites, 2+ leukocyte esterase, over 100 RBCs, 10-20 WBCs, few triple phosphate crystals, many amorphous sediment, moderate urinary bacteria COVID test negative Chest x-ray within normal limits Sepsis alert was called and patient was started on Zosyn, fluid bolus as per ideal body weight is 2600 mL's of LR Discussed case with niece who is MPOA and she stated that you would not want to pursue any active cardiovascular work-up for which troponins will not be trended. Upon admission to the ED patient was described as being lethargic and unresponsive - Upon my evaluation patient is responsive and answering questions THLOPTHLOCCO [place] II score of 23 with predicted rate of 46% Admission plan - Start Zosyn - Pancultured prior to antibiotics - LR bolus according to IBW--> 2.5L - LR @ 250 - Repeat lactic acid every 3 hours until less than 2 - Norepinephrine drip started after central line placed - Arterial line placed - Continue Xarelto - Hold home BP and rate control medications Lactic acid continued to trend upwards and required multiple fluid bolus 11/28/2019 Overnight Events: - Was agitated late yesterday, given Ativan to which he responded appropriately and slept through the night - Given IV furosemide with improvement in urine output - O2 Sat dropped and patient had significant crackles on physical exam for which he was placed on BiPAP and NC was discontinued - BP improved, LR discontinued Had decrease in pulse oximetry overnight and was placed on NC around 3AM and has been on it - He was given multiple IVF bolus with a positive balance of over 10L - His urinary output has been minimal likely 2/2 hypovolemia BP continues to be borderline, patient on max norepinephrine--> added vasopressin and hydrocortisone - Tapered off IVF due to significantly positive balance AMANDA worsened with minimal urine output - Given IV lasix which improved urine output, >500mL Worsened respiratory distress with respiratory acidosis on ABGs--> placed on BiPAP - Repeat CXR without significant abnormalities Neutrophils with vacuoles and toxic granulation - Admission procalcitonin >50 (multifactorial) Patient with large watery with mucus bowel movements continuously for which decision was made to place rectal tube. Vital Signs: - MAP trend: 44-86 - HR trend: 94-106 - Tmax: 96.8-98.6 - SatO2: >84% Drips and IVF: - Norepinephrine @ 7mcg - Vasopressin @0.035u I/Os: - UO: 555 - 24h balance: +12,951 - Balance since admission: +21, 814 - BM: rectal tube in place Labs: - WBC down from 20.27 to 18.93, still with vacuoles and + bandemia - Plt down from 79 to 35 - Na down from 135 to 131 - GFR down from 17 to 14 - Lactic acid trending down, now 6 - Digoxin level is low Cultures: - Blood from 11/26 at 7:50AM + 3/4 with gram negative rods at 12 and 21h - Urine from admission + gram negative rods - Blood from 11/26 1800 NGTD PLAN Echocardiogram performed due to bacteremia Blood cultures from admission 07/08 + from gram negative rods Urine culture + gram negative rods Zosyn day 2 Acute thrombocytopenia likely from consumption 11/29/2019 Was on BiPAP all day with FiO2 tapered down to 50% BP stable throughout the day--> vasopressors discontinued at 2200 Platelets continue to trend down - No heparin use - No signs of spontaneous bleeding Urine output continue to improve throughout the day Discussion had with niece regarding his prognosis, will continue to update daily Lactic acid continues to trend down Vital Signs: - MAP trend: 65-90 - HR trend: 65-90 - Tmax: 96.5-97.2 - SatO2: >90% I/Os: - UO: 1,395 - 24h balance: -1,455 - Balance since admission: +20,395 - Rectal tube: 470 overnight Microbiology - Blood from 11/26 at 7:50AM + 07/08 with Proteus species - Urine from admission + Pseudomonas - Blood from 11/26 1800, 11/27 1100 and 11/28 at 700 NGTD PLAN - Continue BiPAP and taper as tolerated - Continue norepinephrine, vasopressin and hydrocortisone - Lasix 40mg IV BID - Continue antibiotic regimen with Zosyn for now. - F/U echocardiogram report - Repeat cultures today - Hold Eliquis - Zosyn day 3 11/30/2019 Labs: - WBC down from 18.93 to 10.04 and few bands - Platelets down from 35 to 16, no clumping - Lymphocytes down from 36 to 270 - Na up from 131 to 135 - GFR down from 14 to 13 - Lactic acid below 2 since 6AM today - Magnesium down from 2.6 to 2.4 Case discussed with patient's niece who asked BiPAP be removed and transition patient to comfort care status - BiPAP was removed and patient has tolerated this well with some changes in his oxygenation Mental status has not changed Comfort measures orders in for PRN medications 12/01/19 Has required a couple of Ativan doses and morphine Pulse ox has trended down slowly to high 80's low 90's VS stable overnight 12/02/19 Continues to require Ativan and Morphine Stable VS Making urine Still having output through rectal tube, watery Niece OK with hospice consult 12/03/19 Stable but still unarousable Hospice set up Patient ready to be discharged - Patient Instructions Diet: Regular Diet as Tolerated Activity: As Tolerated - Discharge Plan *PRESCRIPTION DRUG MONITORING PROGRAM REVIEWED*: Not Applicable *COPY OF PRESCRIPTION DRUG MONITORING REPORT IN PATIENT YOUNG: Not Applicable Prescriptions/Med Rec: Atropine 1% [Atropine 1% Ophth Soln] 3 drop SL Q1H PRN #1 bottle PRN Reason: Resp. secretions or congestion Lactoperoxi/Gluc Oxid/Pot Thio [Biotene Oralbalance Gel] 2 gm MUCMEM ASDIRECTED PRN #1 tube PRN Reason: dry mouth Carboxymethylcellulose Sodium [Refresh Liquigel 1%] 1 - 2 ml EYEBOTH QID PRN #1 bottle PRN Reason: Dry Eyes Home Medications: Home Meds Atropine 1% [Atropine 1% Ophth Soln] 3 drop SL Q1H PRN #1 bottle 12/03/19 [Rx] Carboxymethylcellulose Sodium [Refresh Liquigel 1%] 1 - 2 ml EYEBOTH QID PRN #1 bottle 12/03/19 [Rx] Lactoperoxi/Gluc Oxid/Pot Thio [Biotene Oralbalance Gel] 2 gm MUCMEM ASDIRECTED PRN #1 tube 12/03/19 [Rx] Oxygen Therapy Mode: Room Air Patient Handouts: Sepsis, Diagnosis, Adult Forms: ED Department Discharge Referrals: Brooks Arteaga MD [Primary Care Provider] - - Discharge Summary/Plan Comment DC Time >30 min.: Yes - General Info Date of Service: 12/03/19 Subjective Update: PRN medication use 1 Ativan dose at 5AM 12/01 1 Morphine dose at 5AM 12/02 No reports from nursing staff - Patient Data Vitals - Most Recent: Last Vital Signs Temp 97.7 F 12/03/19 07:46 Pulse 94 12/03/19 08:00 Resp 24 H 12/03/19 07:46 BP 105/67 12/03/19 07:46 Pulse Ox 90 L 12/03/19 08:00 Weight - Most Recent: 83.733 kg - Exam General: Reports: Obtunded (unarousable) Lungs: Reports: Decreased Breath Sounds, Crackles, Rales Cardiovascular: Reports: Regular Rate, Regular Rhythm Discharge Operative/Procedures - Procedures Performed Arterial Line Indication: hemodynamic monitoring CL Indication: hemodynamic monitoring, medication administration
[2019-12-03] MEDS: Lactoperoxi/Gluc Oxid/Pot Thio 42 GM Tube MUCMEM PRN (09:12)
[2019-12-03 10:24] VITALS: PULSE 95
== END 2019-12-03 09:50 | DRG 871 ==
LOC: JD.ED 05:19 → JD.ICU 08:54
PROVIDERS: ADMIT Internal Medicine; ATTEND Internal Medicine
PROC: 03HY32Z Insertion of Monitoring Device into Upper Artery, Percutaneous Approach (ICD-10-PCS; principal; 2019-11-27)
PROC: 4A133B1 Monitoring of Arterial Pressure, Peripheral, Percutaneous Approach (ICD-10-PCS; 2019-11-27)
PROC: 4A133J1 Monitoring of Arterial Pulse, Peripheral, Percutaneous Approach (ICD-10-PCS; 2019-11-27)
PROC: 02HV33Z Insertion of Infusion Device into Superior Vena Cava, Percutaneous Approach (ICD-10-PCS; 2019-11-27)
PROC: 3E043XZ Introduction of Vasopressor into Central Vein, Percutaneous Approach (ICD-10-PCS; 2019-11-27)
DX: A41.50 Gram-negative sepsis, unspecified (principal); R65.21 Severe sepsis with septic shock; J96.01 Acute respiratory failure with hypoxia; N30.00 Acute cystitis without hematuria; E87.2 Acidosis; N17.9 Acute kidney failure, unspecified; R57.9 Shock, unspecified; Z51.5 Encounter for palliative care; D72.819 Decreased white blood cell count, unspecified; D69.6 Thrombocytopenia, unspecified; I10 Essential (primary) hypertension; Z79.01 Long term (current) use of anticoagulants; K21.9 Gastro-esophageal reflux disease without esophagitis; E03.9 Hypothyroidism, unspecified; R41.89 Other symptoms and signs involving cognitive functions and awareness; Z74.8 Other problems related to care provider dependency; W19.XXXA Unspecified fall, initial encounter; Y92.009 Unspecified place in unspecified non-institutional (private) residence as the place of occurrence of the external cause; Z20.828 Contact with and (suspected) exposure to other viral communicable diseases
CPT/HCPCS: 36415; 36600; 51798; 70450; 70450-26; 71045; 71045-26; 72125; 72125-26; 80048; 80053; 80162; 81001; 82248; 82570; 82803; 82962; 82977; 83605; 83735; 84100; 84145; 84156; 84300; 84484; 84540; 85007; 85025; 85027; 85610; 87040; 87077; 87086; 87088; 87186; 87493; 93005; 93010; 93306; 94660; 96361; 96365; 97110-GO; 97110-GP; 97162-GP; 97165-GO; 99285; 99285-25; A9270-GY; J0696; J1642; J1720; J1940; J2060; J2270; J2543; J3475; J3490; J7050; J7060; J7120; U0002